=== PATIENT | female | born 1955 | race Caucasian/White ===

== ENCOUNTER → 2017-11-06 14:02 | Outpatient (CLI) | payer OTHER, SELFPAY ==
--- NOTE | 2017-11-06 14:09 | RAD_ITS ---
STUDY: X-RAY - RIGHT WRIST REASON FOR EXAM: Female, 62 years old. Wrist pain. Fall. TECHNIQUE: 4 view(s) of the wrist were obtained. COMPARISON: None. FINDINGS: Normal visualized distal radius and ulna. Normal radiocarpal articulation. Normal distal radioulnar articulation. Normal carpal bones. Normal carpal articulations. Normal carpometacarpal articulation of the thumb. Normal second through fifth carpometacarpal articulations. Normal visualized metacarpal bones. The soft tissue structures are unremarkable. There is no demonstrated acute fracture. RAD/Wrist min 3 Views IMPRESSION: Normal x-ray examination of the wrist. Electronically Signed: Amos Vega MD at 10:01 EDT , Service support ,
[2017-11-06 16:02] LABS: Color, Urine Yellow (Yellow); Glucose, Dipstick Normal (Normal); Ketone-Dipstick Negative (Negative); Leukocyte Esterase-Dipstick Negative /ul (Negative); Nitrite-Dipstick Negative (Negative); Occult Blood-Urine Negative /ul (Negative); Protein-Dipstick Negative (Negative); Urine Bilirubin Dipstick Negative (Negative); Urine Clarity Clear (Clear); Urine Urobilinogen Normal (Normal)
[2017-11-06 16:12] LABS: Albumin, Serum 3.8 g/dL (3.2-5.0); BUN 14 mg/dL (7-18); BUN/Creat Ratio 14.8 RATIO (10-20); Calcium,Total 8.5 mg/dL (8.5-10.1); Chloride 107 mmol/L (98-107); Creatinine, Serum 0.95 mg/dL (0.55-1.02); EST Glomerular Filtration Rate 64 mL/min (>60); Est Glom Filt Rate - Afr Amer 77 mL/min (>60); Glucose 96 mg/dL (74-106); Sodium Level 142 mmol/L (136-145)
== END ==
PROVIDERS: Internal Medicine Rheumatology; Family Provider Family Medicine; PCP Family Medicine; Visit Provider Family Medicine
DX: M25.531 Pain in right wrist (principal); N28.9 Disorder of kidney and ureter, unspecified
CPT/HCPCS: 36415; 73110; 80069; 81002

== ENCOUNTER → 2017-12-18 06:16 | Outpatient (CLI) | payer OTHER, SELFPAY ==
[2017-12-18 07:07] LABS: Absolute Lymphocyte Count 1.76 X10^3/ul (0.83-4.51); Absolute Neutrophil Count 4.2 X10^3/uL (2.0-7.7); Basophil# 0.03 X10^3/uL; Basophil% 0.5 % (0-1); Eosinophil# 0.19 X10^3/uL; Eosinophils% 2.9 % (0-5); Hematocrit 40.6 % (37-47); Hemoglobin 13.2 g/dl (12.0-15.0); Lymphocyte # 1.76 X10^3/ul (4.0); Mean Corp Hgb Conc 32.5 g/gl (32-36); Mean Corpuscular Hgb 30.3 pg (27.0-32.0); Mean Corpuscular Volume 93.1 fL (81-99); Mean Platelet Vol. 11.7 fl (6.2-12.0); Monocyte# 0.36 X10^3/uL; Monocyte% 5.5 % (0-10); Neutrophil # 4.16 X10^3/uL (2.7-7.7); Neutrophil % 63.9 % (47-70); Platelet Count 258 K/mm3 (150-450); RBC Distribution Width CV 13.7 % (11.6-14.6); RBC Distribution Width SD 46.7 fl (35.1-43.9); Red Blood Count 4.36 M/mm3 (4.2-5.4); White Blood Count 6.5 K/mm3 (4.4-11.0)
[2017-12-18 07:40] LABS: AST(SGOT) 25 U/L (15-37); Alanine Aminotransfer ALT/SGPT 46 U/L (13-56); Albumin, Serum 3.6 g/dL (3.2-5.0); Alkaline Phosphatase 42 U/L (45-117); Anion Gap 6 (5-15); BUN 19 mg/dL (7-18); BUN/Creat Ratio 24.8 RATIO (10-20); Calcium,Total 8.5 mg/dL (8.5-10.1); Chloride 108 mmol/L (98-107); Creatinine, Serum 0.76 mg/dL (0.55-1.02); EST Glomerular Filtration Rate 82 mL/min (>60); Est Glom Filt Rate - Afr Amer 99 mL/min (>60); Estradiol 38.3 pg/mL; Follicle Stimulating Hormone 31.2 mIU/mL; Free T3 2.3 pg/mL (2.18-3.98); Globulin 3.6 g/dL (2.2-4.2); Glucose 102 mg/dL (74-106); Protein, Total 7.2 g/dL (6.4-8.2); Sodium Level 138 mmol/L (136-145); T4 Total, Thyroxin 7.3 ug/dL (4.8-13.9)
[2017-12-18 07:58] LABS: POSITIVE COUNT NO; POSITIVE DIFFERENTIAL NO; POSITIVE MORPHOLOGY NO
== END ==
PROVIDERS: Family Provider Family Medicine; PCP Family Medicine; Visit Provider Nurse Practitioner Family
DX: E03.8 Other specified hypothyroidism (principal); E34.9 Endocrine disorder, unspecified; R53.83 Other fatigue
CPT/HCPCS: 36415; 80053; 82670; 83001; 84403; 84436; 84443; 84481; 85025

== ENCOUNTER → 2018-11-07 07:47 | Outpatient (CLI) | payer OTHER, SELFPAY ==
[2018-11-07 08:47] LABS: Absolute Lymphocyte Count 1.17 X10^3/ul (0.83-4.51); Absolute Neutrophil Count 4.6 X10^3/uL (2.0-7.7); Basophil# 0.06 X10^3/uL; Basophil% 0.8 % (0-1); Eosinophil# 0.93 X10^3/uL; Eosinophils% 11.9 % (0-5); Hemoglobin 14.1 g/dl (12.0-15.0); Lymphocyte # 1.17 X10^3/ul (4.0); Lymphocyte % 14.9 % (19-41); Mean Corp Hgb Conc 33.6 g/gl (32-36); Mean Corpuscular Hgb 31.6 pg (27.0-32.0); Mean Corpuscular Volume 94.2 fL (81-99); Mean Platelet Vol. 11.9 fl (6.2-12.0); Monocyte# 1.08 X10^3/uL; Monocyte% 13.8 % (0-10); Neutrophil # 4.57 X10^3/uL (2.7-7.7); Neutrophil % 58.3 % (47-70); Platelet Count 247 K/mm3 (150-450); RBC Distribution Width CV 13.6 % (11.6-14.6); RBC Distribution Width SD 45.1 fl (35.1-43.9); Red Blood Count 4.46 M/mm3 (4.2-5.4); White Blood Count 7.8 K/mm3 (4.4-11.0)
[2018-11-07 08:50] LABS: POSITIVE COUNT NO; POSITIVE DIFFERENTIAL NO; POSITIVE MORPHOLOGY NO
[2018-11-07 09:22] LABS: ALB/GLOB Ratio 1.1 RATIO (0.9-2.4); AST(SGOT) 16 U/L (15-37); Alanine Aminotransfer ALT/SGPT 25 U/L (13-56); Albumin, Serum 3.9 g/dL (3.2-5.0); Alkaline Phosphatase 32 U/L (45-117); Anion Gap 4 (5-15); BUN 14 mg/dL (7-18); BUN/Creat Ratio 20.4 RATIO (10-20); Calcium,Total 8.8 mg/dL (8.5-10.1); Chloride 108 mmol/L (98-107); Cholesterol 146 mg/dL (200); Creatinine, Serum 0.68 mg/dL (0.55-1.02); EST Glomerular Filtration Rate 92 mL/min (>60); Est Glom Filt Rate - Afr Amer 112 mL/min (>60); Follicle Stimulating Hormone 18.9 mIU/mL; Globulin 3.5 g/dL (2.2-4.2); Glucose 99 mg/dL (74-106); High Density Lipoprotein 61 mg/dL; Luteinizing Hormone 6.2 mIU/mL; Protein, Total 7.4 g/dL (6.4-8.2); Sodium Level 137 mmol/L (136-145); T4 Total, Thyroxin 7.4 ug/dL (4.8-13.9); Thyroid Stim Hormone (TSH) 1.84 uIU/mL (0.358-3.74); Triglycerides 70 mg/dL; Very Low Density Lipoprotein 14 mg/dL (5-40)
[2018-11-07 10:56] LABS: Progesterone Level 18.31 ng/mL (See Comment); Vitamin B12 556 pg/mL (211-911); Vitamin D,25 Hydroxy 51.2 ng/mL (29.95-100.01)
[2018-11-08 10:26] LABS: Thyroid Peroxidase AB 23 IU/mL (0-34)
== END ==
PROVIDERS: Family Provider Family Medicine; PCP Family Medicine; Referring Provider Nurse Practitioner Family; Visit Provider Nurse Practitioner Family
DX: E55.9 Vitamin D deficiency, unspecified (principal); E34.9 Endocrine disorder, unspecified; Z79.890 Hormone replacement therapy; Z13.220 Encounter for screening for lipoid disorders; R53.83 Other fatigue
CPT/HCPCS: 36415; 80053; 80061; 82306; 82607; 83001; 83002; 84144; 84436; 84443; 84481; 85025; 86376

== ENCOUNTER → 2019-08-25 | Outpatient (CLI) | payer OTHER, SELFPAY ==
[2019-08-25 07:01] LABS: Absolute Lymphocyte Count 1.59 X10^3/uL (0.83-4.51); Absolute Neutrophil Count 6.1 X10^3/uL (2.0-7.7); Basophil# 0.09 X10^3/uL; Eosinophil# 0.52 X10^3/uL; Eosinophils% 5.8 % (0-5); Hematocrit 42.5 % (37-47); Hemoglobin 14.1 g/dL (12.0-15.0); Lymphocyte # 1.59 X10^3/ul (4.0); Lymphocyte % 17.7 % (19-41); Mean Corp Hgb Conc 33.2 g/dL (32-36); Mean Corpuscular Hgb 32.3 pg (27.0-32.0); Mean Corpuscular Volume 97.5 fL (81-99); Mean Platelet Vol. 11.4 fl (6.2-12.0); Monocyte# 0.69 X10^3/uL; Monocyte% 7.7 % (0-10); NRBC Flagged by Analyzer 0 % (0-5); Neutrophil # 6.07 X10^3/uL (2.7-7.7); Neutrophil % 67.5 % (47-70); Platelet Count 272 K/mm3 (150-450); RBC Distribution Width CV 13.5 % (11.6-14.6); RBC Distribution Width SD 48.3 fl (35.1-43.9); Red Blood Count 4.36 M/mm3 (4.2-5.4)
[2019-08-25 07:27] LABS: ALB/GLOB Ratio 1.1 RATIO (0.9-2.4); AST(SGOT) 12 U/L (15-37); Alanine Aminotransfer ALT/SGPT 26 U/L (13-56); Albumin, Serum 3.7 g/dL (3.2-5.0); Alkaline Phosphatase 30 U/L (45-117); Anion Gap 7 (5-15); BUN 24 mg/dL (7-18); BUN/Creat Ratio 28.9 RATIO (10-20); Calcium,Total 8.4 mg/dL (8.5-10.1); Chloride 112 mmol/L (98-107); Cholesterol 152 mg/dL (200); Creatinine, Serum 0.83 mg/dL (0.55-1.02); EST Glomerular Filtration Rate 74 mL/min (>60); Est Glom Filt Rate - Afr Amer 89 mL/min (>60); Globulin 3.4 g/dL (2.2-4.2); Glucose 96 mg/dL (74-106); High Density Lipoprotein 64 mg/dL; Potassium 3.8 mmol/L (3.5-5.1); Protein, Total 7.1 g/dL (6.4-8.2); Sodium Level 141 mmol/L (136-145); Triglycerides 56 mg/dL; Very Low Density Lipoprotein 11 mg/dL (5-40)
== END | disposition home or self-care (01) ==
LOC: LAB.FUTURE 06:10 → LAB 12:30
PROVIDERS: PCP Family Medicine; Referring Provider Family Medicine; Visit Provider Family Medicine
DX: Z00.00 Encounter for general adult medical examination without abnormal findings (principal)
CPT/HCPCS: 36415; 80053; 80061; 85025

== ENCOUNTER → 2019-10-29 | Outpatient (CLI) | payer OTHER, SELFPAY ==
[2019-10-29 07:02] LABS: Absolute Neutrophil Count 5.1 X10^3/uL (2.0-7.7); Basophil# 0.09 X10^3/uL; Basophil% 1.1 % (0-1); Eosinophil# 0.26 X10^3/uL; Eosinophils% 3.3 % (0-5); Hematocrit 42.3 % (37-47); Hemoglobin 14.2 g/dL (12.0-15.0); Lymphocyte % 22.8 % (19-41); Mean Corp Hgb Conc 33.6 g/dL (32-36); Mean Corpuscular Hgb 32.3 pg (27.0-32.0); Mean Corpuscular Volume 96.1 fL (81-99); Mean Platelet Vol. 11.5 fl (6.2-12.0); Monocyte# 0.64 X10^3/uL; Monocyte% 8.1 % (0-10); NRBC Flagged by Analyzer 0 % (0-5); Neutrophil # 5.07 X10^3/uL (2.7-7.7); Neutrophil % 64.2 % (47-70); Platelet Count 263 K/mm3 (150-450); RBC Distribution Width CV 13.3 % (11.6-14.6); RBC Distribution Width SD 47.1 fl (35.1-43.9); White Blood Count 7.9 K/mm3 (4.4-11.0)
[2019-10-29 07:30] LABS: Hemoglobin A1c 5.5 % (4.2-6.3)
[2019-10-29 07:36] LABS: ALB/GLOB Ratio 1.1 RATIO (0.9-2.4); AST(SGOT) 9 U/L (15-37); Alanine Aminotransfer ALT/SGPT 23 U/L (13-56); Albumin, Serum 3.9 g/dL (3.2-5.0); Alkaline Phosphatase 30 U/L (45-117); Anion Gap 9 (5-15); BUN 21 mg/dL (7-18); BUN/Creat Ratio 27.8 RATIO (10-20); Calcium,Total 8.4 mg/dL (8.5-10.1); Chloride 112 mmol/L (98-107); Cholesterol 170 mg/dL (200); Creatinine, Serum 0.76 mg/dL (0.55-1.02); EST Glomerular Filtration Rate 82 mL/min (>60); Est Glom Filt Rate - Afr Amer 100 mL/min (>60); Estradiol 57.2 pg/mL; Follicle Stimulating Hormone 16.7 mIU/mL; Free T3 2.2 pg/mL (2.18-3.98); Globulin 3.5 g/dL (2.2-4.2); Glucose 108 mg/dL (74-106); High Density Lipoprotein 60 mg/dL; Luteinizing Hormone 9.5 mIU/mL; Potassium 3.9 mmol/L (3.5-5.1); Protein, Total 7.4 g/dL (6.4-8.2); Sodium Level 142 mmol/L (136-145); T4 Total, Thyroxin 6.6 ug/dL (4.8-13.9); Thyroid Stim Hormone (TSH) 2.71 uIU/mL (0.358-3.74); Triglycerides 95 mg/dL; Very Low Density Lipoprotein 19 mg/dL (5-40)
[2019-10-29 08:00] LABS: Progesterone Level 16.92 ng/mL (See Comment); Vitamin B12 491 pg/mL (211-911); Vitamin D,25 Hydroxy 79.1 ng/mL
[2019-10-30 15:47] LABS: Thyroid Peroxidase AB < 9 IU/mL (0-34)
== END | disposition home or self-care (01) ==
PROVIDERS: PCP Family Medicine
DX: L40.50 Arthropathic psoriasis, unspecified (principal); E34.9 Endocrine disorder, unspecified; E03.8 Other specified hypothyroidism; E55.9 Vitamin D deficiency, unspecified; Z13.1 Encounter for screening for diabetes mellitus; Z13.220 Encounter for screening for lipoid disorders
CPT/HCPCS: 36415; 80053; 80061; 82306; 82607; 82627; 82670; 83001; 83002; 83036; 84144; 84403; 84436; 84443; 84481; 85025; 86376; 82626

== ENCOUNTER → 2020-05-26 14:02 | Outpatient (CLI) | payer OTHER, SELFPAY ==
[2020-05-29 03:07] LABS: QNTFERON TB Mitogen Value > 10.00 IU/mL (.); QNTFERON TB Nil Value 0.05 IU/mL (.); QNTFERON TB1+ Ag Value 0.09 IU/mL (.); QNTFERON TB2+ Ag Value 0.08 IU/mL (.)
[2020-05-31 04:28] LABS: QNTIFERON TB Positive Criteria Negative (Negative)
== END ==
PROVIDERS: PCP Family Medicine
DX: L40.0 Psoriasis vulgaris (principal); Z79.899 Other long term (current) drug therapy
CPT/HCPCS: 36415; 86480

== ENCOUNTER → 2020-11-09 06:48 | Outpatient (CLI) | payer OTHER, SELFPAY ==
[2020-11-09 07:46] LABS: Absolute Lymphocyte Count 1.59 X10^3/uL (0.83-4.51); Absolute Neutrophil Count 6.3 X10^3/uL (2.0-7.7); Basophil# 0.07 X10^3/uL; Basophil% 0.8 % (0-1); Eosinophil# 0.36 X10^3/uL; Hematocrit 42.5 % (37-47); Hemoglobin 13.5 g/dL (12.0-15.0); Lymphocyte # 1.59 X10^3/ul (0.83-4.51); Lymphocyte % 17.6 % (19-41); Mean Corp Hgb Conc 31.8 g/dL (32-36); Mean Corpuscular Hgb 31.6 pg (27.0-32.0); Mean Corpuscular Volume 99.5 fL (81-99); Mean Platelet Vol. 12.3 fl (6.2-12.0); Monocyte% 7.8 % (0-10); NRBC Flagged by Analyzer 0 % (0-5); Neutrophil # 6.27 X10^3/uL (2.7-7.7); Neutrophil % 69.4 % (47-70); Platelet Count 271 K/mm3 (150-450); RBC Distribution Width SD 51.4 fl (35.1-43.9); Red Blood Count 4.27 M/mm3 (4.2-5.4)
[2020-11-09 08:16] LABS: AST(SGOT) 12 U/L (15-37); Alanine Aminotransfer ALT/SGPT 22 U/L (13-56); Albumin, Serum 3.5 g/dL (3.2-5.0); Alkaline Phosphatase 26 U/L (45-117); Anion Gap 3 (5-15); BUN 16 mg/dL (7-18); Calcium,Total 8.3 mg/dL (8.5-10.1); Chloride 113 mmol/L (98-107); Cholesterol 155 mg/dL (200); EST Glomerular Filtration Rate 90 mL/min (>60); Est Glom Filt Rate - Afr Amer 109 mL/min (>60); Globulin 3.4 g/dL (2.2-4.2); Glucose 97 mg/dL (74-106); High Density Lipoprotein 51 mg/dL; Protein, Total 6.9 g/dL (6.4-8.2); Sodium Level 140 mmol/L (136-145); T4 Free Direct 0.65 ng/dL (0.76-1.46); Thyroid Stim Hormone (TSH) 2.16 uIU/mL (0.358-3.74); Triglycerides 73 mg/dL; Very Low Density Lipoprotein 15 mg/dL (5-40)
== END ==
PROVIDERS: PCP Family Medicine; Referring Provider Family Medicine; Visit Provider Family Medicine
DX: I10 Essential (primary) hypertension (principal); K75.81 Nonalcoholic steatohepatitis (NASH); E03.9 Hypothyroidism, unspecified
CPT/HCPCS: 36415; 80053; 80061; 84439; 84443; 85025

== ENCOUNTER → 2021-03-01 12:46 | Outpatient (CLI) | payer OTHER, SELFPAY ==
[2021-03-01 13:50] LABS: Absolute Neutrophil Count 4.6 X10^3/uL (2.0-7.7); Basophil# 0.06 X10^3/uL; Basophil% 0.8 % (0-1); Eosinophil# 0.25 X10^3/uL; Eosinophils% 3.2 % (0-5); Hematocrit 44.8 % (37-47); Hemoglobin 14.5 g/dL (12.0-15.0); Lymphocyte % 28.3 % (19-41); Mean Corp Hgb Conc 32.4 g/dL (32-36); Mean Corpuscular Volume 95.7 fL (81-99); Mean Platelet Vol. 11.5 fl (6.2-12.0); Monocyte# 0.64 X10^3/uL; Monocyte% 8.2 % (0-10); NRBC Flagged by Analyzer 0 % (0-5); Neutrophil # 4.61 X10^3/uL (2.7-7.7); Neutrophil % 59.2 % (47-70); Platelet Count 270 K/mm3 (150-450); RBC Distribution Width CV 13.4 % (11.6-14.6); RBC Distribution Width SD 47.3 fl (35.1-43.9); Red Blood Count 4.68 M/mm3 (4.2-5.4); White Blood Count 7.8 K/mm3 (4.4-11.0)
== END ==
PROVIDERS: PCP Family Medicine
DX: D72.829 Elevated white blood cell count, unspecified (principal)
CPT/HCPCS: 36415; 85025

== ENCOUNTER → 2021-04-07 05:55 | Outpatient (CLI) | payer OTHER, SELFPAY ==
[2021-04-14 00:07] LABS: QNTFERON TB Mitogen Value > 10.00 IU/mL (.); QNTFERON TB Nil Value 0.05 IU/mL (.); QNTFERON TB1+ Ag Value 0.07 IU/mL (.); QNTFERON TB2+ Ag Value 0.16 IU/mL (.)
[2021-04-14 15:18] LABS: QNTIFERON TB Positive Criteria Negative (Negative)
== END ==
PROVIDERS: PCP Family Medicine
DX: L40.0 Psoriasis vulgaris (principal); Z79.899 Other long term (current) drug therapy
CPT/HCPCS: 36415; 86480

== ENCOUNTER 2021-07-20 06:02 | Outpatient (CLI) | payer OTHER, SELFPAY ==
[2021-07-20 07:39] LABS: Absolute Lymphocyte Count 2.24 X10^3/uL (0.83-4.51); Absolute Neutrophil Count 4.2 X10^3/uL (2.0-7.7); Basophil# 0.09 X10^3/uL; Basophil% 1.2 % (0-1); Eosinophil# 0.49 X10^3/uL; Eosinophils% 6.4 % (0-5); Hematocrit 45.1 % (37-47); Hemoglobin 15.2 g/dL (12.0-15.0); Lymphocyte # 2.24 X10^3/ul (0.83-4.51); Lymphocyte % 29.2 % (19-41); Mean Corp Hgb Conc 33.7 g/dL (32-36); Mean Corpuscular Hgb 31.9 pg (27.0-32.0); Mean Corpuscular Volume 94.5 fL (81-99); Mean Platelet Vol. 11.3 fl (6.2-12.0); Monocyte# 0.62 X10^3/uL; Monocyte% 8.1 % (0-10); NRBC Flagged by Analyzer 0 % (0-5); Neutrophil # 4.17 X10^3/uL (2.7-7.7); Neutrophil % 54.4 % (47-70); Platelet Count 334 K/mm3 (150-450); RBC Distribution Width CV 13.2 % (11.6-14.6); RBC Distribution Width SD 45.4 fl (35.1-43.9); Red Blood Count 4.77 M/mm3 (4.2-5.4); White Blood Count 7.7 K/mm3 (4.4-11.0)
[2021-07-20 08:30] LABS: Vitamin D,25 Hydroxy 70.2 ng/mL
[2021-07-20 10:46] LABS: ALB/GLOB Ratio 1.1 RATIO (0.9-2.4); AST(SGOT) 16 U/L (15-37); Alanine Aminotransfer ALT/SGPT 31 U/L (13-56); Alkaline Phosphatase 29 U/L (45-117); Anion Gap 7 (5-15); BUN 17 mg/dL (7-18); Calcium,Total 9.1 mg/dL (8.5-10.1); Chloride 105 mmol/L (98-107); Cholesterol 160 mg/dL (200); EST Glomerular Filtration Rate 67 mL/min (>60); Est Glom Filt Rate - Afr Amer 81 mL/min (>60); Globulin 3.7 g/dL (2.2-4.2); Glucose 115 mg/dL (74-106); High Density Lipoprotein 52 mg/dL; Potassium 4.3 mmol/L (3.5-5.1); Protein, Total 7.7 g/dL (6.4-8.2); Sodium Level 137 mmol/L (136-145); T4 Free Direct 0.84 ng/dL (0.76-1.46); Thyroid Stim Hormone (TSH) 2.84 uIU/mL (0.358-3.74); Triglycerides 90 mg/dL; Very Low Density Lipoprotein 18 mg/dL (5-40)
== END 2021-07-20 23:59 | disposition short-term general hospital (02) ==
LOC: LAB 06:06
PROVIDERS: PCP Family Medicine; Referring Provider Family Medicine; Visit Provider Family Medicine
DX: Z00.00 Encounter for general adult medical examination without abnormal findings (principal); E03.9 Hypothyroidism, unspecified; M85.80 Other specified disorders of bone density and structure, unspecified site
CPT/HCPCS: 36415; 80053; 80061; 82306; 84439; 84443; 85025

== ENCOUNTER → 2022-02-24 | Outpatient (CLI) | payer MEDICARE, OTHER, SELFPAY ==
[2022-02-24 13:50] LABS: Estradiol 27.2 pg/mL
[2022-02-26 11:40] LABS: DHEA Sulfate 86.9 ug/dL (20.4-186.6)
== END | disposition home or self-care (01) ==
LOC: LAB 12:05
PROVIDERS: PCP Family Medicine; Referring Provider Family Medicine; Visit Provider Family Medicine
DX: R79.89 Other specified abnormal findings of blood chemistry (principal); E28.39 Other primary ovarian failure
CPT/HCPCS: 36415; 82627; 82670; 84144; 84403; 82626

== ENCOUNTER → 2022-06-05 | Outpatient (CLI) | payer MEDICARE, OTHER, SELFPAY ==
--- NOTE | 2022-06-05 08:52 | BI_ITS ---
MAMMOGRAPHY - BILATERAL SCREENING REASON FOR EXAM: Female, 66 years old. Routine annual screening examination. PERTINENT HISTORY: Non-contributory. TECHNIQUE: Digital bilateral breast joelle (3D mammographic acquisition) in the CC and MLO projections. 2-D mediolateral oblique (MLO) and craniocaudad (CC) views of both breasts were obtained. CAD: Full Field Digital Mammography with Computer Added Detection was performed. COMPARISON: Comparison is made with prior EXAMINATION 05/09/2021 and 09/09/2013. FINDINGS: Breast Composition: There are scattered areas of fibroglandular density. There are no dominant masses or suspicious calcifications. Stable benign-appearing bilateral axillary lymph nodes. No other significant abnormalities are identified. There has been no significant change since the prior study. BI/SCRN MAMM (CAD)W/JOELLE BILAT IMPRESSION: Stable bilateral screening mammogram. Yearly follow-up mammogram recommended. (A) ASSESSMENT CATEGORY: BIRADS Category 2: Benign. A letter regarding these results will be sent to the patient by the facility within 30 days. Approximately 10% of breast cancers are not detected by mammography. A normal mammogram should not delay biopsy of a clinically suspicious abnormality. [id number] Electronically Signed: Uvaldo Villa MD at 10:16 EST ,
== END | disposition home or self-care (01) ==
LOC: OPBI 08:50
PROVIDERS: PCP Family Medicine; Referring Provider Family Medicine; Visit Provider Family Medicine
DX: Z12.31 Encounter for screening mammogram for malignant neoplasm of breast (principal)
CPT/HCPCS: 77063; 77067

== ENCOUNTER → 2022-06-09 | Outpatient (CLI) | payer MEDICARE, OTHER, SELFPAY ==
[2022-06-09 11:55] LABS: Progesterone Level 0.33 ng/mL (See Comment)
== END | disposition home or self-care (01) ==
LOC: LAB 09:38
PROVIDERS: PCP Family Medicine; Referring Provider Family Medicine; Visit Provider Family Medicine
DX: E34.9 Endocrine disorder, unspecified (principal)
CPT/HCPCS: 36415; 84144

== ENCOUNTER 2022-06-24 06:14 | Emergency (ER) | payer MEDICARE, OTHER, SELFPAY ==
[2022-06-24 06:18] VITALS: BP 148/101; PULSE 97; RESP 18; TEMP 36.8; O2SAT 94; BMI 29.9
--- NOTE | 2022-06-24 06:45 | EDS_ITS ---
HPI History of Present Illness Chief Complaint: Cold Sx Narrative Narrative: Patient is a 66-year-old female with past medical history of hypothyroid disease. She states she has had nasal congestion for approximately 1 month. She reports in the last 24 hours she feels like its been more persistent. She denies any fevers or chills or known sick contact. She denies any difficulty breathing or swallowing. However with the recent increase in the nasal congestion she was concerned about possible infection and therefore comes in for evaluation [facility] Medical History Arthritis Home Medications azelastine-fluticasone 137 mcg-50 mcg/spray nasal spray (Dymista) 1 spray intranasal BID #23 grams 06/24/22 [Rx Last Taken Unknown] leflunomide 20 mg tablet 20 mg PO DAILY 06/24/22 [History Last Taken Unknown] meloxicam 7.5 mg tablet 7.5 mg PO BID PRN PRN Pain 06/24/22 [History Last Taken Unknown] prednisone 20 mg tablet 40 mg PO DAILY 5 days #10 tabs 06/24/22 [Rx Last Taken Unknown] thyroid (pork) 60 mg tablet ([place] Thyroid) 60 mg PO DAILY 06/24/22 [History Last Taken Unknown] Allergy/AdvReac Type Severity Reaction Status Date / Time cefdinir Allergy Nausea Verified 06/24/22 06:15 Penicillins [PCN] Allergy Other Verified 06/24/22 06:15 Surgical History (Updated 06/24/22 @ 06:17 by Adelso Matos) H/O: hysterectomy Social History Smoking Status: Never smoker [facility] ED Constitutional Constitutional ED: Denies chills or fever(s) Eyes Eyes: Denies change in vision ENT ENT ED: Reports ear pain, rhinorrhea and sore throat Cardiovascular Cardiovascular: Denies chest pain Respiratory/Chest Respiratory/Chest: Denies cough or dyspnea Gastrointestinal Gastrointestinal: Denies abdominal pain, diarrhea, nausea or vomiting Genitourinary Genitourinary ED: Denies dysuria Musculoskeletal Musculoskeletal: Denies myalgias Integumentary Denies rash Neurologic Neurologic: Reports headache(s) Hematologic/Lymphatic Hematologic/Lymphatic: Denies easy bleeding or easy bruising EXAM Physical Exam Const Vital Signs: 06/24/22 06:18 06/24/22 06:22 Temperature 98.3 F Temperature Source Oral Pulse Rate 97 Respiratory Rate 18 Respiratory Effort Normal Respiratory Pattern Irregular Blood Pressure 148/101 H Blood Pressure Mean 116 Pulse Ox 94 Oxygen Delivery Method Room Air Positive well nourished and well developed General Appearance ED: well developed HEENT Reports moist mucous membranes HEENT Narrative: Nasal mucosa is hyperemic and boggy with enlarged inferior nasal turbinates. There is cobblestoning the posterior pharynx consistent with sinus drainage without airway edema or compromise. No trismus change in voice or difficulty with secretions. No tonsil hypertrophy or exudates noted. Bilateral TMs are retracted but show no secondary changes to suggest infection No severe pain with palpation over top the maxillary frontal or ethmoid sinuses Eyes PERRL and EOMs intact bilaterally Neck supple Neck Narrative: Positive anterior cervical lymphadenopathy noted Resp normal respiratory effort and clear to auscultation bilaterally Cardio regular rate and regular rhythm Extremity normal to inspection Neuro oriented x3 and CN's II-XII intact bilaterally Sensorium / Orientation: alert Psych mental status grossly normal Skin no rashes or lesions noted MDM MDM MDM Narrative Medical decision making narrative: Patient presented to the ER hypertensive but otherwise with stable vitals. She reported a longstanding history of nasal congestion that was worse in the last 24 hours. On exam she has an enlarged/inflamed nasal turbinates and a hyperemic mucosa consistent with her symptoms. There is no signs of infection in the posterior pharynx. We discussed possible viral swabs such as COVID and influenza but as patient is afebrile and has minimal cough she did not want these obtained. Therefore at this time she is in no respiratory distress does not have signs of posterior pharynx infection and her exam is most consistent with nasal inflammation from a viral source. Therefore she will be given symptomatic medication but is otherwise safe for discharge. She will be given ENT to follow-up with based on the persistent nature of her symptoms in order to discuss further testing. Discharge Plan Triage Chief Complaint: Cold Sx ED Provider: Bon Gaston Dx/Rx/DC Orders Clinical Impression: Hypertrophy of both inferior nasal turbinates, Chronic nasal congestion Instructions: Anatomy Nasal, ED Upper Resp Infec Abx Tx Prescriptions: New azelastine-fluticasone [Dymista] 137-50 mcg/spray spray,non-aerosol 1 spray intranasal BID Qty: 23 2RF Rx Instructions: administer into each nostril prednisone 20 mg tablet 40 mg PO DAILY 5 Days Qty: 10 0RF No Action leflunomide 20 mg tablet 20 mg PO DAILY Label Comments: TAKE 1 TABLET BY MOUTH EVERY DAY FOR 90 DAYS meloxicam 7.5 mg tablet 7.5 mg PO BID PRN PRN (Reason: Pain) thyroid (pork) [[place] Thyroid] 60 mg tablet 60 mg PO DAILY Label Comments: TAKE 1 TABLET BY MOUTH EVERY DAY ON AN EMPTY STOMACH Primary Care Provider: Hua Vieyra Referrals: Jared Larsen MD [Med Staff - Active Staff] - Hua Vieyra DO [Primary Care Provider] - Activity Restrictions/Additional Instructions: You may also use [id number] Afrin nasal spray by taking 2 sprays to each nostril once a day prior to bedtime for the next 6 nights to help with symptoms. Please follow-up with ENT to discuss further testing and treatment options because of your persistent symptoms and return to the ER should you have any further concerns Disposition Disposition: Home, Self Care
[2022-06-24] MEDS: dexAMETHasone 10 MG/ML Vial PO.IVFORM (06:56)
== END 2022-06-24 06:57 | disposition home or self-care (01) ==
LOC: ED 06:56
PROVIDERS: Emergency Provider Emergency Medicine; PCP Family Medicine; Visit Provider Emergency Medicine
DX: J34.3 Hypertrophy of nasal turbinates (principal); R09.81 Nasal congestion; E03.9 Hypothyroidism, unspecified; Z79.52 Long term (current) use of systemic steroids; Z79.899 Other long term (current) drug therapy
CPT/HCPCS: 99283

== ENCOUNTER → 2022-12-11 | Outpatient (CLI) | payer MEDICARE, OTHER, SELFPAY ==
--- NOTE | 2022-12-11 10:58 | MRI_ITS ---
EXAM: MR LEFT LOWER EXTREMITY WITHOUT INTRAVENOUS CONTRAST, KNEE CLINICAL INDICATION: INTERMITTENT LEFT MEDIAL KNEE PAIN TECHNIQUE: Multiplanar and multisequence MR images of the left knee without intravenous contrast. COMPARISON: No relevant prior studies available. FINDINGS: BONES/JOINTS: Moderate to severe osteoarthritic changes at the lateral patellofemoral articulation. No fracture. No synovial hypertrophy. No intra-articular body. No bone marrow signal alterations. EXTENSOR MECHANISM: Unremarkable. MEDIAL MENISCUS: Unremarkable. LATERAL MENISCUS: Unremarkable. MEDIAL CAPSULE/SUPPORTING STRUCTURES: Unremarkable. Intact. LATERAL CAPSULE/SUPPORTING STRUCTURES: Unremarkable. Lateral collateral ligamentous complex, inclusive of the popliteal tendon, are intact. ANTERIOR CRUCIATE LIGAMENT: Unremarkable. Intact. POSTERIOR CRUCIATE LIGAMENT: Unremarkable. Intact. MUSCLES: Unremarkable. CARTILAGE: Unremarkable. Intact. FLUID: Small popliteal cyst without evidence of leakage or rupture. No significant joint effusion. OTHER SOFT TISSUES: Prepatellar subcutaneous edema. MRI/Lower Ext Joint Only (Routine) IMPRESSION: 1. Moderate to severe osteoarthritic changes at the lateral patellofemoral articulation. 2. Small popliteal cyst with no significant joint effusion. 3. No other significant internal derangement. Electronically Signed: Bon Aguilera MD at 21:25 EDT ,
== END | disposition home or self-care (01) ==
LOC: MRI 10:52
PROVIDERS: PCP Family Medicine; Referring Provider Family Medicine; Visit Provider Family Medicine
DX: M25.562 Pain in left knee (principal)
CPT/HCPCS: 73721

== ENCOUNTER → 2022-12-12 | Outpatient (CLI) | payer MEDICARE, OTHER, SELFPAY ==
[2022-12-12 12:57] LABS: T4 Free Direct 0.88 ng/dL (0.76-1.46); Thyroid Stim Hormone (TSH) 3.32 uIU/mL (0.358-3.74)
== END | disposition home or self-care (01) ==
LOC: LAB.FUTURE 12-13 09:50
PROVIDERS: PCP Family Medicine; Referring Provider Family Medicine; Visit Provider Family Medicine
DX: E03.9 Hypothyroidism, unspecified (principal)
CPT/HCPCS: 36415; 84439; 84443

== ENCOUNTER → 2023-12-04 | Outpatient (CLI) | payer MEDICARE, OTHER, SELFPAY ==
--- NOTE | 2023-12-04 10:47 | BI_ITS ---
MAMMOGRAPHY - BILATERAL SCREENING REASON FOR EXAM: Female, 68 years old. Routine annual screening examination. PERTINENT HISTORY: Non-contributory. TECHNIQUE: Digital bilateral breast joelle (3D mammographic acquisition) in the CC and MLO projections. 2-D mediolateral oblique (MLO) and craniocaudad (CC) views of both breasts were obtained. CAD: Full Field Digital Mammography with Computer Added Detection was performed. COMPARISON: Comparison is made with prior study June 05, 2022 and September 09, 2013. FINDINGS: Breast Composition: There are scattered areas of fibroglandular density. There are no dominant masses or suspicious calcifications. Stable benign-appearing bilateral axillary lymph nodes. No other significant abnormalities are identified. There has been no significant change since the prior study. BI/SCRN MAMM (CAD)W/JOELLE BILAT IMPRESSION: Stable bilateral screening mammogram. Yearly follow-up mammogram recommended. (A) ASSESSMENT CATEGORY: BIRADS Category 3: Probably Benign - Short-Interval Follow-up Suggested. A letter regarding these results will be sent to the patient by the facility within 30 days. Approximately 10% of breast cancers are not detected by mammography. A normal mammogram should not delay biopsy of a clinically suspicious abnormality. [id number] Electronically Signed: Uvaldo Villa MD at 12:12 EDT ,
== END | disposition home or self-care (01) ==
PROVIDERS: PCP Family Medicine; Referring Provider Family Medicine; Visit Provider Family Medicine
DX: Z12.31 Encounter for screening mammogram for malignant neoplasm of breast (principal)
CPT/HCPCS: 77063; 77067

== ENCOUNTER → 2024-03-10 | Outpatient (CLI) | payer MEDICARE, OTHER, SELFPAY ==
[2024-03-10 15:29] LABS: Albumin, Serum 3.7 g/dL (3.2-5.0); BUN 23 mg/dL (7-18); BUN/Creat Ratio 21.1 RATIO (10-20); Calcium,Total 9.1 mg/dL (8.5-10.1); Chloride 104 mmol/L (98-107); Creatinine, Serum 1.09 mg/dL (0.55-1.02); EST Glomerular Filtration Rate 53 mL/min (>60); Est Glom Filt Rate - Afr Amer 64 mL/min (>60); Glucose 103 mg/dL (74-106); Phosphorus 3.2 mg/dL (2.5-4.9); Potassium 4.4 mmol/L (3.5-5.1); Sodium Level 137 mmol/L (136-145)
== END | disposition home or self-care (01) ==
LOC: MTLAB 11:37
PROVIDERS: PCP Family Medicine; Referring Provider Internal Medicine Rheumatology; Visit Provider Internal Medicine Rheumatology
DX: N28.9 Disorder of kidney and ureter, unspecified (principal)
CPT/HCPCS: 36415; 80069

== ENCOUNTER → 2024-03-29 | Outpatient (CLI) | payer MEDICARE, OTHER, SELFPAY ==
--- NOTE | 2024-03-29 06:48 | MRI_ITS ---
EXAM: MR LUMBAR SPINE WITHOUT INTRAVENOUS CONTRAST CLINICAL INDICATION: BACK PAIN INTO LEGS BILATERALLY TECHNIQUE: Multiplanar and multisequence MR images of the lumbar spine without intravenous contrast. COMPARISON: No relevant prior studies available. FINDINGS: VERTEBRAE: Localization/counting sequence demonstrates degenerative changes in the cervical and thoracic spine with at least moderate spinal canal stenosis in the lower cervical region. Vertebral body heights are preserved. Normal alignment. No spondylolisthesis. There is preservation of the normal lumbar lordosis. SPINAL CORD: No significant abnormality. Normal position and signal intensity of the conus medullaris. SOFT TISSUES: No significant abnormality. DISCS/SPINAL CANAL/NEURAL FORAMINA: L1-L2: Disc bulge and mild bilateral facet arthrosis. Mild spinal canal stenosis. No significant neural foraminal narrowing and no disc herniation. L2-L3: Central disc herniation superimposed upon a disc bulge and moderate bilateral facet arthrosis. Mild spinal canal stenosis and mild right greater than left neural foraminal narrowing. No nerve root impingement. L3-L4: Severe bilateral facet arthrosis and disc bulge with superimposed left foraminal to extraforaminal disc herniation. Moderate spinal canal stenosis and moderate bilateral neural foraminal narrowing. Impingement of the left L4 nerve root. L4-L5: Disc height loss and disc desiccation. Disc bulge with superimposed left central to subarticular disc herniation and severe bilateral facet arthrosis with ligamentum flavum thickening. On the left, there is a medial internal facet synovial cyst which contributes to the degree of severe spinal canal stenosis. There is severe left and moderate right neural foraminal narrowing. There is effacement of CSF from the thecal sac with crowding of the intrathecal nerve roots an indeterminate degree of intrathecal nerve root impingement. There is impingement of the left L4 and bilateral L5 nerve roots. L5-S1: Moderate bilateral facet arthrosis and disc bulge. Mild left and moderate right neural foraminal narrowing. Mild spinal canal stenosis. No nerve root impingement. OTHER FINDINGS: Symmetric mild arthrosis of the bilateral SI joints. MRI/Spine Lumbar (Routine) IMPRESSION: 1. Multilevel degenerative changes in the lumbar spine, worse at L4-5 resulting in severe spinal canal stenosis and severe left as well as moderate right neural foraminal narrowing. Indeterminate degree of intrathecal nerve root impingement at this level. Otherwise, at this level, there is left L4 and bilateral L5 nerve root impingement. Recommend spine surgery consultation if not already performed. 2. Localization/counting sequence demonstrates degenerative changes in the cervical and thoracic spine with at least moderate spinal canal stenosis in the lower cervical region. Consider follow-up dedicated imaging of the cervical and thoracic spine as clinically indicated. Electronically Signed: Speedy Kay DO at 23:27 EDT ,
== END | disposition home or self-care (01) ==
LOC: MRI 06:44
PROVIDERS: PCP Family Medicine; Referring Provider Family Medicine; Visit Provider Family Medicine
DX: M54.17 Radiculopathy, lumbosacral region (principal)
CPT/HCPCS: 72148

== ENCOUNTER 2024-04-02 10:00 | Outpatient (RCR) | payer MEDICARE, OTHER, SELFPAY | END 2024-04-02 19:00 | disposition home or self-care (01) | LOC: PT 10:00 | PROVIDERS: PCP Family Medicine; Referring Provider Family Medicine; Visit Provider Family Medicine | DX: M54.17 Radiculopathy, lumbosacral region (principal) | CPT/HCPCS: 97014; 97035; 97110; 97162; 97530; G0283 ==

== ENCOUNTER → 2024-04-08 | Outpatient (CLI) | payer MEDICARE, OTHER, SELFPAY ==
[2024-04-08 14:32] LABS: Albumin, Serum 4.1 g/dL (3.2-5.0); BUN 23 mg/dL (7-18); Calcium,Total 9.5 mg/dL (8.5-10.1); Chloride 104 mmol/L (98-107); Creatinine, Serum 0.96 mg/dL (0.55-1.02); EST Glomerular Filtration Rate 62 mL/min (>60); Est Glom Filt Rate - Afr Amer 75 mL/min (>60); Glucose 165 mg/dL (74-106); Potassium 4.3 mmol/L (3.5-5.1); Sodium Level 136 mmol/L (136-145)
== END | disposition home or self-care (01) ==
LOC: LAB 12:48
PROVIDERS: PCP Family Medicine; Referring Provider Internal Medicine Rheumatology; Visit Provider Internal Medicine Rheumatology
DX: N28.9 Disorder of kidney and ureter, unspecified (principal)
CPT/HCPCS: 36415; 80069

== ENCOUNTER 2024-08-20 10:59 | Inpatient (IN) | payer MEDICARE, OTHER, SELFPAY ==
--- NOTE | 2024-07-29 12:53 | EKG12_ITS ---
Test Reason : PRE OP Blood Pressure : */* mmHG Vent. Rate : 102 BPM Atrial Rate : 102 BPM P-R Int : 132 ms QRS Dur : 70 ms QT Int : 328 ms P-R-T Axes : 74 21 67 degrees QTcB Int : 427 ms Sinus tachycardia Low voltage QRS Borderline ECG Confirmed by MINERVA BELL, ULYSSES ([id number]), story editor ELMA JOHNSON ([id number]) on 07/30/2024 7:39:21 AM Referred By: ANABELLA SANCHEZ Confirmed By: ULYSSES PALMA MD
[2024-07-29 13:25] LABS: Absolute Lymphocyte Count 1.72 X10^3/uL (0.83-4.51); Absolute Neutrophil Count 4.8 X10^3/uL (2.0-7.7); Basophil# 0.08 X10^3/uL; Basophil% 1.1 % (0-1); Eosinophil# 0.23 X10^3/uL; Eosinophils% 3.1 % (0-5); Hematocrit 40.4 % (37-47); Hemoglobin 13.6 g/dL (12.0-15.0); Lymphocyte # 1.72 X10^3/ul (0.83-4.51); Lymphocyte % 23.4 % (19-41); Mean Corp Hgb Conc 33.7 g/dL (32-36); Mean Corpuscular Hgb 31.9 pg (27.0-32.0); Mean Corpuscular Volume 94.8 fL (81-99); Mean Platelet Vol. 10.3 fl (6.2-12.0); Monocyte# 0.48 X10^3/uL; Monocyte% 6.5 % (0-10); NRBC Flagged by Analyzer 0 % (0-5); Neutrophil # 4.79 X10^3/uL (2.7-7.7); Neutrophil % 65.4 % (47-70); Platelet Count 423 K/mm3 (150-450); RBC Distribution Width CV 13.9 % (11.6-14.6); RBC Distribution Width SD 48.2 fl (35.1-43.9); Red Blood Count 4.26 M/mm3 (4.2-5.4); White Blood Count 7.3 K/mm3 (4.4-11.0)
[2024-07-29 13:42] LABS: Magnesium 2.2 mg/dL (1.6-2.6)
[2024-07-29 13:45] LABS: Anion Gap 7 (5-15); BUN 12 mg/dL (7-18); BUN/Creat Ratio 13.7 RATIO (10-20); Calcium,Total 9.5 mg/dL (8.5-10.1); Chloride 104 mmol/L (98-107); Creatinine, Serum 0.88 mg/dL (0.55-1.02); EST Glomerular Filtration Rate 68 mL/min (>60); Est Glom Filt Rate - Afr Amer 82 mL/min (>60); Glucose 139 mg/dL (74-106); Potassium 3.9 mmol/L (3.5-5.1); Sodium Level 136 mmol/L (136-145)
[2024-07-29 14:38] LABS: HIV - WCH Non-Reactive (Nonreactive); Hepatitis B Surface Antibody Reactive; Hepatitis C Antibody Non-Reactive (Nonreactive)
--- NOTE | 2024-07-30 09:03 | PAT.ANE_ITS ---
Pre-Assessment Diagnosis/Proposed Procedure Planned Operative Procedure(s): 360 Lumbar Fusion L4-5 Anesthesia History Anesthesia History - inside sales account manager: Anesthesia History - inside sales account manager Hx Hospitalization No 07/28/24 14:33 Any Problems With Anesthesia No 07/28/24 14:33 Cholinesterase deficiency No 07/28/24 14:33 You/Your Family Experience No 07/28/24 14:33 fever (hyperthermia) with Relationship Recent Exposure to Contagious Disease Does patient have nerve No 07/28/24 14:33 stimulator Patient instructed to have device shut off --Does patient have Pacemaker or ICD? When Was Last Pacemaker Check QUESTION #4 FULL TEXT: You/Your Family Experience fever (hyperthermia) with Anesthesia Last Oral Intake Last Oral intake: Last Oral Intake NPO since Meds taken in AM with sips of water? Meds patient instructed to take am of surgery PONV PONV - inside sales account manager: PONV - inside sales account manager Female Yes 07/28/24 14:33 HX of Motion Sickness No 07/28/24 14:33 HX of N/V After Surgery No 07/28/24 14:33 Non-Smoker Yes 07/28/24 14:33 Duration of Surgery greater Yes 07/28/24 14:33 than 60 minutes Number of Risk Factors 3 07/28/24 14:33 PONV Score Moderate Risk 07/28/24 14:33 Height & Weight Height & Weight: Anesthesia: Height & Weight Height 5 ft 5 in 04/03/24 08:31 Respiratory Assessment Respiratory Assessment - inside sales account manager: Respiratory Tract Infection Hx - inside sales account manager Hx Respiratory Tract Infection Yes: SAW PCP 07/28/24 07/28/24 14:33 STOP Sleep Apnea STOP Sleep Apnea - inside sales account manager: STOP Sleep Apnea - inside sales account manager Hx Hypertension No 07/28/24 14:33 Hx Sleep Apnea No 07/28/24 14:33 CPAP BIPAP Do you snore loudly (louder No 07/28/24 14:33 than talking or can be heard Do you often feel tired/ No 07/28/24 14:33 fatigued/ sleepy during daytime? Has anyone observed you stop No 07/28/24 14:33 breathing during sleep? STOP Results Negative 07/28/24 14:33 QUESTION #5 FULL TEXT : Do you snore loudly (louder than talking or can be heard through closed doors)? Tobacco Use History Tobacco Use History - inside sales account manager: Tobacco Use History - inside sales account manager Tobacco Use Smoking Status Former smoker 07/28/24 14:33 Hx Tobacco Use No 07/28/24 14:33 Years Smoking Packs Smoked per Day Smoking Cessation Date was No - quit smoking greater 07/28/24 14:33 within the last 15 years than 15 years ago Hx Smoking Cessation Date Hx Smoking Cessation Counseling Hematologic Medial History Hematologic Hx - inside sales account manager: Hematologic Medical Hx - digital program manager Hx of Blood Transfusion No 07/28/24 14:33 Hx of Transfusion in last 3 No 07/28/24 14:33 Months Date of Last Transfusion (if within last 3 months) Ever experience any problems No 07/28/24 14:33 with transfusion(s)? Specify any problems Hx of Preganancy in last 3 No 07/28/24 14:33 Months Nurse Filling Out Transfusion MGRIFFITH 07/28/24 14:33 & Questions: Date: 07/28/24 07/28/24 14:33 Time: 14:36 07/28/24 14:33 Patient unable to answer at this time (ie. confused, unrespo /Reproduction History /Reproductive History - inside sales account manager: /Reproductive Hx- inside sales account manager Hx Now Gestational Age (in weeks): EDC: Hx Hx Para Hx Section SAB PFSH Medical History (Updated 07/28/24 @ 14:44 by Amirah Wells) Wears glasses Alcohol use Psoriatic arthritis Gastric reflux Former smoker Arthritis Home Medications ?Medication ?Instructions ?Recorded ?Last Taken ?Type leflunomide 20 mg tablet 20 mg PO DAILY PSORIATIC ART HRITIS 06/24/22 Unknown History guselkumab 100 mg/mL subcutaneous 100 mg subcut Q8W PS ORIATIC 12/27/22 Unknown History syringe (Tremfya) ARTHRITIS phentermine 37.5 mg tablet 37.5 mg PO QAM WEIGHT LOSS 04/03/24 Unknown History spironolactone 50 mg tablet 50 mg PO QDAY WATER RETENT ION 04/03/24 Unknown History duloxetine 30 mg capsule,delayed 30 mg PO DAILY USES F OR BACK 07/08/24 Unknown History release calcium carbonate (Tums) 300 mg PO TID PRN dyspepsia 07/28/24 Unknown History Allergy/AdvReac Type Severity Reaction Status Date / Time cefdinir Allergy Nausea Verified 07/28/24 10:54 Penicillins (PCN) Allergy Other Verified 07/28/24 10:54 Surgical History (Updated 07/28/24 @ 14:33 by Amirah Wells) History of colonoscopy H/O: hysterectomy Social History Smoking Status: Former smoker alcohol intake: current what type of physical activity do you participate in: other details: golf Audit: Pertinent Findings Pertinent Findings EKG Perinent findings: 07/29/2024 sinus tachycardia 102 bpm otherwise normal EKG except for low voltage QRS Recommendation Anesthesia Recommendation Anesthesia recommendation: OPTIMIZED for anesthesia
[2024-07-31 05:06] LABS: Hepatitis A AB, Total Negative (Negative)
[2024-08-20] VITALS (19 sets, daily range): BP systolic 117–144; BP diastolic 62–94; PULSE 75–93; RESP 16–18; TEMP 36–36.6; O2SAT 92–100; BMI 26.3
[2024-08-20] MEDS: Acetaminophen 500 MG Tablet 1000 MG PO ×3 (06:27→19:58)
[2024-08-20] MEDS: Magnesium 1 GM over 15 mins IV (06:28)
[2024-08-20] MEDS: 0.9% Normal Saline (1000mL) 1,000 ML 15 ML IV ×2 (06:28→15:55)
[2024-08-20 06:43] LABS: Bedside Glucose 105 mg/dL (74-106)
--- NOTE | 2024-08-20 07:07 | PRE.ANES_ITS ---
ASA Classification* ASA Classification ASA Classification: 3 Assessment & Plan Anesthesia* Anesthesia Assessment Anesthesia Assessment: Discussed sedation and/or anesthesia options, risks, benefits, and alternatives with patient/parents/legal guardian/POA. Questions invited. The patient/parents/legal guardian/POA seems to understand and agrees to proceed with anesthesia plan. Reviewed the physical assessment, medical history, allergy history and patient home medications list prior to surgery/procedure/anesthetic and documented any changes. Performed airway and anesthesia risk assessments. Procedural Plan Add'l anesthesia plan details: patient took pehntermine on sunday night, discussed her higher risk of PR/stroke/hypotension during surgery. discussed GA with ETT. Anesthesia Type Anesthesia Type: General History Source History Obtained from:: Patient Anesthesia Focused Assessment* Temperature: 97.6 F Pulse Rate: 85 Blood Pressure: 144/93 Respiratory Rate: 16 Pulse Ox: 99 Oxygen Delivery Method: Room Air Airway Assessment Mouth opens: 2 cm Mallampati Score: II Teeth Condition: Intact Neck Range of motion (ROM): Full ROM Focused Labs Anesthesia Preop lab: CBC WBC 7.3 K/mm3 (4.4-11.0) 07/29/24 13:08 07/29/24 RBC 4.26 M/mm3 (4.2-5.4) 07/29/24 13:07/29/24 Hgb 13.6 g/dL (12.0-15.0) 07/29/24 13:07/29/24 Hct 40.4 % (37-47) 07/29/24 13:07/29/24 Plt Count 423 K/mm3 (150-450) 07/29/24 13:07/29/24 CHEMISTRY Potassium 3.9 mmol/L (3.5-5.1) 07/29/24 13:07/29/24 Sodium 136 mmol/L (136-145) 07/29/24 13:07/29/24 Magnesium 2.2 mg/dL (1.6-2.6) 07/29/24 13:08 07/29/24 Phosphorus 3.0 mg/dL (2.5-4.9) 04/08/24 12:50 04/08/24 BUN 12 mg/dL (7-18) 07/29/24 13:08 07/29/24 Creatinine 0.88 mg/dL (0.55-1.02) 07/29/24 13:08 07/29/24 Glucose 139 mg/dL (74-106) H 07/29/24 13:08 07/29/24 POC Glucose 105 mg/dL (74-106) 08/20/24 06:25 08/20/24 TSH 3.32 uIU/mL (0.358-3.74) 12/12/22 09:23 COAG Pre-Assessment Diagnosis/Proposed Procedure Planned Operative Procedure(s): 360 Lumbar Fusion L4-5 Anesthesia History Anesthesia History - tin can feeder: Anesthesia History - tin can feeder Hx Hospitalization No 07/28/24 14:33 Any Problems With Anesthesia No 07/28/24 14:33 Cholinesterase deficiency No 07/28/24 14:33 You/Your Family Experience No 07/28/24 14:33 fever (hyperthermia) with Relationship Recent Exposure to Contagious No 08/20/24 06:30 Disease Does patient have nerve No 07/28/24 14:33 stimulator Patient instructed to have device shut off --Does patient have Pacemaker No 08/20/24 06:30 or ICD? When Was Last Pacemaker Check QUESTION #4 FULL TEXT: You/Your Family Experience fever (hyperthermia) with Anesthesia Last Oral Intake Last Oral intake: Last Oral Intake NPO since 04:30 08/20/24 06:30 Meds taken in AM with sips of water? Meds patient instructed to ensure 08/20/24 06:30 take am of surgery PONV PONV - tin can feeder: PONV - tin can feeder Female Yes 07/28/24 14:33 HX of Motion Sickness No 07/28/24 14:33 HX of N/V After Surgery No 07/28/24 14:33 Non-Smoker Yes 07/28/24 14:33 Duration of Surgery greater Yes 07/28/24 14:33 than 60 minutes Number of Risk Factors 3 07/28/24 14:33 PONV Score Moderate Risk 07/28/24 14:33 Height & Weight Height & Weight: Anesthesia: Height & Weight Height 5 ft 6 in 08/20/24 06:30 Weight: 74 kg 08/20/24 06:30 Body Mass Index (BMI) 26.3 08/20/24 06:30 Respiratory Assessment Respiratory Assessment - tin can feeder: Respiratory Tract Infection Hx - tin can feeder Hx Respiratory Tract Infection Yes: SAW PCP 07/28/24 07/28/24 14:33 STOP Sleep Apnea STOP Sleep Apnea - tin can feeder: STOP Sleep Apnea - tin can feeder Hx Hypertension No 07/28/24 14:33 Hx Sleep Apnea No 07/28/24 14:33 CPAP BIPAP Do you snore loudly (louder No 07/28/24 14:33 than talking or can be heard Do you often feel tired/ No 07/28/24 14:33 fatigued/ sleepy during daytime? Has anyone observed you stop No 07/28/24 14:33 breathing during sleep? STOP Results Negative 07/28/24 14:33 QUESTION #5 FULL TEXT : Do you snore loudly (louder than talking or can be heard through closed doors)? Tobacco Use History Tobacco Use History - tin can feeder: Tobacco Use History - tin can feeder Tobacco Use Smoking Status Former smoker 07/28/24 14:33 Hx Tobacco Use No 07/28/24 14:33 Years Smoking Packs Smoked per Day Smoking Cessation Date was No - quit smoking greater 07/28/24 14:33 within the last 15 years than 15 years ago Hx Smoking Cessation Date Hx Smoking Cessation Counseling Hematologic Medial History Hematologic Hx - tin can feeder: Hematologic Medical Hx - orthopedic nurse practitioner Hx of Blood Transfusion No 07/28/24 14:33 Hx of Transfusion in last 3 No 07/28/24 14:33 Months Date of Last Transfusion (if within last 3 months) Ever experience any problems No 07/28/24 14:33 with transfusion(s)? Specify any problems Hx of Preganancy in last 3 No 07/28/24 14:33 Months Nurse Filling Out Transfusion MGRIFFITH 07/28/24 14:33 & Questions: Date: 07/28/24 07/28/24 14:33 Time: 14:36 07/28/24 14:33 Patient unable to answer at this time (ie. confused, unrespo /Reproduction History /Reproductive History - tin can feeder: /Reproductive Hx- tin can feeder Hx Now Gestational Age (in weeks): EDC: Hx Hx Para Hx Section SAB Active Medications Active Medications: Current Medications Generic Name Dose Route Start Last Admin Trade Name Freq PRN Reason Stop Dose Admin Acetaminophen 1,000 mg 08/20/24 07:30 08/20/24 06:27 Acetaminophen 500 Mg Tablet PO 08/20/24 07:31 1,000 mg X1 ONE Administration Clindamycin Phosphate 900 mg in 50 mls @ 75 mls/hr 08/20/24 07:30 Cleocin IV 08/20/24 08:09 PREOP ONE Tranexamic Acid 1,000 mg/ 110 mls @ 440 mls/hr 08/20/24 07:30 Sodium Chloride IV 08/20/24 07:44 X1 ONE Tranexamic Acid 1,000 mg/ 110 mls @ 440 mls/hr 08/20/24 07:30 Sodium Chloride IV 08/20/24 07:44 X1 ONE Magnesium Sulfate 1 gm/ 102 mls @ 408 mls/hr 08/20/24 07:30 08/20/24 06:28 Dextrose IV 08/20/24 07:44 408 mls/hr X1 ONE Administration Sodium Chloride 1,000 mls @ 15 mls/hr 08/20/24 05:45 08/20/24 06:28 IV 08/25/24 19:04 15 mls/hr .Q48H JESS Administration Protocol Insulin Human Lispro 1 - 6 unit 08/20/24 07:30 Insulin Lispro 100 Unit/Ml Insuln.Pen SC Q4H PRN PRN BG>/= 180, SEE PROTOCOL Protocol PFSH Medical History Wears glasses Alcohol use Psoriatic arthritis Gastric reflux Former smoker Arthritis Home Medications ?Medication ?Instructions ?Recorded ?Last Taken ?Type leflunomide 20 mg tablet 20 mg PO DAILY PSORIATIC ART HRITIS 06/24/22 08/19/24 History guselkumab 100 mg/mL subcutaneous 100 mg subcut Q8W PS ORIATIC 12/27/22 07/09/24 History syringe (Tremfya) ARTHRITIS phentermine 37.5 mg tablet 37.5 mg PO QAM WEIGHT LOSS 04/03/24 08/18/24 History spironolactone 50 mg tablet 50 mg PO QDAY WATER RETENT ION 04/03/24 08/19/24 History duloxetine 30 mg capsule,delayed 30 mg PO DAILY USES F OR BACK 07/08/24 08/19/24 History release cholecalciferol (vitamin D3) 25 25 mcg PO QDAY supplem ent 08/15/24 08/19/24 History mcg (1,000 unit) capsule Allergy/AdvReac Type Severity Reaction Status Date / Time cefdinir Allergy Nausea Verified 08/20/24 06:03 Penicillins (PCN) Allergy Other Verified 08/20/24 06:03 Surgical History History of colonoscopy H/O: hysterectomy Social History Smoking Status: Never smoker alcohol intake: current what type of physical activity do you participate in: other details: golf Review of Systems (Anesthesia) ROS Narrative System reviewed and no additional complaints, except as documented. Physical Exam Const alert and oriented x3 HEENT dentition normal Resp normal respiratory effort Cardio Cardio Narrative: slightly tachycardic, anxious Neuro oriented x3 and moves all extremities
--- NOTE | 2024-08-20 07:14 | PCM.HP.BLA ---
History and Physical Date of Admission: 08/20/24 MR#: [id number] Acct: [id number] Name: CHANG KIDD Rep #: [id number] : 1955 Provider: Dr. Juan David Styles MD Age/Sex: 68/F Location: [facility] [email or web address] Status: Signed Intake Vital Signs 04/03/2408:31 Height 5 ft 5 in Intake Visit Reasons: LUMBAR SPINE Chief Complaint: Pre op Allergies cefdinir Allergy (Verified 08/15/24 13:49) NauseaPenicillins (PCN) Allergy (Verified 08/15/24 13:49) Other Medications ?Medication ?Instructions ?Recorded ?Confirmed ?Type leflunomide 20 mg tablet 20 mg PO DAILY PSORIATIC ARTHRITIS 06/24/22 08/15/24 History guselkumab 100 mg/mL subcutaneous 100 mg subcut Q8W PSORIATIC 12/27/22 08/15/24 History syringe (Tremfya) ARTHRITIS phentermine 37.5 mg tablet 37.5 mg PO QAM WEIGHT LOSS 04/03/24 08/15/24 History spironolactone 50 mg tablet 50 mg PO QDAY WATER RETENTION 04/03/24 08/15/24 History duloxetine 30 mg capsule,delayed 30 mg PO DAILY USES FOR BACK 07/08/24 08/15/24 History release cholecalciferol (vitamin D3) 25 25 mcg PO QDAY 08/15/24 08/15/24 History mcg (1,000 unit) capsule Have you fallen in the past year?: No PFSH Medical History Wears glasses Alcohol use Psoriatic arthritis Gastric reflux Former smoker Arthritis Surgical History History of colonoscopy H/O: hysterectomy Social History Smoking Status: Former smoker alcohol intake: current what type of physical activity do you participate in: other details: golf HPI LUMBAR SPINE Details: This documentation accurately reflects the service provided and the decisions made by me, Dr. Juan David Styles MD 08/15/24 1773. Part of today?s visit was documented by Izabela Johnson RN, acting as scribe. CHANG KIDD is a 68 year old F here today for preop appointment for scheduled 360 lumbar fusion L4-L5 on 08-20-2024. She states for the past 3-4 days her pain has gotten worse. She does have increased tightness in her legs as well. Her pain does seem to get better throughout the day. She does take Tylenol for the pain as well. 07/08/24: CHANG KIDD is a 68 year old F here today for continued low back pain. She had seen Et[facility] and was seeing pain management for injections but states that the injections are no longer helping. She states that her first injection helped her for 2 weeks then after that none of the injections helped after that. She has had a total of [address] Barksdale but he did put her on Cymbalta that she started on 07/03/24 for the pain which sometimes helps. Her last injection with Dr. Barksdale was on 06/04/24 and she had a Caudal MARCUS but this didn't help her. She would like to discuss surgery today and see id that is an option for her. 04/03/24: CHANG KIDD is a 68 year old F here today for Lumbar pain. Patient states her back has bothered her for about 6-8 months but worse with in the last couple months. Patient denies any injury to her back. Patient pain in center of the lower back. Patient has pain that does go down her legs but mostly the left leg. This pain is located over her left anterior tibialis and at times to her calf. He has not had to use an ambulatory devices after the fall. Patient does have numbness and tingling that goes down her legs and mostly left. Patient just is currently doing PT tomorrow is her last session. Patient has never had injections in her back. Patient is taking Prednisone pain and Advil and Mobic. She has been taking 50mg prednisone cut into fourths so approximately 12.5mg, prescribed to her for the last 2 months. Says that she relies on this prednisone to help her pain to make it bearable for the day. Patient states ice and heat does help the back. Patient thinks heat works better. Ortho Exam General General: Yes no acute distress Neurologic: Yes alert and Yes oriented x3 Spine SPINE TESTING CERVICAL THORACIC LUMBAR Musculoskeletal Strength 0=absent - 5=normal Details: Neurological exam of the lower extremities shows 4 power with plantar flexion of the left foot and 5 power in all other muscles. Normal sensations across all dermatomes. No hyperreflexia. No midline or paraspinal tenderness. Romberg's negative. Passive straight leg raise negative. Coding Level of Care Code Off vis,est,level 4 Diagnoses Spinal stenosis of lumbar region with neurogenic claudication M48.062 Spondylolisthesis, lumbar region M43.16 Other secondary scoliosis, lumbar region M41.56 Scoliosis type: other secondary scoliosis Time Spent (min) 35 Assessment and Plan Assessment and Plan (1) Spinal stenosis of lumbar region with neurogenic claudication: Status: Acute (2) Spondylolisthesis, lumbar region: Status: Acute (3) Lumbar scoliosis: Status: Acute Qualifiers: Scoliosis type: other secondary scoliosis Qualified Code(s): M41.56 - Other secondary scoliosis, lumbar region Plan Again reviewed x-rays and MRI of the lumbar spine again today with the patient. These show L4-5 grade 1 spondylolisthesis along with lateral listhesis and degenerative lumbar scoliosis with concavity to the left. L4-5 shows severe central, bilateral lateral recess and left foraminal stenosis. L5-S1 shows right mild foraminal stenosis. L4-5 shows large left facet synovial cyst. Explained to her imaging findings in detail. Patient has developed severe neurogenic claudication as well as pain which radiates down to left worse than right lower extremities. Explained to her treatment options which include continued nonoperative treat measures versus surgery. She has undergone 2 epidural injections which did not seem to help. Her function seems to continue to decline with time. She wishes to proceed with surgical intervention. L4-5 anterior posterior fusion with indirect decompression was discussed in detail. Risk benefits and alternatives were discussed. The risks include but are not limited to infection, bleeding, injury to nerves and vessels, need for further surgery, visceral injury, vascular injury, ileus, pseudoarthrosis, hardware failure, persistent pain, persistent weakness and numbness, nerve root injury, foot drop, DVT, pulmonary embolism, pneumonia, atelectasis, cardiopulmonary event. Patient understands and agrees to proceed with surgery. Consent was signed.
[2024-08-20] MEDS: Clindamycin 900 MG/50 ML BAG 75 MG IV ×3 (07:36→23:16)
--- NOTE | 2024-08-20 07:46 | RAD_ITS ---
PROCEDURE: SPINE 1 VIEW ANY LEVEL REASON FOR EXAM: Fusion at L4-L5. TECHNIQUE: Intraoperative views of the lumbar spine were obtained. COMPARISON: None. FINDINGS: A total of 8 images were recorded. Total fluoroscopy time is 77 0.8 seconds. Dose is 34.96 mGy. The imaged show intraoperative localization. On the 1st image, the forceps point to the L4-L5 disc space. The final images show transpedicular screws at L4 and L5 with vertical interlocking rods, a additional screw in the lower aspect of the L4 region, and interbody graft at L4-L5. RAD/Spine 1 View Any Level IMPRESSION: INTRAOPERATIVE FILMS FOR LOCALIZATION. Reading Location: [facility]
[2024-08-20] MEDS: TRANEXAMIC ACID 1,000 MG in 0.9% Normal Saline (100mL Bag) 100 ML 440 MG IV ×2 (07:48→10:21)
[2024-08-20] MEDS: Ropivacaine 0.5% 30 ML Vial (10:42)
--- NOTE | 2024-08-20 10:46 | PCM.OPRPT ---
Procedures Musculoskeletal [id number]: Other Procedure See Report Operative Report (Standard) Operative Information Date of Procedure: 08/20/24 Pre-Operative Diagnosis: L4-5 spondylolisthesis, stenosis with neurogenic claudication Post-Operative Diagnosis: Same Surgery/Procedure Performed: L4-5 oblique lumbar interbody fusion hosiery looper: Yes Saw Filer: jorge a Tasks completed by airline pilot/first officer: Closing, Hemostasis: Electrocautery and Retracting Type of Anesthesia: General RN Documented Start/Stop Times: Operation Date: 08/20/24 07:30 Case Time Into Pre-Op 08/20/24 05:36 Out of Pre-Op 08/20/24 07:32 Anesthesia Start 08/20/24 07:35 Into Room 08/20/24 07:35 Procedure Start 08/20/24 08:11 Procedure End 08/20/24 10:43 Procedure Start Time: 08:11 Procedure Stop Time: 10:43 Select all DRAINS/GRAFTS/IMPLANTS that apply: Graft Graft details: Allograft cancellous bone chips, autologous bone marrow aspirate and Implanted device Implanted device details: DePuy cougar lateral lumbar interbody cage?peek Estimated Blood Loss: 100 cc Specimen collected: No Description of surgery: Preoperative diagnosis: L4-5 spondylolisthesis, stenosis with neurogenic claudication, facet synovial cyst Postoperative diagnosis: Same Name of procedures L4-5 oblique lumbar interbody fusion (OLIF), minimally invasive left sided approach, lateral decubitus: ? L4-5 anterolateral spinal fusion 21803 ? L4-5 insertion of cage [id number] ? Bone graft aspirate left iliac crest separate incision ? Allograft cancellous chips Attending Surgeon: Dr. Juan David Styles Estimated blood loss: 100 mL Anesthesia: General Complications: None Indications: Patient is a 68-year-old pleasant lady who has had a long history of low back pain and left worse than right lower extremity radiation, difficulty walking distances. Xrays & MRI revealed L4-5 spondylolisthesis with stenosis with facet synovial cyst. All surgical options were discussed with the patient including anterior and posterior approaches. All risks and benefits associated with the procedure were explained to the patient. The risks include but are not limited to infection, bleeding, injury to nerves and vessels including major vessels like IVC and aorta, persistent paresthesia, persistent pain, dural tear, need for further procedures, adjacent segment degeneration, pseudoarthrosis, hardware failure, retrograde ejaculation, paralytic ileus, etc. Procedure: The patient was identified in the preoperative holding suite using Unique patient identifiers. Skin was marked, consent was reviewed, and all questions were answered. The patient was then brought back to the operative room. A surgical timeout was performed to make sure correct procedure was being done on the correct patient and all operative room staff were on the same page. General endotracheal anesthesia was then given to the patient. Diaz catheter was inserted. The patient was then carefully positioned in right lateral decubitus position with the left side up on a regular OR table. Axillary roll was placed and all bony prominences were well- padded. Hip positioners were placed in the posterior buttocks and anterior sternal area. The surgical area was prepped and draped in usual fashion. Preoperative antibiotic was injected IV as preoperative antibiotic. A final timeout was then again done just before starting the procedure. A 2 inch incision oblique was taken in the left lower quadrant of the abdomen 2 fingerbreadths away from the iliac crest and the lower ribs. Sharp dissection with Bovie was carried out up to the fascia covering the external oblique. The external oblique, internal oblique and transversus abdominis muscles were split along the muscle fibers and retroperitoneal space was entered. Sponge sticks were utilized to move the bowel and peritoneum [id number] and psoas muscle was exposed staying within the retroperitoneal plane. [employer] Systems[employer] retractor system was positioned and the retractor blade was applied onto the psoas. The interval between psoas and midline structures was developed and appropriate retractors were placed. Once adequate interval was cleared, a disc space was identified and a marker x-ray was taken. This identified the L4-5 disc level. Annulotomy was done with a long handled knife. Pituitary was used to remove disc material. Curettes were used to prepare the endplates. Disc space spreaders were utilized to distract and increase the disc height. Near complete discectomy was performed. Smaller disc distractors were also used to bluntly perform a contralateral annulotomy. Trials of serially increasing sizes were used. A Jamshidi needle was used to aspirate bone marrow from the left anterior iliac crest through a separate incision and this aspirate was mixed with the allograft bone chips. A Depuy [place] cage of size of the 18 x 50 x 12 mm with 15 degrees lordosis was packed with corticocancellous allograft bone chips mixed with bone marrow aspirate. This was inserted into the L4-5 disc space. Some bone chips were also packed around the cages. Screw with washer was placed into the lower L4 body with a washer partially covering the cage at L4-5. Hemostasis was confirmed. The retractor blades were removed. Closure was done in layers with a continuous strand of # 1 Vicryl in all muscle layers. 2-0 Vicryl was used for subcutaneous tissue and 4-0 for Monocryl for the skin. Steri-Strips were applied and 4 x 4 gauze and Tegaderm were applied. Surgical Findings: See operative note Complications Complications: No
--- NOTE | 2024-08-20 10:52 | PCM.OPRPT ---
Procedures Musculoskeletal 20xxx-29xxx: Other Procedure See Report Operative Report (Standard) Operative Information Date of Procedure: 08/20/24 Pre-Operative Diagnosis: L4-5 spondylolisthesis, stenosis with neurogenic claudication Post-Operative Diagnosis: Same Surgery/Procedure Performed: L4-5 posterior spinal instrumented fusion foot gatherer: Yes Transportation Maintenance Worker: jorge a Tasks completed by first grade teacher: Closing, Hemostasis: Electrocautery and Retracting Type of Anesthesia: General RN Documented Start/Stop Times: Operation Date: 08/20/24 07:30 Case Time Into Pre-Op 08/20/24 05:36 Out of Pre-Op 08/20/24 07:32 Anesthesia Start 08/20/24 07:35 Into Room 08/20/24 07:35 Procedure Start 08/20/24 08:11 Procedure End 08/20/24 10:43 Procedure Start Time: 08:11 Procedure Stop Time: 10:43 Select all DRAINS/GRAFTS/IMPLANTS that apply: Graft Graft details: Allograft cancellous bone chips and Implanted device Implanted device details: DePuy Viper prime pedicle screw instrumentation Estimated Blood Loss: 100 cc Specimen collected: No Description of surgery: Preoperative diagnosis: L4-5 spondylolisthesis, stenosis with neurogenic claudication Postoperative diagnosis: Same Name of procedures: L4-5 posterior percutaneous pedicle screw instrumented fusion, prone: ? L4-5 posterior spinal fusion 27975 ? L4-5 posterior pedicle screw instrumentation 41793 ? Allograft cancellous chips [id number] Attending Surgeon: Dr. Juan David Styles Estimated blood loss: 100 mL (total for entire case) Anesthesia: General Complications: None Description of procedure: After the anterior procedure was complete, the patient was then turned supine. The patient was then transferred to [place] table in prone position. Back was prepped and draped in usual fashion. C-arm AP view was then taken. C-arm was positioned in a way that L4 was centralized and superior endplate of was parallel to the beam. Spinous process was centered between the pedicles. Midline was marked with skin marker and lateral borders of the pedicles were also marked. Skin marker was also utilized to torey transversely across the middle of the pedicles at L4. 2 longitudinal paramedian incisions of 1 inch were placed. The fascia was incised vertically. Finger dissection was utilized to palpate the transverse process and facet joint. Viper Prime screws with towers were inserted and docked onto the transverse processes. This was then slowly moved medially to reach the superior articular process of L4. This was then confirmed on C-arm and then a mallet was utilized to drive the trocar into the pedicle going up to the medial wall of the pedicle on AP view. This was performed both sides. C-arm lateral view confirmed that the tip of the trocar was in the vertebral body, and the screw was advanced into the pedicle and vertebral body. This was repeated similarly at L5 bilaterally. Screw sizes were 7 x 50 mm at L4 and L5 on both sides. 45 mm precontoured titanium 5.5 mm lordotic kelsy on the right and 50 mm on the left were then passed through the screw extensions and reduced down to the screws with the help of mangofizz jobser instrumentation system on both sides. AP and lateral view of the C-arm showed good positioning of the screws and cages. Final tightening with the torque screwdriver was then completed. Vanessa was utilized to roughen the facet joint at L4-5 on the right side. Cancellous allograft bone chips mixed with bone marrow aspirate were then placed over this decorticated area. Hemostasis was achieved. Closure was done in layers with 0 Vicryls for the fascia, 2-0 Vicryls for the subcutaneous tissue, and Monocryl for the skin. Dermabond was applied. Dressings were applied covered with Tegaderm. The patient was then turned supine onto a hospital bed. The patient was extubated and taken to PACU in stable condition. The patient tolerated the procedure well and no complications occurred. Depuy Wilsons cage & Viper Prime minimally invasive pedicle screw instrumentation system was utilized in this case. No dural tear was identified intraoperatively. I was present for the entirety of the case and performed the surgery. Surgical Findings: See operative note Complications Complications: No
--- NOTE | 2024-08-20 11:00 | PCM.POST.ANE ---
Anesthesia: Postop Eval I Current Vital Signs Temperature: 97.1 F Pulse Rate: 84 Blood Pressure: 128/87 Respiratory Rate: 16 Pulse Ox: 100 Oxygen Delivery Method: Simple Mask Oxygen Flow Rate (L/min): 6 Assessment Airway patent: Yes Spontaneous unlabored respirations: Yes Mental status: Awake and Calm nausea: No Vomiting: No Anesthesia Complication: No Fluid Hydration Crystalloid volume administer (ml): 1,600 Total IV fluid infused: 1,600 Progress Note Anesthesia document: Postop Eval 1 completed: Yes
--- NOTE | 2024-08-20 13:09 | PCM.PN.HOSP ---
Reason for Visit Reason for Visit: Diagnoses Encounter for other preprocedural examination (08/20/24) Subjective Subjective Consult requested by Dr. Styles for post-operative medical mgmt. Pt groggy post op. Objective Data Objective Data Vital Signs: Vital Signs Temp Pulse Resp BP Pulse Ox O2 Del Method O2 Flow Rate 36.1 C L 89 16 119/77 98 Nasal Cannula 4 08/20/24 12:30 08/20/24 12:30 08/20/24 12:30 08/20/24 12:30 08/20/24 12:30 08/20/24 12:30 08/20/24 12:30 FiO2 4 08/20/24 11:30 Oxygen Flow Rate (L/min) 4 Oxygen Delivery Method Nasal Cannula Weight: 74 kg Body Mass Index (BMI) 26.3 Intake & Output: Intake and Output for Last 24 Hours 08/18/24 08/19/24 08/20/24 23:59 23:59 23:59 Intake Total 1372 / 1372 Output Total 300 / 300 Balance 1072 / 1072 Lab / Micro Data 07/29/24 13:08 07/29/24 13:08 Labs: Laboratory Results - last 24 hr 08/20/24 06:21: Blood Type B POSITIVE, Antibody Screen NEGATIVE 08/20/24 06:25: POC Glucose 105 Micro: Microbiology 07/29/24 13:08 Swab (Method) Nasal Screen MRSA/MSSA - Final Physical Exam Const Constitutional Narrative: groggy. follows commands. HEENT head/scalp atraumatic and moist oral mucous membranes Resp normal respiratory effort, no retractions, no use of accessory muscles and clear to auscultation bilaterally Cardio regular rate, regular rhythm, S1 normal heart sound and S2 normal heart sound GI normal to inspection, nondistended, normoactive bowel sounds, soft to palpation, non-tender and non-distended Extremity normal to inspection Neuro Sensorium / Orientation: awake and alert Assessment & Plan Assessment/Plan (1) Spinal stenosis of lumbar region with neurogenic claudication: PLAN: Plan Psoriatic arthritis: resume leflunomide and guselkumab when ok with primary service S/p L4-5 posterior spinal instrumented fusion. mgmt per primary service VTE prophylaxis: per primary service The hospitalist service will be available for any acute medical issues that may arise. Charges/Coding Visit Charges Inpatient E&M: 13180 Subs Hosp L2
[2024-08-20] MEDS: Methocarbamol 500 MG Tablet 1000 MG PO ×3 (14:33→19:57)
--- NOTE | 2024-08-20 15:26 | POSTOPAN2_ITS ---
Anesthesia Postop Eval I Sum Postop Eval Completion status Anesthesia document: Postop Eval 1 completed: Yes Anesthesia Postop Eval I Summary Anesthesia Postop Eval I Summary: Anesthesia Postop Eval I: Assessment Summary Airway patent Yes 08/20/24 11:01 TIMBER [email or web address].[email or web address] Spontaneous unlabored Yes 08/20/24 11:01 TIMBER INSPECTOR.ISIAH respirations Mental status Awake,Calm 08/20/24 11:01 TIMBER INSPECTOR.ISIAH nausea No 08/20/24 11:01 TIMBER INSPECTOR.ISIAH Vomiting No 08/20/24 11:01 TIMBER INSPECTOR.ISIAH Anesthesia Postop Eval I: Fluid Summary Crystalloid volume administer 1,600 08/20/24 11:01 TIMBER INSPECTOR.[email or web address] (ml) Colloids volume administered ( ml) Blood Product volume administered (ml) Total IV fluid infused 1,600 08/20/24 11:01 TIMBER INSPECTOR.ISIAH Anesthesia Postop Eval I: Summary Notes Anesthesia Complication No 08/20/24 11:01 TIMBER INSPECTOR.ISIAH Anesthesia Complication Comment: Post-operative progress note Anesthesia: Postop Eval II Evaluation Mental status: Awake and Calm Pain Level: 5 nausea: No Vomiting: No Complications Anesthesia Complication: No
--- NOTE | 2024-08-20 15:26 | PCM.POSTANE2 ---
Anesthesia Postop Eval I Sum Postop Eval Completion status Anesthesia document: Postop Eval 1 completed: Yes Anesthesia Postop Eval I Summary Anesthesia Postop Eval I Summary: Anesthesia Postop Eval I: Assessment Summary Airway patent Yes 08/20/24 11:01 FORKLIFT TRUCK OPERATOR.[email or web address] Spontaneous unlabored Yes 08/20/24 11:01 FORKLIFT TRUCK OPERATOR.ISIAH respirations Mental status Awake,Calm 08/20/24 11:01 FORKLIFT TRUCK OPERATOR.ISIAH nausea No 08/20/24 11:01 FORKLIFT TRUCK OPERATOR.ISIAH Vomiting No 08/20/24 11:01 FORKLIFT TRUCK OPERATOR.ISIAH Anesthesia Postop Eval I: Fluid Summary Crystalloid volume administer 1,600 08/20/24 11:01 FORKLIFT TRUCK OPERATOR.KENNETHOBY (ml) Colloids volume administered ( ml) Blood Product volume administered (ml) Total IV fluid infused 1,600 08/20/24 11:01 FORKLIFT TRUCK OPERATOR.ISIAH Anesthesia Postop Eval I: Summary Notes Anesthesia Complication No 08/20/24 11:01 FORKLIFT TRUCK OPERATOR.ISIAH Anesthesia Complication Comment: Post-operative progress note Anesthesia: Postop Eval II Evaluation Mental status: Awake and Calm Pain Level: 5 nausea: No Vomiting: No Complications Anesthesia Complication: No
[2024-08-20] MEDS: Ketorolac 15 MG/ML Vial IV (16:22)
[2024-08-20] MEDS: Senna/Docusate Sodium 1 Tablet 2 TABLET PO (19:57)
[2024-08-21] MEDS: Ketorolac 15 MG/ML Vial IV (00:53)
[2024-08-21] MEDS: 0.9% Saline Lock 10 ML Syringe IV (00:54)
[2024-08-21 02:35] VITALS: BP 115/70; PULSE 81; RESP 16; TEMP 36.6; O2SAT 98
[2024-08-21] MEDS: Acetaminophen 500 MG Tablet 1000 MG PO ×2 (05:55→13:33)
--- NOTE | 2024-08-21 05:55 | RAD_ITS ---
PROCEDURE: LUMBAR SPINE 2 OR 3 VIEWS REASON FOR EXAM: Status post lumbar fusion. TECHNIQUE: 2 view(s) of the lumbar spine COMPARISON: Imaging from the OR dated 08/20/2024 at 10:22 a.m. FINDINGS: Status post L4-L5 posterior lumbar fusion with intervertebral body spacer at L4-5. There is normal lumbar lordosis. Vertebral heights are otherwise well- maintained. No definite acute fracture or dislocation is present. Bowel gas pattern is unremarkable. RAD/Lumbar Spine 2 or 3 Views IMPRESSION: Postsurgical changes as described above. Reading Location: [id number]
[2024-08-21] MEDS: Ondansetron 4 MG/2 ML Vial IV (05:56)
[2024-08-21] MEDS: Spironolactone 50 MG Tablet PO (06:01)
[2024-08-21] MEDS: Cholecalciferol (VIT D3) 25 MCG TABLET (1,000 UNITS) PO (06:02)
[2024-08-21] MEDS: DULoxetine Hcl 30 MG Capsule PO (06:02)
[2024-08-21 06:08] VITALS: BP 110/68; PULSE 78; RESP 16; TEMP 36.6; O2SAT 98
[2024-08-21 07:04] LABS: Hematocrit 34.9 % (37-47); Hemoglobin 11.3 g/dL (12.0-15.0); Mean Corp Hgb Conc 32.4 g/dL (32-36); Mean Corpuscular Hgb 31.9 pg (27.0-32.0); Mean Corpuscular Volume 98.6 fL (81-99); Mean Platelet Vol. 11.1 fl (6.2-12.0); Platelet Count 274 K/mm3 (150-450); RBC Distribution Width CV 13.2 % (11.6-14.6); RBC Distribution Width SD 48.3 fl (35.1-43.9); Red Blood Count 3.54 M/mm3 (4.2-5.4); White Blood Count 12.9 K/mm3 (4.4-11.0)
[2024-08-21 07:36] LABS: Anion Gap 11 (5-15); BUN 15 mg/dL (4-19); BUN/Creat Ratio 25.4 RATIO (10-20); Calcium 8.9 mg/dL (7.6-11.0); Carbon Dioxide 22.6 mmol/L (22.0-29.0); Chloride 101 mmol/L (96-108); Creatinine, Serum 0.6 mg/dL (0.6-1.0); EST Glomerular Filtration Rate 99 (>60); Estimated Creatinine Clearance 70.22 ml/min; Glucose 148 mg/dL (70-99); Potassium 3.9 mmol/L (3.3-5.1); Sodium Level 135 mmol/L (133-145)
[2024-08-21] MEDS: Senna/Docusate Sodium 1 Tablet 2 TABLET PO (09:31)
[2024-08-21] MEDS: Methocarbamol 500 MG Tablet 1000 MG PO ×2 (09:31→13:34)
[2024-08-21 10:02] VITALS: O2SAT 96
[2024-08-21 10:05] VITALS: BP 150/85; PULSE 84; RESP 16; TEMP 36.6; O2SAT 100
[2024-08-21] MEDS: Ensure Surgery 237 ML LIQUID PO ×2 (10:16→11:49)
--- NOTE | 2024-08-21 10:20 | CASEMGMT ---
KARY HARRINGTON Assessment: Face to Face with pt for initial transition planning/care coordination assessment. KARY HARRINGTON introduced self and role at [facility], pt voices understanding and consents to assessment. Pt is A&O x4 and answers all questions appropriately at this time. Pt sitting up in chair in no distress. Care providers, pharmacy, and demographics verified/updated. Admitting Dx: lumbar fusion Strata Score: 1 PCP:[facility] Specialists:logan Styles; rheum- [facility]- pt could not recall name Preferred [facility]acy: [facility] Supp Prescription Benefit: yes LNOK: Toyin Salazar dtr Living Arrangements: Pt lives alone in a single story home with 3 steps to enter with a rail. Pt reports prior to surgery pt was I in ADLs/IADLs. Pt reports family and friends are available to stay and help her as needed. Pt denies concerns at home. Transportation: Pt drives self and denies concerns with transportation. Family and friends will transport pt until she can drive again. DME:WW, cane, shower chair, toilet handles HHC/SNF: Denies hx of Pt states no concerns with going home at time of dc. Pt states therapy went well and she feels comfortable with her help at home. Pt states no further concerns/needs. CM to follow. Advised pt to ask CM if any further questions/concerns/needs arise, voices understanding. Pt Goal: Home Plan: Home Hal PRESTON CM
[2024-08-21] MEDS: Meloxicam 15 MG Tablet PO (11:49)
--- NOTE | 2024-08-21 11:50 | PN.HOSP_ITS ---
Subjective Subjective Doing well, no issues overnight. Pain is controlled Objective Data Objective Data Vital Signs: Vital Signs Temp Pulse Resp BP Pulse Ox O2 Del Method O2 Flow Rate 98 F 84 16 150/85 H 100 Room Air 4 08/21/24 10:05 08/21/24 10:05 08/21/24 10:05 08/21/24 10:05 08/21/24 10:05 08/21/24 10:06 08/20/24 12:30 FiO2 4 08/20/24 11:30 Oxygen Flow Rate (L/min) 4 Oxygen Delivery Method Room Air Weight: 163 lb 2.273 oz Body Mass Index (BMI) 26.3 Intake & Output: Intake and Output for Last 24 Hours 08/20/24 08/21/24 08/22/24 03:59 03:59 03:59 Intake Total 2213.75 / 2213.75 426 / 426 Output Total 300 / 300 Balance 1913.75 / 1913.75 426 / 426 Lab / Micro Data 08/21/24 06:38 08/21/24 06:38 Labs: Laboratory Results - last 24 hr 08/21/24 06:38: WBC 12.9 H, RBC 3.54 L, Hgb 11.3 L, Hct 34.9 L, MCV 98.6, MCH 31.9, MCHC 32.4, RDW Std Deviation 48.3 H, RDW Coeff of Yady 13.2, Plt Count 274, MPV 11.1, Sodium 135, Potassium 3.9, Chloride Direct 101, Carbon Dioxide 22.6, Anion Gap 11, BUN 15, Creatinine 0.6, Estim Creat Clear Calc 70.22, Est GFR (MDRD) Non-Af 99, BUN/Creatinine Ratio 25.4 H, Glucose 148 H, Calcium 8.9 Micro: Microbiology 07/29/24 13:08 Swab (Method) Nasal Screen MRSA/MSSA - Final Radiography Diagnostic Testing: Radiology Impression Spine X-Ray 08/20/24 07:46 IMPRESSION: INTRAOPERATIVE FILMS FOR LOCALIZATION. Reading Location: [facility] Lumbar Spine X-Ray 08/21/24 05:55 IMPRESSION: Postsurgical changes as described above. Reading Location: [facility] Physical Exam Narrative General: Alert, Oriented x3, Cooperative, No apparent distress HEENT: Atraumatic, PERRLA, EOMI, Normocephalic Oral: Moist Mucosa Neck: Supple, No JVD Lungs: Clear to auscultation, Normal air movement, No rhonchi, No wheeze, No rales Cardiovascular: Regular rate, Regular Rhythm, Normal S1, Normal S2, No murmurs Abdomen: Soft, Non Tender, Non-Distended, No Hepato-splenomegaly Extremities: No edema, Capillary Refill Less than 3 Seconds Skin: Dressing CDI Musculoskeletal: No Tenderness to Palpation of Joints or Extremities Neurological: No focal neurological deficits, Motor Exam 5/5 strength throughout, Sensory exam intact to light touch and pain Psych/Mental Status: Normal Affect, Appropriate Assessment & Plan Assessment/Plan (1) Spinal stenosis of lumbar region with neurogenic claudication: PLAN: Plan 1. Status post L4-5 posterior fusion on 225 ? Pain management per primary ? PT/OT ? Appears stable for discharge ? Appears that she uses Cymbalta for chronic back pain, can continue 2. Psoriatic arthritis ? Okay to resume home medications on discharge if okay with primary service DVT: Per primary Will sign off, call with questions Charges/Coding Visit Charges Inpatient E&M: 11530 Subs Hosp L2
--- NOTE | 2024-08-21 12:50 | PCM.PN.ORT ---
Subjective Subjective Postop day 1 status post L4-5 fusion. Patient's pain is well-controlled. Passed flatus, tolerated solid diet. Worked with PT and ambulated. Objective Data Objective Data Vital Signs: Vital Signs Temp Pulse Resp BP Pulse Ox O2 Del Method O2 Flow Rate 98 F 84 16 150/85 H 100 Room Air 4 08/21/24 10:05 08/21/24 10:05 08/21/24 10:05 08/21/24 10:05 08/21/24 10:05 08/21/24 10:06 08/20/24 12:30 FiO2 4 08/20/24 11:30 Oxygen Flow Rate (L/min) 4 Oxygen Delivery Method Room Air Weight: 163 lb 2.273 oz Body Mass Index (BMI) 26.3 Intake & Output: Intake and Output for Last 24 Hours 08/19/24 08/20/24 08/21/24 23:59 23:59 23:59 Intake Total 1913.75 / 2163.75 726 / 726 Output Total 300 / 300 Balance 1613.75 / 1863.75 726 / 726 Lab / Micro Data 08/21/24 06:38 08/21/24 06:38 Labs: Laboratory Results - last 24 hr 08/21/24 06:38: WBC 12.9 H, RBC 3.54 L, Hgb 11.3 L, Hct 34.9 L, MCV 98.6, MCH 31.9, MCHC 32.4, RDW Std Deviation 48.3 H, RDW Coeff of Yady 13.2, Plt Count 274, MPV 11.1, Sodium 135, Potassium 3.9, Chloride Direct 101, Carbon Dioxide 22.6, Anion Gap 11, BUN 15, Creatinine 0.6, Estim Creat Clear Calc 70.22, Est GFR (MDRD) Non-Af 99, BUN/Creatinine Ratio 25.4 H, Glucose 148 H, Calcium 8.9 Micro: Microbiology 07/29/24 13:08 Swab (Method) Nasal Screen MRSA/MSSA - Final Radiography Diagnostic Testing: Radiology Impression Spine X-Ray 08/20/24 07:46 IMPRESSION: INTRAOPERATIVE FILMS FOR LOCALIZATION. Reading Location: [id number] Lumbar Spine X-Ray 08/21/24 05:55 IMPRESSION: Postsurgical changes as described above. Reading Location: [id number] Physical Exam Narrative Dressing?CDI. Neurologic evaluation of lower extremity shows 5 x 5 power in all muscles Assessment & Plan Assessment/Plan (1) S/P lumbar fusion: PLAN: Plan Postop day 1 status post L4-5 fusion. Passed flatus, tolerated solid diet. Cleared by PT OT. X-rays reviewed. Follow-up in clinic in 2 weeks. Okay to be discharged.
[2024-08-21 13:45] VITALS: BP 141/90; PULSE 88; RESP 16; TEMP 36.6; O2SAT 100
== END 2024-08-21 14:03 | disposition home or self-care (01) | DRG 458 ==
PROVIDERS: Anesthesiology; Admitting Provider Orthopaedic Surgery Orthopaedic Surgery of the Spine; PCP Family Medicine; Referring Provider Orthopaedic Surgery Orthopaedic Surgery of the Spine; Visit Provider Orthopaedic Surgery Orthopaedic Surgery of the Spine
PROC: 0SG03AJ Fusion of Lumbar Vertebral Joint with Interbody Fusion Device, Posterior Approach, Anterior Column, Percutaneous Approach (ICD-10-PCS; principal; 2024-08-20 07:00)
DX: M48.062 Spinal stenosis, lumbar region with neurogenic claudication (principal); M41.56 Other secondary scoliosis, lumbar region; K21.9 Gastro-esophageal reflux disease without esophagitis; M43.16 Spondylolisthesis, lumbar region; M48.07 Spinal stenosis, lumbosacral region; M13.89 Other specified arthritis, multiple sites; Z90.710 Acquired absence of both cervix and uterus; Z79.52 Long term (current) use of systemic steroids; Z87.891 Personal history of nicotine dependence; Z79.899 Other long term (current) drug therapy
CPT/HCPCS: 36415; 72020; 72100; 76000; 80048; 82962; 83735; 85025; 85027; 86703; 86706; 86708; 86803; 86850; 86900; 86901; 87081; 93005; 94668; 97162; 97530; C1713; A4216; J2405; J3475

== ENCOUNTER 2024-09-29 10:30 | Outpatient (RCR) | payer MEDICARE, OTHER, SELFPAY ==
--- NOTE | 2024-09-03 16:32 | HP.PTEVAL ---
Patient's Visit Information Visit Information Visit Information: CHANG KIDD is a 69 year old F referred to Physical Therapy by SABINO Sin with a diagnosis of S/P ARTHRODESIS. Date of Evaluation: 09/03/24 Physical Therapist: Micha Solomon, PT, Cert MDT, OCS Visit Plan Frequency: 2x /Week Duration: 4 Weeks Plan: S/P LUMBAR FUSION L4-5 oblique lumbar interbody fusion on 08/20/24 NO BLT ,AND LIFTING RESTRICTION UP TO 10 # NEXT 2 WEEKS PT INTERVENTIONS DLS ,POSTURAL EX'S ,LE STRENGTHENING ,ACTIVITY MODIFICATION AND POSTURE/BODY MECHANICS TRAINING Subjective Subjective: This 69 y/o male presents to physical therapy with s/p lumbar fusion L4-5 oblique lumbar interbody fusion on 08/20/24 at [facility] by DR Styles. Patient d/c next day . No bending/lifting /twisting. Patient was d/c with bone stimulator 2 hours /day .Patient seen PA yesterday x-rays looked good. MRI showed Multilevel degenerative changes in the lumbar spine, worse at L4-5 resulting in severe spinal canal stenosis and severe left as well as moderate right neural foraminal narrowing. Indeterminate degree of intrathecal nerve root impingement at this level. Otherwise, at this level, there is left L4 and bilateral L5 nerve root impingement. Pain medication percocet and muscle relaxer as needed. Patient had prior PT prior to surgery. Patient has no pain. Denies paresthesia/tingling-. Bowel/bladder -. Patient pain not affects sleeping . Coughing/sneezing-. Bowel /bladder-. Patient affects QOL and function. Patient goals to return to normal. RTD in 1 month SOCIAL: VOCATION: retired Objective Objective: POSTURE:WFL GAIT: reciprocal pattern SKIN: incision well approximate NEURO: denies paresthesia/tingling ,reflexes intact reflexes L3-4,L4-5,L5-S1 2/3 FLEXABILITY: hamstrings WFL MMT: quads/hams/hip 4/5 ,ankle 5/5 LUMBAR ROM: flexion mod loss ,extension mod loss ,side glides mod loss Special Tests L/S Slump test left side: Negative L/S Slump test right side: Negative L/S Left Straight Leg Raise: Negative L/S Right Straight Leg Raise: Negative Balance/Special Test Scores Oswestry Low Back Score: 9 Goals Goal 1:: Patient to be I with HEP for back Goal Time Frame: 4-6 Weeks Goal 2:: Patient to improve lumbar ROM for function of recovery to put on shoes Goal Time Frame: 4-6 Weeks Goal 3:: Patient to improve back oswestry score by 5 points to improve QOL and function Goal Time Frame: 4-6 Weeks Goal 4:: Patient to demonstrate 80% improvement with improve function and return to all functional tasks. Goal Time Frame: 4-6 Weeks Rehabilitation Potential Physical Therapy Diagnosis: Patient lumbar s/p lumbar fusion L4-5 oblique lumbar interbody fusion on 08/20/24. Patient doing well . Patient has limitations with decrease lumbar ROM ,weakness impairs gait and function thus benefit from skilled PT Rehabilitation Potential: Good Anticipated Interventions Patient/Client Instruction: Educate patient on: Condition and Plan of Care For the Purpose of:: To decrease pain, To increase ROM, To improve muscle performance and motor function, To improve ability to perform ADL's, To increase tolerance to activity/condition/position, To improve ability of physical actions for home/community/work/leisure, To improve health of tissue, To decrease soft tissue restriction, To increase flexibility/ROM and To improve tolerance to ADL's Therapeutic Exercise to Include: Strength training, Body mechanics, Postural training and Dynamic Lumbar Stabilization For the Purpose of:: To decrease pain, To improve muscle performance and motor function, To improve ability to perform ADL's, To increase tolerance to activity/condition/position, To improve ability of physical actions for home/community/work/leisure, To improve gait and locomotor functions, To increase flexibility/ROM, To reduce risk of recurrence and To improve tolerance to ADL's Text: Thank you for the opportunity to evaluate your patient. For Medicare and Medicare HMO plans, please review the plan of care and approve it. It will need to be FAXED BACK to us at [phone] for Medicare purposes. For Medicare only, by signing this I certify the plan of care. Please let me know if there are questions or concerns regarding this plan of care. Physician Signature: Date:
--- NOTE | 2024-09-29 10:56 | HP.PTDCSUM ---
Discharge Summary D/C summary: It has been my pleasure to treat CHANG KIDD referred by SABINO Sin, with the diagnosis of S/P ARTHRODESIS for a total of 9 visit(s). Discharge Date: 09/29/24 Please see the following information for a summary of their discharge status. Subjective Subjective: Doing well RTD 09/30/24 Pain low back: Pain Intensity (Out of 10): 0 Overall Improvement % Improvement: 100 Objective Objective/Function: POSTURE:WFL GAIT: reciprocal pattern SKIN: well approximate NEURO: denies paresthesia/tingling ,reflexes intact reflexes L3-4,L4-5,L5-S1 2/3 FLEXABILITY: hamstrings WFL MMT: quads/hams/hip 4/5 ,ankle 5/5 LUMBAR ROM: flexionWFL ,extension mod loss ,side glidesMIN loss Goals Goal 1:: Patient to be I with HEP for back Goal Progress: Goal Met Goal 2:: Patient to improve lumbar ROM for function of recovery to put on shoes Goal Progress: Goal Met Goal 3:: Patient to improve back oswestry score by 5 points to improve QOL and function Goal Progress: Goal Met Goal 4:: Patient to demonstrate 80% improvement with improve function and return to all functional tasks. Goal Progress: Goal Met Plan Plan: D/C TO HEP D/C Information d/c sentence: If there are questions or concerns regarding this patient's physical therapy, please feel free to call me at [phone]. Thank you for the referral of this patient. Sincerely, Micha Solomon, PT, Cert MDT, OCS Balance/Gait/Functional tests Balance/Special Test Scores Oswestry Low Back Score: 1 Improvement % Improvement: 100
== END 2024-09-29 12:16 | disposition home or self-care (01) ==
LOC: PT 10:30
PROVIDERS: PCP Family Medicine; Referring Provider Student in an Organized Health Care Education/Training Program; Visit Provider Student in an Organized Health Care Education/Training Program
DX: Z98.1 Arthrodesis status (principal)
CPT/HCPCS: 97110; 97162

== ENCOUNTER → 2025-02-27 | Outpatient (CLI) | payer MEDICARE, OTHER, SELFPAY | END | disposition home or self-care (01) | LOC: LAB 10:02 | PROVIDERS: PCP Family Medicine; Referring Provider Family Medicine; Visit Provider Family Medicine | DX: E03.9 Hypothyroidism, unspecified (principal) | CPT/HCPCS: 36415; 84439; 84443 ==

== ENCOUNTER → 2025-03-13 | Outpatient (CLI) | payer MEDICARE, OTHER, SELFPAY ==
--- NOTE | 2025-03-13 07:22 | BI_ITS ---
EXAM: SCRN MAMM (CAD)W/JOELLE BILAT DATE: 03/13/2025 CLINICAL HISTORY: F, Age 69 y/o , SCREENING TECHNIQUE: Procedure Code: [id number] Modality: MG Procedure: SCRN MAMM (CAD)W/JOELLE BILAT COMPARISON: Prior exam(s) dated 12/04/2023, 06/05/2022. FINDINGS: TISSUE DENSITY: There are scattered areas of fibroglandular density. Bilateral Breast Mammographic Findings: No significant masses, calcifications or other abnormalities are identified. BI/SCRN MAMM (CAD)W/JOELLE BILAT IMPRESSION: There is no mammographic evidence of malignancy. OVERALL FINAL ASSESSMENT BI-RADS 1: NEGATIVE. RECOMMENDATION: Routine annual follow-up in 1 Year A letter with findings and recommendations will be mailed to the patient. Reading Location: [id number]
--- OUTSIDE RECORDS SUMMARY | 2025-03-13 07:27 | XMS RPT_ITS | CCD ---
Author Organization [facility] Care Team Providers Care Social Services Counselor Name Role Phone AlexValerie robinse Unavailable Unavailable April Schmitt Unavailable Unavailable Emely Pena Unavailable Unavailable Dr. Álvaro Jackson Primary Care Unavaila Sana Hall Referring Unavailable Sana SCHMITT Attending Unavailable Sana SCHMITT Attending Unavailable Self, Referral Referring Unavailable Dr. Álvaro Jackson Primary Care Unavaila Álvaro Kang DO Primary Care Provider Unavailable Primary Care Provider UnavailLA Braun Attending Unavailable SHARMILA FONSECA Attending Unavailable SELF Referring Unavailable Dr. Álvaro Jackson DO Primary Care Provider Dr. Álvaro Jackson DO Referring Provider Dr. Anabella Styles MD Attending Provider Dr. Jone Abarca MD Attending Provider Dr. Anabella Styles MD Referring Provider Dr. Anabella Styles MD Admit Provider Dr. Anabella Styles MD Other Provider Dr. Joby Tierney DO Other Provider Dr. Avelina Oviedo MD Other Provider Unavailab Dr. Sandra Delarosa MD Other Provider Dr. Terrell Carcamo DO Other Provider Unavail able Dr. Terrell Tinsley MD Other Provider Unavailable Dr. Jem Wong MD Other Provider Dr. Moe Cook MD Other Provider Gordo TRIMBLE, Dr. Donald Other Provider Ashley TRIMBLE, Dr. Sequeira Other Provider Aylin BELL, Dr. Trena Heath Other Provider Deni BELL, Dr. Garett Saldaña Other Provider Jonnathan BELL, Dr. Vigil Other Provider Han BELL, Dr. Mcduffie Other Provider Cayden BELL, Dr. Novak Other Provider Claudia BELL, Dr. Darden Other Provider Kristyn TRIMBLE, Dr. Moran Attending Provider Kristyn TRIMBLE, Dr. Moran Other Provider Deni BELL, Dr. Garett Saldaña Attending Provider Etelvina Betancourt Attending Provider Etelvina Betancourt Referring Provider Dr. Álvaro Jackson DO Primary Care Provider Dr. Álvaro Jackson DO Referring Provider Dr. Anabella Styles MD Attending Provider Álvaro Jackson DO Primary Care Provider APRIL SCHMITT Attending Unavailable APRIL SCHMITT Referring Unavailable ÁLVARO JACKSON Primary Care Unavailable Dr. Álvaro Jackson DO Primary Care Provider Dr. Álvaro Jackson DO Referring Provider Dr. Anabella Styles MD Attending Provider Dr. Jone Abarca MD Attending Provider Dr. Álvaro Jackson DO Attending Provider Álvaro Jackson Primary Care Unavailable Anabella Styles Referring Unavailable Jone Abarca Attending Unavailable Garett Cheema Attending Unavailable Álvaro Jackson Primary Care Unavailable Anabella Styles Admitting Unavailable Styles, Anabella Referring Unavailable Mosteller, Joby Consulting Unavailable Oviedo, Achintya Consulting Unavailable Sandra Rousseau L Consulting Unavailable Carcamo, Terrell Consulting Unavailable Jacintae, Terrell Consulting Unavailable Oleleonele, Ifijen Consulting Unavailable Agyepong, Moe Consulting Unavailable Gordo, Shabana Consulting Unavailable Tereletsky, Álvaro Consulting Unavailable Koram, Trena Ivana Consulting Unavailable Kotsonis, Garett F Consulting Unavailable Jonnathan, Musa Consulting Unavailable Short, Froy Consulting Unavailable Rodarte, Scarlet Consulting Unavailable Claudia, Adelso Consulting Unavailable Styles, Anabella Consulting Unavailable Dean Simons Attending Unavailable Azalia, Álvaro Primary Care Unavailable Styles, Anabella Admitting Unavailable Styles, Anabella Referring Unavailable Mosteller, Joby Consulting Unavailable Oviedo, Achintya Consulting Unavailable White, Sandra L Consulting Unavailable ranjeet Dontae, Terrell Consulting Unavailable Kittoe, Terrell Consulting Unavailable JoppDean jonas Consulting Unavailable Oleghe, Ifijen Consulting Unavailable Agyepong, Moe Consulting Unavailable Gordo, Shabana Consulting Unavailable Tereletsky, Álvaro Consulting Unavailable Koram, Trena Ivana Consulting Unavailable Kotsonialdair, Garett F Consulting Unavailable Jonnathan, Musa Consulting Unavailable Short, Froy Consulting Unavailable Rodarte, Scarlet Consulting Unavailable Claudia, Adelso Consulting Unavailable Styles, Anabella Consulting Unavailable Azalia, Álvaro Primary Care Unavailable Azalia, Álvaro Referring Unavailable Styles, Anabella Attending Unavailable Azalia, Álvaro Attending Unavailable Azalia, Álvaro Primary Care Unavailable Azalia, Álvaro Attending Unavailable Azalia, Álvaro Primary Care Unavailable Azalia, Álvaro Referring Unavailable Azalia, Álvaro Attending Unavailable Styles, Anabella Consulting Unavailable Azalia, Álvaro Referring Unavailable Azalia, Álvaro Primary Care Unavailable Styles, Anabella Attending Unavailable Styles, Anabella Attending Unavailable Azalia, Álvaro Primary Care Unavailable Rima, Heath Attending Unavailable Azalia, Álvaro Primary Care Unavailable Azalia, Álvaro Referring Unavailable JaradAshleyyn Attending Unavailable Azalia, Álvaro Primary Care Unavailable Rima, Jone Attending Unavailable Azalia, Álvaro Referring Unavailable Jarad, Etelvina Attending Unavailable Azalia, Álvaro Primary Care Unavailable Azalia, Álvaro Primary Care Unavailable Azalia, Álvaro Referring Unavailable Styles, Anabella Attending Unavailable Azalia, Álvaro Primary Care Unavailable Azalia, Álvaro Referring Unavailable Styles, Anabella Attending Unavailable Azalia, Álvaro Attending Unavailable Azalia, Álvaro Primary Care Unavailable Azalia, Álvaro Referring Unavailable BIELAWSKI, MAYCO Referring Unavailable Azalia, Álvaro Primary Care Unavailable BIELAWSKI, MAYCO Attending Unavailable Azalia, Álvaro Primary Care Unavailable Jarad, Etelvina Referring Unavailable Jarad, Etelvina Attending Unavailable Zaalia, Álvaro Attending Unavailable Azalia, Álvaro Referring Unavailable Azalia, Álvaro Primary Care Unavailable Azalia, Álvaro Primary Care Unavailable Rima, Heath Attending Unavailable BIELAWSKI, MAYCO Referring Unavailable BIELAWSKI, MAYCO Attending Unavailable Azalia, Álvaro Primary Care Unavailable Azalia, Álvaro Primary Care Unavailable Styles, Anabella Admitting Unavailable Styles, Anabella Referring Unavailable Styles, Anabella Attending Unavailable Joby Tierney Consulting Unavailable Avelina Oviedo Consulting Unavailable Sandra Rousseau Consulting Unavailable Terrell Carcamo Consulting Unavailable Terrell Tinsley Consulting Unavailable Jem Wong Consulting Unavailable Moe Cook Consulting Unavailable Shabana Caro Consulting Unavailable Álvaro Ramirez Consulting Unavailable Trena Viera Consulting Unavailable Garett Cheema Consulting Unavailable Musa De Santiago Consulting Unavailable Froy Short Consulting Unavailable Scarlet Rodarte Consulting Unavailable Adelso Taylor Consulting Unavailable Azalia, Álvaro Primary Care Unavailable Styles, Anabella Attending Unavailable Azalia, Álvaro Referring Unavailable Azalia, Álvaro Primary Care Unavailable Rima, Heath Attending Unavailable Azalia, Álvaro Primary Care Unavailable Rima, Jone Attending Unavailable Azalia, Álvaro Primary Care Unavailable Azalia, Álvaro Referring Unavailable Styles, Anabella Attending Unavailable Allergies Allergy Classification Reported Allergen(s) Allergy Type Date of Onset Reaction(s) Facility (1 source) Propensity to adverse reactions to drug 7 [facility] (1 source) Propensity to adverse reactions to drug 4 [facility] (1 source) Propensity to adverse reactions to drug 7 [facility] (1 source) Propensity to adverse reactions to drug 4 [facility] (1 source) Propensity to adverse reactions to drug 7 [facility] (1 source) Propensity to adverse reactions to drug 4 [facility] (1 source) Propensity to adverse reactions to drug 7 [facility] (1 source) Propensity to adverse reactions to drug 4 [facility] (1 source) Propensity to adverse reactions to drug 7 [facility] (1 source) Propensity to adverse reactions to drug 4 [facility] (1 source) Propensity to adverse reactions to drug 7 [facility] (1 source) Propensity to adverse reactions to drug 4 [facility] (9 sources) cefdinir Drug Allergy 2 Nausea [facility] (11 sources) Penicillins; Translations: [PENICILLINS] Allergy to substance 6 Other [facility] Comment on above: many years ago unsur e (4 sources) Penicillins Propensity to adverse reactions 6 Unknown, [facility] Work Phone: (5 sources) Diclofenac; Translations: [DICLOFENAC SODIUM] Drug Allergy 7 Unknown [facility] Work Phone: (5 sources) Etanercept; Translations: [ETANERCEPT] Drug Allergy 1 Other: See Comments [facility] Work Phone: (5 sources) nabumetone; Translations: [NABUMETONE] Drug Allergy 6 [facility] (5 sources) Naproxen; Translations: [NAPROXEN SODIUM] Drug Allergy 6 [facility] Work Phone: (5 sources) Sulfonamides (Antibiotic); Translations: [SULFA (SULFONAMIDE ANTIBIOTICS)] Drug Allergy 6 GI Upset [facility] (4 sources) [place] [Other] Propensity to adverse reactions 6 [facility] (1 source) OTHER; Translations: [OTHER] Propensity to adverse reactions (disorder) 6 [facility] (2 sources) Penicillins Propensity to adverse reactions 6 GI Upset, Unknown [facility] (1 source) cefdinir Drug Allergy 5 [facility] (1 source) Penicillins Drug allergy (disorder) 5 [facility] Repository Medications Current Medications Medication Drug Class(es) Dates Sig (Normalized) Sig (Original) biotin 10 mg oral tablet (9 sources) Start: 12-05-2017 [id number] Medication biotin biotin 10 mg 12/05/2017 Active (Outside) End: 08-15-2024 biotin 5,000 mcg ODT Take by mouth. 08/15/2024 Discontinued (Course of therapy completed) cholecalciferol 0.025 mg oral capsule (10 sources) Vitamin D Start: 08-15-2024 take 1 capsule by mouth once daily Cholecalciferol (Vitamin D3) 25 mcg (1,000 unit) capsule Active 25 ug PO daily August 15, 2024 1:00am supplement Start: 08-16-2016 take 1 capsule by [facility] once daily Cholecalciferol, Vitamin D3, 5,000 unit cap Take 1 capsule by mouth once daily. 0 08/16/2016 Active DULoxetine 30 mg delayed release oral capsule (8 sources) Serotonin and Norepinephrine Reuptake Inhibitor Start: 07-08-2024 take 1 capsule by mouth once daily Duloxetine 30 mg capsule,delayed release(DR/EC) Active 30 mg PO DAILY July 08, 2024 1:00am USES FOR BACK Start: 07-03-2024 take 1 capsule by [facility] twice daily DULoxetine (CYMBALTA) 30 mg capsule Take 30 mg by mouth two times a day. 07/03/2024 Active ergocalciferol 1.25 mg oral tablet (7 sources) Provitamin D2 Compound Start: 12-05-2017 [id number] Medication ergocalciferol (vitamin D2) 1,250 mcg (50,000 unit) capsule Vitamin D2 1,250 mcg (50,000 unit) 12/05/2017 Active (Outside) End: 12-04-2023 ergocalciferol 50,000 unit c apsule (VITAMIN D2, DRISDOL) Vitamin D2 50,000 unit capsule 0 12/04/2023 Discontinued 1 ml guselkumab 100 mg/ml auto-injector (20 sources) Interleukin-23 Antagonist Start: 12-04-2024 End: 12-10-2024 guselkumab (Tremfya) 100 mg/mL injection Indications: moderate to severe plaque psoriasis Inject 1 mL (100 mg) under the skin every 8 (eight) weeks. 1 mL 5 12/10/2024 12/10/2024 Discontinued (Reorder) Start: 04-16-2023 guselkumab (Tr emfya) 100 mg/mL injection Indications: moderate to severe plaque psoriasis Inject 1 mL (100 mg) under the skin every 8 (eight) weeks. 1 mL 3 04/16/2023 Active Start: 03-10-2022 [id number] Medica tion guselkumab 100 mg/mL subcutaneous auto-injector Tremfya 100 mg/mL subcutaneous auto-injector 100 mg/mL 1 Pen Needle subcutaneously as directed 03/10/2022 Active (Current) Start: 10-25-2018 inject 100 mg by sub cutaneous injection once daily [id number] Medication guselkumab 100 mg/mL subcutaneous syringe Tremfya 100 mg/mL subcutaneous syringe 100 mg/mL 0 other daily 04/08/2019 Discontinued Start: 04-16-2017 Guselkumab (Tr emfya) 100 mg/mL syringe Active 100 mg SC every 8 weeks December 27, 2022 12:00am PSORIATIC ARTHRITIS leflunomide 20 mg oral tablet (20 sources) Antirheumatic Agent Start: 06-24-2022 take 1 tablet by mouth once daily Leflunomide 20 mg tablet Active 20 mg PO DAILY June 24, 2022 1:00am PSORIATIC ARTHRITIS Start: 03-16-2014 [id number] Medicat ion leflunomide leflunomide 10 mg 03/16/2014 Active (Outside) naproxen sodium 220 mg oral tablet (3 sources) Nonsteroidal Anti-inflammatory Drug End: 08-15-2024 take 2 tablets by mouth twice daily at mealtime naproxen sodium (ALEVE) 220 mg tablet Take 440 mg by mouth twice daily with meals. 08/15/2024 Discontinued (Course of therapy completed) phentermine hydrochloride 37.5 mg oral tablet (6 sources) Sympathomimetic Amine Anorectic Start: 04-03-2024 take 1 tablet by mouth once daily in the morning Phentermine 37.5 mg tablet Active 37.5 mg PO EVERY MORNING April 03, 2024 12:00am WEIGHT LOSS spironolactone 50 mg oral tablet (8 sources) Aldosterone Antagonist Start: 10-15-2023 take 1 tablet by mouth once daily Spironolactone 50 mg tablet Active 50 mg PO daily April 03, 2024 12:00am WATER RETENTION vitamin b12 2.5 mg sublingual tablet (3 sources) Vitamin B12 End: 08-15-2024 Cyanocobalamin (VITAMIN B-12) 2,500 mcg subl Dissolve under the tongue. 08/15/2024 Discontinued (Course of therapy completed) Completed/Discontinued Medications Medication Drug Class(es) Dates Sig (Normalized) Sig (Original) acetaminophen 325 mg / HYDROcodone bitartrate 5 mg oral tablet (12 sources) Opioid Agonist Start: 08-21-2024 End: 09-30-2024 Hydrocodone-Aceta minophen 5-325 mg tablet Discontinued 1 {tbl} PO EVERY 6 HOURS as needed for pain 28 7 0 2024 September 30, 2024 9:55am Status post lumbar spinal fusion Arthrodesis status amLODIPine 2.5 mg oral tablet (6 sources) Dihydropyridine Calcium Channel Geraldine Start: 03-16-2014 [id number] Medication amlodipine amlodipine 2.5 mg 03/16/2014 Discontinued azelastine hydrochloride 0.137 mg/actuat / fluticasone propionate 0.05 mg/actuat metered dose nasal spray (9 sources) Corticosteroid, Histamine-1 Receptor Antagonist Start: 06-24-2022 End: 12-27-2022 Azelastine-Flutic asone (Dymista) 137-50 mcg/spray spray,non-aerosol Discontinued 1 NMA INTRANASAL TWICE A DAY 17 08June 24, 2022 1:00am December 27, 2022 1:05pm administer into each nostril Start: 06-24-2022 take 1 spray(s) nasa l route twice daily Azelastine-Fluticasone (Dymista) 137-50 mcg/spray spray,non-aerosol Active 1 SPRAY INTRANASAL TWICE A DAY June 24, 2022 1:00am administer into each nostril calcium carbonate 750 mg chewable tablet (6 sources) Start: 07-28-2024 End: 08-15-2024 take 1 tablet by mouth three times daily as needed Calcium Carbonate (Tums) 300 mg (750 mg) tablet,chewable Discontinued 300 mg PO THREE TIMES A DAY as needed for dyspepsia July 28, 2024 1:00am August 15, 2024 2:50pm 1 ml certolizumab pegol 200 mg/ml prefilled syringe (6 sources) Start: 03-16-2014 [id number] Medication certolizumab pegol 400 mg/2 mL (200 mg/mL x2) subcutaneous syringe kit Cimzia 400 mg/2 mL (200 mg/mL x 2) 03/16/2014 Discontinued cycloSPORINE 100 mg oral capsule (20 sources) Calcineurin Inhibitor Immunosuppressant Start: 09-29-2015 take 1 capsule by mouth once daily [id number] Medication cyclosporine 100 mg capsule cyclosporine 100 mg capsule 100 mg 1 Capsule by mouth daily 09/29/2015 Prior History No Longer Active Start: 08-24-2015 take 1 capsule by [facility] in the morning [id number] Medication cyclosporine modified 25 mg capsule cyclosporine modified 25 mg capsule 25 mg 3 Capsule by mouth in the morning 09/20/2015 Prior History No Longer Active Start: 09-21-2014 take 1 capsule by [facility] once daily [id number] Medication cyclosporine 25 mg capsule cyclosporine 25 mg capsule 25 mg 2 Capsule by mouth daily 03/04/2015 Prior History No Longer Active docusate sodium 50 mg / sennosides, assisted 8.6 mg oral tablet (6 sources) Start: 08-21-2024 End: 09-30-2024 Sennosides-Docusate Sodium (Stimulant Laxative Plus) 8.6-50 mg Tablet Discontinued 2 {tbl} PO TWICE A DAY as needed for constipation August 21, 2024 1:56pm September 30, 2024 9:55am fluocinonide 0.5 mg/ml topical cream (12 sources) Corticosteroid Start: 01-31-2016 [id number] Medicat ion fluocinonide 0.05 % topical solution fluocinonide 0.05 % topical solution 0.05 % 1 Application topically daily 01/31/2016 Prior History No Longer Active Start: 05-05-2015 [id number] Medicat ion fluocinonide 0.05 % topical ointment fluocinonide 0.05 % topical ointment 0.05 % 1 Application topically twice a day 05/05/2015 Prior History No Longer Active folic acid 1 mg oral tablet (12 sources) Start: 09-14-2016 take 1 tablet by mouth once daily [id number] Medication folic acid 1 mg tablet folic acid 1 mg tablet 1 mg 1 Tablet by mouth daily 09/14/2016 Prior History No Longer Active Start: 08-30-2016 [id number] Medicat ion folic acid folic acid 20 mg 08/30/2016 Discontinued hydrOXYzine hydrochloride 25 mg oral tablet (12 sources) Antihistamine Start: 05-05-2015 take 1 tablet by mouth at bedtime [id number] Medication hydroxyzine HCl 25 mg tablet hydroxyzine HCl 25 mg tablet 25 mg 1 Tablet by mouth at bedtime 09/29/2015 Prior History No Longer Active 1 ml ixekizumab 80 mg/ml auto-injector (18 sources) Interleukin-17A Antagonist Start: 03-15-2016 [id number] Medication ixekizumab 80 mg/mL subcutaneous auto-injector Taltz Autoinjector (2 Pack) 80 mg/mL subcutaneous 80 mg/mL 1 Pen Needle subcutaneously as directed 03/15/2016 Discontinued Lactobacillus acidophilus (1 source) End: 12-04-2023 LACTOBACILLUS ACIDOPHILUS (PROBIOTIC ORAL) Take by mouth. 0 12/04/2023 Discontinued meloxicam 15 mg oral tablet (20 sources) Nonsteroidal Anti-inflammatory Drug Start: 08-21-2024 End: 09-30-2024 take 1 tablet by mouth once daily Meloxicam 15 mg Tablet Discontinued 15 mg PO DAILY 30 30 0 August 21, 2024 1:00am September 30, 2024 9:55am Start: 06-24-2022 End: 07-08-2024 take 1 tablet by mouth twice daily as needed for pain Meloxicam 7.5 mg tablet Discontinued 7.5 mg PO TWICE DAILY NEEDED as needed for Pain June 24, 2022 1:00am July 08, 2024 9:03am End: 08-15-2024 take 1 tablet by mouth once daily meloxicam (MOBIC) 7.5 mg tablet Take 1 tablet by mouth once daily. 08/15/2024 Discontinued (Course of therapy completed) methocarbamol 500 mg oral tablet (12 sources) Muscle Relaxant Start: 08-21-2024 End: 09-30-2024 Methocarbamol 500 mg tablet Discontinued 750 mg PO THREE TIMES A DAY as needed for Pain/spasms 30 7 0 2024 10:24am September 30, 2024 9:55am methotrexate 2.5 mg oral tablet (12 sources) Folate Analog Metabolic Inhibitor Start: 09-14-2016 [id number] Medication methotrexate sodium 2.5 mg tablet methotrexate sodium 2.5 mg tablet 2.5 mg 4 Tablet by mouth as directed 09/14/2016 Discontinued Start: 08-30-2016 [id number] Medicat ion methotrexate (bulk) methotrexate (bulk) 100 % 08/30/2016 Discontinued omeprazole 40 mg delayed release oral capsule (6 sources) Proton Pump Inhibitor Start: 03-16-2014 [id number] Medication omeprazole 40 mg capsule,delayed release Prilosec 40 mg 03/16/2014 Discontinued predniSONE 20 mg oral tablet (20 sources) Start: 04-03-2024 End: 07-08-2024 take 1 tablet by mouth once daily Prednisone 10 mg tablet Discontinued 10 mg PO daily April 03, 2024 12:00am July 08, 2024 9:03am 12mg Start: 04-03-2024 End: 04-03-2024 Prednisone 20 mg tablet Disc ontinued mg PO April 03, 2024 12:00am April 03, 2024 8:35am Start: 06-24-2022 End: 12-27-2022 take 2 tablets by mouth once daily Prednisone 20 mg tablet Discontinued 40 mg PO DAILY 10 June 24, 2022 1:00am December 27, 2022 1:05pm Start: 06-24-2022 take 40 mg by mouth once daily Prednisone Active 40 MG PO DAILY 03 29June 24, 2022 1:00am progesterone 200 mg oral capsule (1 source) Progesterone End: 12-04-2023 take 1 capsule by mouth once daily progesterone micronized (PROMETRIUM) 200 mg capsule Take 1 capsule by mouth once daily. 0 12/04/2023 Discontinued 1 ml secukinumab 150 mg/ml auto-injector (12 sources) Interleukin-17A Antagonist Start: 11-24-2014 [id number] Medication secukinumab 150 mg/mL subcutaneous pen injector Cosentyx Pen (2 Pens) 300 mg (150 mg/mL) subcutaneous 150 mg/mL 2 units subcutaneously as directed 11/24/2014 Discontinued thyroid (assisted) 60 mg oral tablet (11 sources) Start: 11-04-2018 End: 12-04-2023 take 1 tablet by mouth once daily Thyroid (Pork) ([place] Thyroid) 60 mg tablet Discontinued 60 mg PO DAILY June 24, 2022 1:00am December 27, 2022 1:05pm End: 12-04-2023 take 1 tablet by mouth once daily Thyroid, Pork, (NATURE-THROID) 65 mg tab Take 1 tablet by mouth once daily. 0 12/04/2023 Discontinued Problems Active Problems Problem Classification Problem Date Documented Date Episodic/Chronic Menopausal disorders (4 sources) Menopausal syndrome; Translations: [Menopausal and female climacteric states] Onset: 02-16-2020 04-15-2020 Chronic Other acquired deformities (12 sources) Scoliosis of lumbar spine; Translations: [Scoliosis, unspecified] 07-08-2024 Chronic Other acquired deformities (10 sources) Lumbar spondylolisthesis; Translations: [Spondylolisthesis, lumbar region] 07-08-2024 Episodic Other aftercare (12 sources) Other senior living (current) drug therapy Onset: 08-08-2021 Episodic Other aftercare (1 source) Long-term current use of drug therapy; Translations: [Long-term current use of immunomodulator] 11-28-2023 Episodic Other connective tissue disease (19 sources) History of lumbar fusion; Translations: [Arthrodesis status] 08-21-2024 Episodic Other inflammatory condition of skin (13 sources) Psoriasis; Translations: [Psoriasis, unspecified] Onset: 08-08-2021 11-28-2023 Chronic Other inflammatory condition of skin (20 sources) Psoriasis vulgaris Onset: 08-29-2016 Chronic Other inflammatory condition of skin (6 sources) Generalized pustular psoriasis Onset: 08-08-2021 Chronic Other inflammatory condition of skin (20 sources) Pustulosis palmaris et plantaris Onset: 05-04-2015 Chronic Other inflammatory condition of skin (4 sources) Psoriatic arthritis; Translations: [Arthropathic psoriasis, unspecified] 04-16-2017 Chronic Other inflammatory condition of skin (6 sources) Arthropathic psoriasis, unspecified; 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] 12-27-2022 Chronic Other inflammatory condition of skin (2 sources) Psoriasis, unspecified; Translations: [Psoriasis, unspecified] Onset: 12-09-2024 Chronic Other screening for suspected conditions (not mental disorders or infectious disease) (2 sources) Encounter for screening mammogram for malignant neoplasm of breast; Translations: [Encounter for screening for cardiovascular disorders] Onset: 03-02-2025 Episodic Other upper respiratory disease (9 sources) Hypertrophy of nasal turbinates; Translations: [Hypertrophy of nasal turbinates] 07-02-2022 Episodic Other upper respiratory disease (9 sources) Nasal congestion; Translations: [Nasal congestion] 07-02-2022 Episodic Residual codes; unclassified (6 sources) Personal history of immunosupression therapy Onset: 08-08-2021 Episodic Spondylosis; intervertebral disc disorders; other back problems (10 sources) Lumbar spondylosis; Translations: [Spondylosis without myelopathy or radiculopathy, lumbar region] 04-03-2024 Chronic Spondylosis; intervertebral disc disorders; other back problems (20 sources) Cervical radiculopathy; Translations: [Radiculopathy, cervical region] Onset: 11-27-2016 11-27-2016 Episodic Thyroid disorders (1 source) Hypothyroidism, unspecified; Translations: [Hypothyroidism, unspecified] Onset: 03-04-2025 Chronic Unclassified (6 sources) Status post lumbar spinal fusion; Translations: [Z98.1 - Arthrodesis status] Unclassified (1 source) Low back pain, unspecified; Translations: [Low back pain, unspecified] Onset: 04-03-2024 Past or Other Problems Problem Classification Problem Date Documented Da te Episodic/Chronic Administrative/social admission (5 sources) Patient encounter status; Translations: [Other specified counseling] Onset: 11-05-2018 04-15-2020 Episodic Allergic reactions (12 sources) Contact dermatitis; Translations: [Unspecified contact dermatitis, unspecified cause] Onset: 07-02-2008 Resolved: 10-29-2015 07-16-2015 Episodic Essential hypertension (4 sources) Benign essential hypertension; Translations: [Essential (primary) hypertension] Onset: 01-27-2015 Resolved: 04-16-2017 06-20-2021 Chronic Genitourinary symptoms and ill-defined conditions (4 sources) Nocturia; Translations: [Nocturia] Onset: 11-09-2008 Resolved: 07-16-2015 07-16-2015 Episodic Mood disorders (4 sources) Depressive disorder; Translations: [Depression] Onset: 08-04-2009 Resolved: 08-16-2016 08-16-2016 Chronic Other and unspecified benign neoplasm (4 sources) Melanocytic nevus of trunk; Translations: [Melanocytic nevi of trunk] Onset: 02-11-2010 Resolved: 10-29-2015 10-29-2015 Episodic Other bone disease and musculoskeletal deformities (4 sources) Osteopenia; Translations: [Other specified disorders of bone density and structure, unspecified site] Onset: 05-16-2011 05-16-2011 Episodic Other connective tissue disease (4 sources) Peripheral enthesopathy; Translations: [Peripheral enthesopathies and allied syndromes] Onset: 02-27-2007 04-15-2010 Episodic Other connective tissue disease (2 sources) Arthrodesis status; Translations: [Arthrodesis status] Onset: 08-24-2024 Episodic Other diseases of kidney and ureters (1 source) Disorder of kidney and ureter, unspecified; Translations: [Disorder of kidney and ureter, unspecified] Onset: 05-02-2024 Episodic Other inflammatory condition of skin (4 sources) Pruritus of skin; Translations: [Pruritus, unspecified] Onset: 07-02-2008 Resolved: 07-16-2015 07-16-2015 Episodic Other lower respiratory disease (4 sources) Dyspnea; Translations: [Shortness of breath] Onset: 12-14-2008 Resolved: 07-16-2015 07-16-2015 Episodic Other nutritional; endocrine; and metabolic disorders (4 sources) Obesity; Translations: [Obesity, unspecified] Onset: 12-14-2008 Resolved: 04-16-2017 04-16-2017 Chronic Other skin disorders (4 sources) Disorder of sebaceous gland; Translations: [Other specified follicular disorders] Onset: 06-29-2008 Resolved: 07-16-2015 07-16-2015 Episodic Other skin disorders (4 sources) Generalized hyperhidrosis; Translations: [Generalized hyperhidrosis] Onset: 11-09-2008 Resolved: 07-16-2015 07-16-2015 Episodic Other skin disorders (4 sources) Skin tag; Translations: [Unspecified hypertrophic and atrophic conditions of skin] Onset: 02-11-2010 Resolved: 05-11-2010 05-11-2010 Episodic Other skin disorders (4 sources) Solar lentigo; Translations: [Other melanin hyperpigmentation] Onset: 02-11-2010 Resolved: 05-11-2010 05-11-2010 Episodic Other upper respiratory disease (4 sources) Laryngeal spasm; Translations: [Laryngeal spasm] Onset: 11-09-2008 04-15-2010 Episodic Residual codes; unclassified (4 sources) Insomnia; Translations: [Insomnia, unspecified] Onset: 11-09-2008 Resolved: 07-16-2015 07-16-2015 Episodic Rheumatoid arthritis and related disease (4 sources) Inflammatory polyarthropathy; Translations: [Inflammatory polyarthropathy] Onset: 05-11-2010 Resolved: 07-16-2015 07-16-2015 Chronic Screening and history of mental health and substance abuse codes (4 sources) Ex-smoker; Translations: [Personal history of nicotine dependence] Onset: 08-04-2009 Resolved: 10-29-2015 10-29-2015 Episodic Skin and subcutaneous tissue infections (4 sources) Pyoderma; Translations: [Pyoderma] Onset: 06-29-2008 Resolved: 07-16-2015 07-16-2015 Episodic Substance-related disorders (4 sources) Tobacco user; Translations: [Nicotine dependence, unspecified, uncomplicated] Onset: 06-19-2007 Resolved: 08-04-2009 08-04-2009 Chronic Unclassified (18 sources) Onset: 03-16-2014 Viral infection (4 sources) Verruca vulgaris; Translations: [Viral wart, unspecified] Onset: 08-21-2008 Resolved: 07-16-2015 07-16-2015 Episodic Results Test Name Value Interpretation Reference Range Facility T4 Free Directon 02-27-2025 T4 FREE DIRECT 0.80 ng/dL Normal 0.76-1.46 [facility] Comment on above: Performed By: #### L [id number], [id number] #### [facility] Laboratory [address] [place], [place], [id number] T4 freeOrdered By: Álvaro vega on 02-27-2025 Free T4 [Mass/Vol] 0.80 ng/dL 0.76-1.46 [facility] TSH DL <= 0.005 mIU/L QnOrde red By: Álvaro Jackson on 02-27-2025 TSH Qn 2.950 uIU/mL 0.300-4.200 [facility] Thyroid Stim Hormone (TSH)on 02-27-2025 TSH 2.950 uIU/mL Normal 0.300-4.200 [facility] Comment on above: Performed By: #### L [id number], [id number] #### [facility] [address] [place], [address] L/S Spine Min 4 Viewson 01-24 L/S Spine Min 4 Views [facility] Imaging Services [address] [place] [address] L/S Spine Min 4 Views MR#: [id number] Acct: [id number] Name: MADISYN BARKER Rep #: [id number] : 1955 F 69 From: Jocelyn Snider PCP: Dr. Álvaro Jackson, DO Status: DEP AMB Study: L/S Spine Min 4 Views Date of Exam: 02/13/25 Exam# [id number] Ordering Dr: Anabella Styles MD PROCEDURE: L/S SPINE MIN 4 VIEWS 02/13/2025 REASON FOR EXAM: INTERMITTENT LEFT BUTTOCKS PAIN, GETTING MORE FREQUENT RECENTLY TECHNIQUE: L/S SPINE MIN 4 VIEWS COMPARISON: Lumbosacral spine study dated 11/12/2024 FINDINGS: Four views of the lumbosacral spine were obtained. There are no fractures or dislocations of the sacrum. There are 5 lumbar-type vertebral bodies below the last set of paired ribs. There is a dextroscoliosis of the lumbar spine. Radiopaque hardware is projected over the posterior aspect of the L4 and L5 level. There is no fracture or loosening of the radiopaque hardware. There is a left lateral anchor screw in similar position when compared to the prior study. There is no spondylolisthesis or spondylolysis. Mild spondylosis is noted. There is a radiopaque disc spacer at the L4-L5 level. Degenerative disc disease is seen involving the L3-L4 disc space. The remaining disc spaces appear unremarkable. Arteriosclerotic vascular disease of the aorta is noted. Moderate amount of stool and gas is present throughout the colon. RAD/L/S Spine Min 4 Views IMPRESSION: The overall findings are similar when compared to the prior exam. Reading Location: [id number] CC: Dr. Anabella Styles MD; Dr. Álvaro Jackson DO Alteration Inspector: Signed Normal [facility] Orthopedic Visit Reporton Orthopedic Visit Report [facility] [address] [place] [address] [address] [place] [address] OFFICE VISIT Date of Service: 02/13/25 MR#: [id number] Acct: [id number] Name: MADISYN BARKER Rep #: [id number] : 1955 Provider: Dr. Anabella Styles MD Age/Sex: 69/F Location: [facility] [place] Status: Signed Intake Vital Signs 09/02/24 10:01 02/13/25 09:20 Height 5 ft 6 in 5 ft 6 in Weight: 156 lb BMI 25.2 Intake Visit Reasons: LUMBAR SPINE Chief Complaint: Lumbar spine pain Accompanied by: Self Is patient in pain?: Yes Pain scale (1-10): 1 Allergies cefdinir Allergy (Verified 02/13/25 09:22) Nausea Penicillins (PCN) Allergy (Verified 02/13/25 09:22) Other Medications ???Medication ???Instructions ???Recorded ???Confirmed ???Type leflunomide 20 mg tablet 20 mg PO DAILY PSORIATIC ARTHRITIS 06/24/22 02/13/25 History guselkumab 100 mg/mL subcutaneous 100 mg subcut Q8W PSORIATIC 12/2702/13/25 History syringe (Tremfya) ARTHRITIS phentermine 37.5 mg tablet 37.5 mg PO QAM WEIGHT LOSS 4 02/13/25 History spironolactone 50 mg tablet 50 mg PO QDAY WATER RETENTION 03/2502/13/25 History duloxetine 30 mg capsule,delayed 30 mg PO DAILY USES FOR BACK 07/0802/13/25 History release cholecalciferol (vitamin D3) 25 25 mcg PO QDAY supplement 08/15/24 02/13/25 History mcg (1,000 unit) capsule Have you fallen in the past year?: No PFSH Medical History Wears glasses Alcohol use Psoriatic arthritis Gastric reflux Former smoker Arthritis Surgical History History of colonoscopy H/O: hysterectomy Social History Smoking Status: Former smoker alcohol intake: current what type of physical activity do you participate in: other details: golf HPI LUMBAR SPINE Details: This documentation accurately reflects the service provided and the decisions made by me, Dr. Anabella Styles MD 02/13/25 09. Part of today???s visit was documented by Prieto Pak MA and Izabela Johnson RN, acting as scribe. MADISYN BARKER is a 69 year old F here today for lumbar spine. Patient states that her pain is a 1 today. She is having pain in the lower back on the left side. Patient states that the pain is not constant. The pain comes and goes. She states that she had surgery in her lower back. S/p L4-5 posterior spinal instrumented fusion 08-20-24. Patient states that the lower back pain started a month ago after she went golfing. She reports sharp zingers in her left low back that are intermittent and last a few minutes.This typically happens when she is sitting. The pain does not radiate into her leg. She is apprehensive to do any activities now due to this pain. She hasn't been to the gym in two months. Patient states that she hasn't had any recent injections in the lower back. She hasn't done PT since her surgery. The patient is a 69-year-old female presenting with back pain and concerns about lumbar disc degeneration. The patient reports that her back pain began after a golfing session following a two-month hiatus from gym activities, including water aerobics and chair yoga. She describes the pain as intermittent and localized to the left side, exacerbated by sitting and not alleviated by standing or walking. The pain is described as a sharp, poking sensation lasting a few minutes, occurring primarily while sitting. The patient has a history of L4-5 spinal fusion surgery, and current x-rays show no changes in alignment since the procedure. The x-rays reveal scoliosis with a concavity towards the right, causing stretch pain on the left side. The patient denies any pain radiating towards the neck and reports numbness in the lumbar region upon palpation. The patient expresses apprehension about engaging in activities that might exacerbate her condition, such as using stairs, due to sacroiliac joint dysfunction. She has been advised to avoid heavy lifting and to gradually resume physical activities. - Musculoskeletal: Reports intermittent sharp back pain on the left side, exacerbated by sitting, denies pain radiating towards the neck. - Neurological: Reports numbness in the lumbar region upon palpation. Attestation: Documentation on this patient encounter was supported using ambient scribe technology/ voice AI technology. The patient consented to recording for the purpose of documenting the encounter. Provider reviewed content of the generated note prior to signature. Ortho Exam General General: Yes no acute distress Neurologic: Yes alert and Yes oriented x3 Psychologic: Yes reasonable and appropriate Spine SPINE TESTING (more content not included)... Normal [facility] T-SPOT(R).TBon 12-13-2024 NEGATIVE CONTROL Passed Normal [facility] Comment on above: Order Comment: FASTI NG:NO FASTING: NO Performed By: #### 3 [id number] #### [facility]/[place] [id number] [place] Nursing Educator: Kam Arita M.D.,PhD PANEL A SPOT COUNT CORRECTED FOR NEG CONTROL 0 Normal [facility] Comment on above: Order Comment: FASTI NG:NO FASTING: NO Performed By: #### 3 [id number] #### [facility] [address] [place] Nursing Educator: Kam Arita M.D.,PhD PANEL B SPOT COUNT CORRECTED FOR NEG CONTROL 1 Normal [facility] Comment on above: Order Comment: FASTI NG:NO FASTING: NO Performed By: #### 3 1078 #### [facility]/[place] [facility] [address] [place] Nursing Educator: Kam Arita M.D.,PhD POSITIVE CONTROL Passed Normal [facility] Comment on above: Order Comment: FASTI NG:NO FASTING: NO Result Comment: For additional information, please refer to http://education.Starteed/faq/BWW168 (This link is being provided for informational/ educational purposes only.) Performed By: #### 3 [id number] #### [facility] [address] [place] Nursing Educator: Kam Arita M.D.,PhD T-SPOT.TB Negative Normal Negative [facility] Comment on above: Order Comment: FASTI NG:NO FASTING: NO Result Comment: A negative test result does not exclude the possibility of exposure to or infection with Mycobacterium tuberculosis (M. tuberculosis). Patients with recent exposure to TB infected individuals exhibiting a negative T-SPOT.TB result should be considered for retesting within 6 weeks or if other relevant clinical symptoms indicate. Results from T-SPOT.TB testing must be used in conjunction with each individual's epidemiological history, current medical status, and results of other diagnostic evaluations. The T-SPOT.TB test is qualitative and results are reported as positive, borderline, or negative, given that the test controls perform as expected. In line with the Centers for Disease Control and Prevention's 2010 recommendation to report quantitative measurements alongside the qualitative result, the laboratory provides spot counts for informational purposes only. The T-SPOT.TB test should not be interpreted as a quantitative test. Performed By: #### 3 [id number] #### [facility] [address] [place], [place] Nursing Educator: Kam Arita M.D.,PhD Lumbar Spine 2 or 3 Viewson 11-11-2024 Lumbar Spine [address] [facility] Imaging Services [address] [place] [id number] Lumbar Spine 2 or 3 Views MR#: [id number] Acct: [id number] Name: MADISYN BARKER Rep #: [id number] : 1955 F 69 From: Preet Mack MD PCP: Dr. Álvaro Jackson, DO Status: DEP AMB Study: Lumbar Spine 2 or 3 Views Date of Exam: Exam# [id number] Ordering Dr: Anabella Styles MD PROCEDURE: LUMBAR SPINE 2 OR 3 VIEWS 11/11/2024 REASON FOR EXAM: S/P LUMBAR FUSION TECHNIQUE: 2 view(s) of the lumbar spine COMPARISON: 09/30/2024 FINDINGS: Status post intervertebral disc spacer, left lateral anchor screw and bilateral posterior fusion L4- 5 again noted appears intact and anatomic. No fracture or malalignment. Persistent rightward curvature lumbar spine. Similar appearance of spondylosis/discoge sussy change L3-4. RAD/Lumbar Spine 2 or 3 Views IMPRESSION: No significant interval change as above. Reading Location: [id number] CC: Dr. Anabella Styles MD; Dr. Álvaro Jackson DO Alteration Inspector: Signed Normal [facility] Orthopedic Visit Reporton Orthopedic Visit Report [facility] [address] [place] [address] OFFICE VISIT Date of Service: 11/11/24 MR#: [id number] Acct: [id number] Name: MADISYN BARKER Rep #: [id number] : 1955 Provider: Dr. Anabella Styles MD Age/Sex: 69/F Location: [facility] [place] Status: Signed Intake Vital Signs 09/02/24 10:01 Height 5 ft 6 in Intake Visit Reasons: LUMBAR SPINE Chief Complaint: 12 week post op Allergies cefdinir Allergy (Verified 11/11/24 10:05) Nausea Penicillins (PCN) Allergy (Verified 11/11/24 10:05) Other Have you fallen in the past year?: No PFSH Medical History Wears glasses Alcohol use Psoriatic arthritis Gastric reflux Former smoker Arthritis Surgical History History of colonoscopy H/O: hysterectomy Social History Smoking Status: Former smoker alcohol intake: current what type of physical activity do you participate in: other details: golf HPI LUMBAR SPINE Details: This documentation accurately reflects the service provided and the decisions made by me, Dr. Anabella Styles MD 11/11/24 1001. Part of today???s visit was documented by Suly NUÑEZ, acting as scribe. MADISYN BARKER is a 69 year old F here today for 12 week post-op, dos: 08/20/24. She states that she is doing well but does have some soreness. She does still have some numbness in her left leg in the calf and in her groin. Ortho Exam General General: Yes no acute distress and Yes well groomed Neurologic: Yes alert and Yes oriented x3 Spine SPINE TESTING CERVICAL THORACIC LUMBAR Musculoskeletal Strength 0=absent - 5=normal Details: Neurological exam of the lower extremities shows 5x5 power. Normal sensations across all dermatomes. Physical examination of the back and belly shows well-healed and dry to surgical incisions. Coding Level of Care Code Global Post Op Diagnoses S/P lumbar fusion Z98.1 Assessment and Plan Assessment and Plan (1) S/P lumbar fusion: Status: Acute Orders: Orders Lumbar Spine 2 or 3 Views Today Z98.1 - Arthrodesis status Plan Patient is here today for 3 month post-op s/p lumbar fusion dos: 08/20/24. I spoke with patient that at this point I will lift all restrictions and may return to what she was doing before surgery. I obtained and reviewed xrays taken today in detail which does show good healing and great placement of the hardware. I do not need to see her at 6 month post-op but I would like to see her at 1 year post-op unless she has an issues before then. I would like her to continue to wear her bone stimulator for another 3 months for 6 months total. Follow up at 1 year post-op or sooner if pain, swelling, numbness or associated symptoms, or concerns develop. All questions answered. Patient in agreement of plan. Clinical Quality Measures Falls Risk Screening/Assistive Devices Have you fallen in the past year?: No 11/11/24 1132 Date Anabella Styles MD Cosigner Signature: Date (if applicable) CC: Dr. Álvaro Jackson DO Normal [facility] Lumbar Spine 2 or 3 Viewson 09-30-2024 Lumbar Spine [address] [facility] Imaging Services [address] [place] [address] Lumbar Spine 2 or 3 Views MR#: [id number] Acct: [id number] Name: MADISYN BARKER Rep #: [id number] : 1955 F 69 From: Cal Magana i, DO PCP: Dr. Álvaro Jackson DO Status: DEP AMB Study: Lumbar Spine 2 or 3 Views Date of Exam: Exam# [id number] Ordering Dr: Etelvina Abraham PROCEDURE: Lumbar spine radiographs, two views 09/30/2024 REASON FOR EXAM: 6 weeks status post lumbar spine fusion TECHNIQUE: AP and lateral views of the lumbar spine were obtained. COMPARISON: 2024 FINDINGS: AP and lateral views of the lumbar spine were obtained. Mild osteopenia. Grade 1 anterolisthesis of L3 relative to L2 and L5 is similar. No acute lumbar vertebral body fracture. Grossly intact bilateral intrapedicular screws and posterior fusion rods at L4 and L5, as well as an L4-5 interbody spacer device are intact. Multilevel degenerative disc and facet disease in the lumbar spine is similar. Similar mild rightward convex curvature mid lumbar spine on the AP view. RAD/Lumbar Spine 2 or 3 Views IMPRESSION: Osteopenia. No acute bony abnormality of the lumbar spine. Similar postoperative appearance at the L4-5 level. Reading Location: [facility] CC: SABINO Sin; Dr. Álvaro Jackson DO Alteration Inspector: Signed Normal [facility] Orthopedic Visit Reporton Orthopedic Visit Report [facility] [address] [place] [address] OFFICE VISIT Date of Service: 09/30/24 MR#: [id number] Acct: [id number] Name: MADISYN ABRKER Rep #: [id number] : 1955 Provider: Dr. Anabella Styles MD Age/Sex: 69/F Location: [facility] [place] Status: Signed Intake Vital Signs 04/03/24 08:31 09/02/24 10:01 Height 5 ft 5 in 5 ft 6 in Intake Visit Reasons: lumbar spine Chief Complaint: 6 week post op Allergies cefdinir Allergy (Verified 09/02/24 09:56) Nausea Penicillins (PCN) Allergy (Verified 09/02/24 09:56) Other Medications ???Medication ???Instructions ???Recorded ???Confirmed ???Type leflunomide 20 mg tablet 20 mg PO DAILY PSORIATIC ARTHRITIS 06/24/22 09/30/24 History guselkumab 100 mg/mL subcutaneous 100 mg subcut Q8W PSORIATIC 12/2709/30/24 History syringe (Tremfya) ARTHRITIS phentermine 37.5 mg tablet 37.5 mg PO QAM WEIGHT LOSS 4 09/30/24 History spironolactone 50 mg tablet 50 mg PO QDAY WATER RETENTION 03/2509/30/24 History duloxetine 30 mg capsule,delayed 30 mg PO DAILY USES FOR BACK 07/0809/30/24 History release cholecalciferol (vitamin D3) 25 25 mcg PO QDAY supplement 08/15/24 09/30/24 History mcg (1,000 unit) capsule Have you fallen in the past year?: No PFSH Medical History Wears glasses Alcohol use Psoriatic arthritis Gastric reflux Former smoker Arthritis Surgical History History of colonoscopy H/O: hysterectomy Social History Smoking Status: Former smoker alcohol intake: current what type of physical activity do you participate in: other details: golf HPI lumbar spine Details: This documentation accurately reflects the service provided and the decisions made by me, Dr. Anabella Styles MD 09/30/24 0951. Part of today???s visit was documented by Suly NUÑEZ, acting as scribe. MADISYN BARKER is a 69 year old F here today for 6 week post op, lumbar spine, dos 08/20/24. Patient states that she is doing very well and denies having any pain. She just finishes up physical therapy yesterday. Patient would like to know if her bone stimulator is helping her and how long she needs to continue to wear it. She currently wears it 2 hours a day everyday. She also would like to know if she needs an antibiotic in the future for dental appointments. Ortho Exam General General: Yes no acute distress Neurologic: Yes alert and Yes oriented x3 Spine SPINE TESTING CERVICAL THORACIC LUMBAR Musculoskeletal Strength 0=absent - 5=normal Details: Neurological exam of the lower extremities shows 5x5 power. Normal sensations across all dermatomes. Physical examination of the back and belly shows well-healed and dry to surgical incisions. Coding Level of Care Code Global Post Op Diagnoses S/P lumbar fusion Z98.1 Assessment and Plan Assessment and Plan (1) S/P lumbar fusion: Status: Acute Orders: Orders Lumbar Spine 2 or 3 Views Today Z98.1 - Arthrodesis status Plan Patient is here today for 6 week post op, lumbar spine, dos 08/20/24. X-rays done during clinic show hardware and bone graft in good position. Patient is doing very well and she has healed very well. I explained today that she can bend,lift and twist but should try to avoid it as much as possible. If she does any minimal bending,lifting, or twisting it can cause some muscle spasms. I do recommend she continue to use the bone stimulator for 6-9 months for at least 2 hours a day. I did obtain and review xrays taken today in detail. I advised her that she doesn't need an antibiotic for dental procedure. I advised patient that when she goes to the gym to work on her exercises she should keep the resistance low less than 15 pounds, until she is 3 months from surgery then from their she can build it up as tolerated. She can ride her bike but I advised her with the handle bars being lower it may cause her ab muscles and back muscles to work harder and create some soreness. She should follow up in another 6 weeks for 3 months post-op Follow up in 6 weeks for 3 months post-op or sooner if pain, swelling, numbness or associated symptoms, or concerns develop. All questions answered. Patient in agreement of plan. Clinical Quality Measures Falls Risk Screening/Assistive Devices Have you fallen in the past year?: No 09/30/24 1023 Date Anabella Polker Signature: Date (if applicable) CC: Dr. Álvaro Jackson, DO Normal [facility] PT D/C Summary (1)on 025 PT D/C Summary (1) [facility] Physical Therapy Health[address] [place] [address] / REHABILITATION SERVICES DISCHARGE SUMMARY MR#: [id number] Acct: [id number] Name: MADISYN BARKER Rep #: [id number] : 1955 69 From: Micha Solomon PT, Cert. T, OCS Referring Dr.: SABINO Sin Status: REG RCR Insurance: MEDICARE PART A B MEDICARE SUPPLEMENT PLAN Discharge Summary D/C summary: It has been my pleasure to treat MADISYN BARKER referred by SABINO Sin, with the diagnosis of S/P ARTHRODESIS for a total of 9 visit(s). Discharge Date: 09/29/24 Please see the following information for a summary of their discharge status. Subjective Subjective: Doing well RTD 09/30/24 Pain low back: Pain Intensity (Out of 10): 0 Overall Improvement % Improvement: 100 Objective Objective/Function: POSTURE:WFL GAIT: reciprocal pattern SKIN: well approximate NEURO: denies paresthesia/tinglin g ,reflexes intact reflexes L3-4,L4-5,L5-S1 2/3 FLEXABILITY: hamstrings WFL MMT: quads/hams/hip 4/5 ,ankle 5/5 LUMBAR ROM: flexionWFL ,extension mod loss ,side glidesMIN loss Goals Goal 1:: Patient to be I with HEP for back Goal Progress: Goal Met Goal 2:: Patient to improve lumbar ROM for function of recovery to put on shoes Goal Progress: Goal Met Goal 3:: Patient to improve back oswestry score by 5 points to improve QOL and function Goal Progress: Goal Met Goal 4:: Patient to demonstrate 80% improvement with improve function and return to all functional tasks. Goal Progress: Goal Met Plan Plan: D/C TO HEP D/C Information d/c sentence: If there are questions or concerns regarding this patient's physical therapy, please feel free to call me at [phone]. Thank you for the referral of this patient. Sincerely, Micha Solomon PT, Cert T, OCS Balance/Gait/Functi onal tests Balance/Special Test Scores Oswestry Low Back Score: 1 Improvement % Improvement: 100 09/29/24 1056 CC: SABINO Sin; Dr. Álvaro Jackson, JLA Signed Normal [facility] Inital Evaluation (1) - PTon 09-03-2024 Inital Evaluation (1) - PT [facility] Physical Therapy [facility] [address] [place] [address] [address] [place] [address] / REHABILITATION SERVICES INITIAL EVALUATION MR#: [id number] Acct: [id number] Name: MADISYN BARKER Rep #: [id number] : 1955 69 From: Micha Solomon PT Cert. MD Andujar, OCS Referring Dr.: SABINO Sin Status: REG RCR Insurance: MEDICARE PART A B MEDICARE SUPPLEMENT PLAN Patient's Visit Information Visit Information Visit Information: MADISYN BARKER is a 69 year old F referred to Physical Therapy by SABINO Sin with a diagnosis of S/P ARTHRODESIS. Date of Evaluation: 09/03/24 Physical Therapist: Micha Solomon PT, Cert MDT, OCS Visit Plan Frequency: 2x /Week Duration: 4 Weeks Plan: S/P LUMBAR FUSION L4-5 oblique lumbar interbody fusion on 08/20/24 NO BLT ,AND LIFTING RESTRICTION UP TO 10 # NEXT 2 WEEKS PT INTERVENTIONS DLS ,POSTURAL EX'S ,LE STRENGTHENING ,ACTIVITY MODIFICATION AND POSTURE/BODY MECHANICS TRAINING Subjective Subjective: This 69 y/o male presents to physical therapy with s/p lumbar fusion L4-5 oblique lumbar interbody fusion on 08/20/24 [facility] by DR Styles. Patient d/c next day . No bending/lifting /twisting. Patient was d/c with bone stimulator 2 hours /day .Patient seen PA yesterday x-rays looked good. MRI showed Multilevel degenerative changes in the lumbar spine, worse at L4-5 resulting in severe spinal canal stenosis and severe left as well as moderate right neural foraminal narrowing. Indeterminate degree of intrathecal nerve root impingement at this level. Otherwise, at this level, there is left L4 and bilateral L5 nerve root impingement. Pain medication percocet and muscle relaxer as needed. Patient had prior PT prior to surgery. Patient has no pain. Denies paresthesia/tinglin g-. Bowel/bladder -. Patient pain not affects sleeping . Coughing/sneezing-. Bowel /bladder-. Patient affects QOL and function. Patient goals to return to normal. RTD in 1 month SOCIAL: VOCATION: retired Objective Objective: POSTURE:WFL GAIT: reciprocal pattern SKIN: incision well approximate NEURO: denies paresthesia/tinglin g ,reflexes intact reflexes L3-4,L4-5,L5-S1 2/3 FLEXABILITY: hamstrings WFL MMT: quads/hams/hip 4/5 ,ankle 5/5 LUMBAR ROM: flexion mod loss ,extension mod loss ,side glides mod loss Special Tests L/S Slump test left side: Negative L/S Slump test right side: Negative L/S Left Straight Leg Raise: Negative L/S Right Straight Leg Raise: Negative Balance/Special Test Scores Oswestry Low Back Score: 9 Goals Goal 1:: Patient to be I with HEP for back Goal Time Frame: 4-6 Weeks Goal 2:: Patient to improve lumbar ROM for function of recovery to put on shoes Goal Time Frame: 4-6 Weeks Goal 3:: Patient to improve back oswestry score by 5 points to improve QOL and function Goal Time Frame: 4-6 Weeks Goal 4:: Patient to demonstrate 80% improvement with improve function and return to all functional tasks. Goal Time Frame: 4-6 Weeks Rehabilitation Potential Physical Therapy Diagnosis: Patient lumbar s/p lumbar fusion L4-5 oblique lumbar interbody fusion on 08/20/24. Patient doing well . Patient has limitations with decrease lumbar ROM ,weakness impairs gait and function thus benefit from skilled PT Rehabilitation Potential: Good Anticipated Interventions Patient/Client Instruction: Educate patient on: Condition and Plan of Care For the Purpose of:: To decrease pain, To increase ROM, To improve muscle performance and motor function, To improve ability to perform ADL's, To increase tolerance to activity/condition/ position, To improve ability of physical actions for home/community/work /leisure, To improve health of tissue, To decrease soft tissue restriction, To increase flexibility/ROM and To improve tolerance to ADL's Therapeutic Exercise to Include: Strength training, Body mechanics, Postural training and Dynamic Lumbar Stabilization For the Purpose of:: To decrease pain, To improve muscle performance and motor function, To improve ability to perform ADL's, To increase tolerance to activity/condition/ position, To improve ability of physical actions for home/community/work /leisure, To improve gait and locomotor functions, To increase flexibility/ROM, To reduce risk of recurrence and To improve tolerance to ADL's Text: Thank you for the opportunity to evaluate your patient. For Medicare and Medicare HMO plans, please review the plan of care and approve it. It will need to be FAXED BACK to us at [phone] for Medicare purposes. For Medicare only, by signing this I certify the plan of care. Please let me know if there are questions or concerns regarding this plan of care. Physician Signature: __Date: 09/03/24 0188 CC: SABINO Sin; Dr. Álvaro East (more content not included)... Normal [facility] Lumbar Spine 2 or 3 Viewson 2024 Lumbar Spine [address] [facility] Services [address] [place] [address] Lumbar Spine 2 or 3 Views MR#: [id number] Acct: [id number] Name: MADISYN BARKER Rep #: [id number] : 1955 F 69 From: Álvaro Albarado MD PCP: Dr. Álvaro Jackson DO Status: DEP AMB Study: Lumbar Spine 2 or 3 Views Date of Exam: Exam# [id number] Ordering Dr: Etelvina Abraham EXAM: XR Lumbosacral Spine, 2 or 3 Views CLINICAL INDICATION: S/P FUSION TECHNIQUE: Frontal and lateral views of the lumbar spine and sacrum. COMPARISON: No relevant prior studies available. FINDINGS: VERTEBRAE: Degenerative facet arthropathy throughout the lumbar spine, most prominent in the lower lumbar spine. No acute fracture. Normal alignment. SACRUM/COCCYX: Unremarkable as visualized. No acute fracture. DISC SPACES: Posterior fusion of L4-5 with disc spacers. Intact hardware. Anatomic position. Degenerative disc disease throughout the lumbar spine. SOFT TISSUES: Unremarkable. RAD/Lumbar Spine 2 or 3 Views IMPRESSION: 1. Postoperative changes as above. 2. Degenerative changes lumbar spine as described. [facility] CC: SABINO Sin; Dr. Álvaro Jackson DO Alteration Inspector: Signed Normal [facility] Orthopedic Visit Reporton Orthopedic Visit Report [facility] [address] [place] [id number] OFFICE VISIT Date of Service: 09/02/24 MR#: [id number] Acct: [id number] Name: MADISYN BARKER Rep #: [id number] : 1955 Provider: SABINO Sin Age/Sex: 69/F Location: [facility] [place] Status: Signed Intake Vital Signs 04/03/24 08:31 08/20/24 15:46 09/02/24 09:55 Height 5 ft 5 in 5 ft 6 in 5 ft 6 in Weight: 171 lb BMI 27.6 Intake Visit Reasons: lumbar spine Chief Complaint: 2 week post op Accompanied by: Sister Is patient in pain?: No Allergies cefdinir Allergy (Verified 09/02/24 09:56) Nausea Penicillins (PCN) Allergy (Verified 09/02/24 09:56) Other Medications ???Medication ???Instructions ???Recorded ???Confirmed ???Type leflunomide 20 mg tablet 20 mg PO DAILY PSORIATIC ARTHRITIS 06/24/22 09/02/24 History guselkumab 100 mg/mL subcutaneous 100 mg subcut Q8W PSORIATIC 12/2709/02/24 History syringe (Tremfya) ARTHRITIS phentermine 37.5 mg tablet 37.5 mg PO QAM WEIGHT LOSS 4 09/02/24 History spironolactone 50 mg tablet 50 mg PO QDAY WATER RETENTION 03/2509/02/24 History duloxetine 30 mg capsule,delayed 30 mg PO DAILY USES FOR BACK 07/0809/02/24 History release cholecalciferol (vitamin D3) 25 25 mcg PO QDAY supplement 08/15/24 09/02/24 History mcg (1,000 unit) capsule meloxicam 15 mg tablet 15 mg PO DAILY 30 days #30 tabs 09/02/24 Rx sennosides 8.6 mg-docusate sodium 2 tab PO BID PRN constipation #30 08/21/24 09/02/24 Rx 50 mg tablet (Stimulant Laxative tabs Plus) hydrocodone-acetami nophen 5-325mg 1 tab PO Q6H PRN pain 7 days #28 09/02/24 09/02/24 Rx 5mg-325mg tabs methocarbamol 500 mg tablet 750 mg (1.5 x 500 mg) PO TID PRN 0 09/02/24 09/02/24 Rx Pain/spasms 7 days #30 tabs Have you fallen in the past year?: No PFSH Medical History Wears glasses Alcohol use Psoriatic arthritis Gastric reflux Former smoker Arthritis Surgical History History of colonoscopy H/O: hysterectomy Social History (Reviewed 09/02/24 @ 09:57 by [place] Smoking Status: Former smoker alcohol intake: current what type of physical activity do you participate in: other details: golf HPI lumbar spine Details: This documentation accurately reflects the service provided and the decisions made by me, SABINO Sin 09/02/24 0955. Part of today???s visit was documented by Prieto Foreman MA, acting as scribe. MADISYN BARKER is a 69 year old F here today for 2 week post op L4-5 posterior spinal fusion. Patient is a little bit sore, she can tell that she has incisions. She stated that she doesn't need to go to physical therapy per doctor. She has been putting ice on her back, but quit doing that about a week ago. Says that before the surgery she had a lot of pain going down her legs especially when walking. Currently she says that this pain has not resolved. Yesterday she did note that she had a left sided groin and leg pain which prompted her to take a hydrocodone which then resolved the pain. She denies any other issues. She wishes for refill of the methocarbamol and hydrocodone acetaminophen. Ortho Exam General General: Yes no acute distress Neurologic: Yes alert and Yes oriented x3 Spine SPINE TESTING CERVICAL THORACIC LUMBAR Musculoskeletal Strength 0=absent - 5=normal Details: Neurological exam of the lower extremities shows 5x5 power. Normal sensations across all dermatomes. Physical examination of the back and belly shows well-healed and dry to surgical incisions. Coding Level of Care Code Global Post Op Diagnoses S/P lumbar fusion Z98.1 Assessment and Plan Assessment and Plan (1) S/P lumbar fusion: Status: Acute Orders: Orders Lumbar Spine 2 or 3 Views Today Z98.1 - Arthrodesis status Referrals Physical Therapy Referral Z98.1 - Arthrodesis status Medications: Refilled methocarbamol 750 mg (1.5 x 500 mg) PO TID 7 days PRN 30 tabs 0RF Pain/spasms hydrocodone-acetami nophen 5-325 mg 1 TAB PO Q6H 7 days PRN 28 tabs 0RF pain Z98.1 - Arthrodesis status Plan Obtained and reviewed x-rays today in the clinic. Independent interpretation of the x-rays was performed. X-rays show hardware and bone graft in good position. Patient is now 2 weeks postop L4-5 lumbar fusion. The patient is doing extremely well postsurgically with her pain well-managed and with a improvement of her presurgical pain. She is ready to start outpatient physical therapy at [facility]. Discussed restrictions such as no bending, lifting, twisting until 3 months postop. Patient says she (more content not included)... Normal [facility] BUN/creatinine ratioOrdered By: Anabellamari Styles on 08-21-2024 Urea nitrogen/Creatinine [Mass ratio] 25.4 mg/mg High 10-20 [facility] Basic Metabolic Profile (BMP )on 08-21-2024 Anion gap [Moles/Vol] 11 mmol/L Normal 5-15 [facility] Comment on above: Performed By: #### L 500.2500 #### [facility] Laboratory [address] [place], [address] BUN/CRE 25.4 RATIO High - [facility] Comment on above: Performed By: #### L 500.2500 #### [facility] [address] [place], [address] Calcium [Mass/Vol] 8.9 mg/dL Normal 7.6-11.0 [facility] Comment on above: Performed By: #### L 500.2500 #### [facility] [address] [place], [address] Chloride [Moles/Vol] 101 mmol/L Normal 96-108 [facility] Comment on above: Performed By: #### L 500.2500 #### [facility] [address] [place], [address] CO2 [Moles/Vol] 22.6 mmol/L Normal 22.0-29.0 [facility] Comment on above: Performed By: #### L 500.2500 #### [facility] [address] [place], [address] Creatinine [Mass/Vol] 0.6 mg/dL Normal 0.6-1.0 [facility] Comment on above: Performed By: #### L 500.2500 #### [facility] [address] [place], [address] ECRCL 70.22 ml/min Normal [facility] Comment on above: Performed By: #### L 500.2500 #### [facility] [address] [place], [address] GFR/1.73 sq M.predicted among non-blacks MDRD (S/P/Bld) [Vol rate/Area] 99 mL/min/{1.73_m2} Normal >60 [facility] Comment on above: Result Comment: mL/m in/1.73m2 CKD-EPI Creatinine Equation (2020) Performed By: #### L 500.2500 #### [facility] [address] [place], [address] Glucose [Mass/Vol] 148 mg/dL High 70-99 [facility] Comment on above: Performed By: #### L 500.2500 #### [facility] [address] [place], [address] Potassium [Moles/Vol] 3.9 mmol/L Normal 3.3-5.1 [facility] Comment on above: Performed By: #### L 500.2500 #### [facility] [address] [place], [address] Sodium [Moles/Vol] 135 mmol/L Normal 133-145 [facility] Comment on above: Performed By: #### L 500.2500 #### [facility] [address] [place], [address] Urea nitrogen [Mass/Vol] 15 mg/dL Normal 4-19 [facility] Comment on above: Performed By: #### L 500.2500 #### [facility] [address] [place], [address] CBC-Complete Blood Cnt No Di ffon 08-21-2024 Erythrocyte distribution width (RBC) [Ratio] 13.2 % Normal 11.6-14.6 [facility] Comment on above: Performed By: #### L 100.0500 #### [facility] [address] [place], [address] Hematocrit (Bld) [Volume fraction] 34.9 % Low 37-47 [facility] Comment on above: Performed By: #### L 100.0500 #### [facility] [address] [place], [address] Hemoglobin (Bld) [Mass/Vol] 11.3 g/dL Low 12.0-15.0 [facility] Comment on above: Performed By: #### L 100.0500 #### [facility] [address] [place], [address] MCH (RBC) [Entitic mass] 31.9 pg Normal 27.0-32.0 [facility] Comment on above: Performed By: #### L 100.0500 #### [facility] [address] [place], [address] MCHC (RBC) [Mass/Vol] 32.4 g/dL Normal 32-36 [facility] Comment on above: Performed By: #### L 100.0500 #### [facility] [address] [place], [address] MCV (RBC) [Entitic vol] 98.6 fL Normal 81-99 [facility] Comment on above: Performed By: #### L 100.0500 #### [facility] [address] [place], [address] Platelet mean volume (Bld) [Entitic vol] 11.1 fL Normal 6.2-12.0 [facility] Comment on above: Performed By: #### L 100.0500 #### [facility] [address] [place], [address] Platelets (Bld) [#/Vol] 274 10*3/uL Normal 150-450 [facility] Comment on above: Performed By: #### L 100.0500 #### [facility] [address] [place], [address] RBC (Bld) [#/Vol] 3.54 10*6/uL Low 4.2-5.4 [facility] Comment on above: Performed By: #### L 100.0500 #### [facility] [address] [place], [address] RDW SD 48.3 fl High 35.1-43.9 [facility] Comment on above: Performed By: #### L 100.0500 #### [facility] [address] [place], [address] WBC (Bld) [#/Vol] 12.9 10*3/uL High 4.4-11.0 [facility] Comment on above: Performed By: #### L 100.0500 #### [facility] [address] [place], [address] Carbon dioxide measurementOr dered By: Anabella Styles on 08-21-2024 CO2 [Moles/Vol] 22.6 mmol/L 22.0-29.0 [facility] Chloride measurementOrdered By: Anabella Styles on 08-21-2024 Chloride [Moles/Vol] 101 mmol/L 96-108 [facility] Creatinine [Moles/Vol]Ordere d By: Anabella Styles on 08-21-2024 Creatinine [Mass/Vol] 0.6 mg/dL 0.6-1.0 [facility] Erythrocyte distribution wid th (RBC) [Ratio]Ordered By: Anabella Styles on 08-21-2024 Erythrocyte distribution width (RBC) [Entitic vol] 48.3 fL High 35.1-43.9 [facility] Erythrocyte distribution wid th ratioOrdered By: Anabella Styles on 08-21-2024 Erythrocyte distribution width (RBC) [Ratio] 13.2 % 11.6-14.6 [facility] Erythrocyte distribution wid th standard deviationOrdered By: Anabella Styles on 08-21-2024 Erythrocyte distribution width (RBC) [Ratio] 48.3 fl High 35.1-43.9 [facility] Estimation of creatinine marek aranceOrdered By: Anabella Styles on 08-21-2024 Estimated Creatinine Clearance Calc 70.22 ml/min [facility] GFR/1.73 sq M.predicted cuba g non-blacks MDRD (S/P/Bld) [Vol rate/Area]Ordered By: Anabella Styles on 08-21-2024 Estimated GFR (MDRD) Non-Af Amer 99 >60 [facility] Comment on above: mL/min/1.73m2 CKD-EP I Creatinine Equation (2020) Glomerular filtration rate ( GFR) estimation/1.73 sq m using serum, plasma, or whole bOrdered By: Anabella Styles on 08-21-2024 GFR/1.73 sq M.predicted among non-blacks MDRD (S/P/Bld) [Vol rate/Area] 99 mL/min/{1.73_m2} >60 [facility] Comment on above: mL/min/1.73m2 CKD-EP I Creatinine Equation (2020) Hematocrit Auto (Bld) [Volum e fraction]Ordered By: Anabella Styles on 08-21-2024 Hematocrit (Bld) [Volume fraction] 34.9 % Low 37-47 [facility] Hemoglobin measurementOrdere d By: Anabella Styles on 08-21-2024 Hemoglobin (Bld) [Mass/Vol] 11.3 g/dL Low 12.0-15.0 [facility] Lumbar Spine 2 or 3 Viewson 08-21-2024 Lumbar Spine 2 [address] [facility] Imaging Services [address] [place] [address] Lumbar Spine 2 or 3 Views MR#: [id number] Acct: [id number] Name: MADISYN BARKER Rep #: [id number] : 1955 F 68 From: Rey Llanos i, MD PCP: Dr. Álvaro Jackson, DO Status: ADM IN Study: Lumbar Spine 2 or 3 Views Date of Exam: Exam# [id number] Ordering Dr: Anabella Styles MD PROCEDURE: LUMBAR SPINE 2 OR 3 VIEWS REASON FOR EXAM: Status post lumbar fusion. TECHNIQUE: 2 view(s) of the lumbar spine COMPARISON: Imaging from the OR dated 08/20/2024 at 10:22 a.m. FINDINGS: Status post L4-L5 posterior lumbar fusion with intervertebral body spacer at L4-5. There is normal lumbar lordosis. Vertebral heights are otherwise well-maintained. No definite acute fracture or dislocation is present. Bowel gas pattern is unremarkable. RAD/Lumbar Spine 2 or 3 Views IMPRESSION: Postsurgical changes as described above. Reading Location: [id number] CC: Dr. Anabella Styles MD; Dr. Álvaro Jackson DO Alteration Inspector: Signed Normal [facility] MCV (mean corpuscular volume ) determinationOrdered By: Anabella Styles on 08-21-2024 MCV (RBC) [Entitic vol] 98.6 fL 81-99 [facility] Mean corpuscular hemoglobin (MCH) determinationOrdered By: Anabella Styles on 08-21-2024 MCH (RBC) [Entitic mass] 31.9 pg 27.0-32.0 [facility] Mean corpuscular hemoglobin concentration (MCHC) determinationOrdered By: Anabella Styles on 08-21-2024 MCHC (RBC) [Mass/Vol] 32.4 g/dL 32-36 [facility] Mean platelet volume determi nationOrdered By: Anabella Styles on 08-21-2024 Platelet mean volume (Bld) [Entitic vol] 11.1 fL 6.2-12.0 [facility] Platelet countOrdered By: Samreen Styles on 08-21-2024 Platelets (Bld) [#/Vol] 274 10*3/uL 150-450 [facility] RBC Auto (Bld) [#/Vol]Ordere d By: Anabella Styles on 08-21-2024 RBC (Bld) [#/Vol] 3.54 10*6/uL Low 4.2-5.4 [facility] Serum glucose measurement (m ass/volume)Ordered By: Anabella Styles on 08-21-2024 Glucose [Mass/Vol] 148 mg/dL High 70-99 [facility] Serum or plasma anion gap de termination (moles/volume)Ordered By: Anabella Styles on 08-21-2024 Anion gap [Moles/Vol] 11 mmol/L 5-15 [facility] Serum or plasma calcium martin urement (mass/volume)Ordered By: Anabella Styles on 08-21-2024 Calcium [Mass/Vol] 8.9 mg/dL 7.6-11.0 [facility] Serum or plasma creatinine m easurement (moles/volume)Ordered By: Anabella Styles on 08-21-2024 Creatinine [Moles/Vol] 0.6 mg/dL 0.6-1.0 [facility] Serum or plasma potassium me asurementOrdered By: Anabella Styles on 08-21-2024 Potassium [Moles/Vol] 3.9 mmol/L 3.3-5.1 [facility] Serum or plasma sodium measu rement (moles/volume)Ordered By: Anabelal Styles on 08-21-2024 Sodium [Moles/Vol] 135 mmol/L 133-145 [facility] Serum or plasma urea nitroge n measurement (mass/volume)Ordered By: Anabella Styles on 08-21-2024 Urea nitrogen [Mass/Vol] 15 mg/dL 4-19 [facility] White blood cell (WBC) count Ordered By: Anabella Styles on 08-21-2024 WBC (Bld) [#/Vol] 12.9 10*3/uL High 4.4-11.0 [facility] Bedside Glucoseon 08-20-2024 FINGERSTICK GLU 105 mg/dL Normal 74-106 [facility] Comment on above: Result Comment: REYNA GEMENT OF PATIENT CARE PER NURSING PROTOCOL Performed By: #### L 501.080 ####[facility] [address] [place], [place], [id number] Glucose measurement at [facility] deOrdered By: Anabella Styles on 08-20-2024 Bedside Glucose (Misc Panel) 105 mg/dL 74-106 [facility] Comment on above: MANAGEMENT OF PATIEN T CARE PER NURSING PROTOCOL Glucose [Mass/Vol] 105 mg/dL 74-106 [facility] Comment on above: MANAGEMENT OF PATIEN T CARE PER NURSING PROTOCOL MR/POSTOP.ANEon 08-20-2024 MR/POSTOP.[facility] Medical Records Department [address] [place] [address] Anesthesia Postop Eval I 08/20/24 1100 MR#: [id number] Acct: [id number] Name: MADISYN BARKER Rep #: [id number] : 1955 68 From: Jemima Pope CRNA PCP: Dr. Álvaro Jackson, DO Status:ADM IN Y Race: C Location: [place] [address] Anesthesia: Postop Eval I Current Vital Signs Temperature: 97.1 F Pulse Rate: 84 Blood Pressure: 128/87 Respiratory Rate: 16 Pulse Ox: 100 Oxygen Delivery Method: Simple Mask Oxygen Flow Rate (L/min): 6 Assessment Airway patent: Yes Spontaneous unlabored respirations: Yes Mental status: Awake and Calm nausea: No Vomiting: No Anesthesia Complication: No Fluid Hydration Crystalloid volume administer (ml): 1,600 Total IV fluid infused: 1,600 Progress Note Anesthesia document: Postop Eval 1 completed: Yes 08/20/24 1101 Date Jemima Pope QUALITY CONTROL PROJECTIONIST Cosigner Signature: Date CC: Signed Normal [facility] MR/RFMDTEHM3pt 08-20-2024 [facility] Medical Records Department [address] [address] Anesthesia Postop Eval II 08/20/24 1526 MR#: [id number] Acct: [id number] Name: MADISYN BARKER Rep #: [id number] : 1955 68 From: Asher Reyes MD PCP: Dr. Álvaro Jackson, DO Status:ADM IN Y Race: C Location: MS3 CK343-1 Anesthesia Postop Eval I Sum Postop Eval Completion status Anesthesia document: Postop Eval 1 completed: Yes Anesthesia Postop Eval I Summary Anesthesia Postop Eval I Summary: Anesthesia Postop Eval I: Assessment Summary Airway patent Yes 08/20/24 11:01 QUALITY CONTROL PROJECTIONIST.SKOBY Spontaneous unlabored Yes 08/20/24 11:01 QUALITY CONTROL PROJECTIONIST.SKOBY respirations Mental status Awake,Calm 08/20/24 11:01 QUALITY CONTROL PROJECTIONIST.SKOBY nausea No 08/20/24 11:01 QUALITY CONTROL PROJECTIONIST.SKOBY Vomiting No 08/20/24 11:01 QUALITY CONTROL PROJECTIONIST.SKOBY Anesthesia Postop Eval I: Fluid Summary Crystalloid volume administer 1,600 08/20/24 11:01 QUALITY CONTROL PROJECTIONIST.SKOBY (ml) Colloids volume administered ( ml) Blood Product volume administered (ml) Total IV fluid infused 1,600 08/20/24 11:01 QUALITY CONTROL PROJECTIONIST.SKOBNikky Anesthesia Postop Eval I: Summary Notes Anesthesia Complication No 08/20/24 11:01 QUALITY CONTROL PROJECTIONIST.SKOBY Anesthesia Complication Comment: Post-operative progress note Anesthesia: Postop Eval II Evaluation Mental status: Awake and Calm Pain Level: 5 nausea: No Vomiting: No Complications Anesthesia Complication: No 08/20/24 1526 Date Asher Reyes MD Cosigner Signature: Date CC: Signed Normal [facility] Operative Reporton 5 Operative Report [facility] Medical Records Department [address] [place] [address] Operative Report 08/20/24 1052 MR#: [id number] Acct: [id number] Name: MADISNY BARKER Rep #: [id number] : 1955 68 From: Anabella Styles MD PCP: Dr. Álvaro Jackson, DO Status:ADM IN Location: [facility] AC-TBA-1 Procedures Musculoskeletal 20xxx-29xxx: Other Procedure See Report Operative Report (Standard) Operative Information Date of Procedure: 08/20/24 Pre-Operative Diagnosis: L4-5 spondylolisthesis, stenosis with neurogenic claudication Post-Operative Diagnosis: Same Surgery/Procedure Performed: L4-5 posterior spinal instrumented fusion heel seat sander: Yes Corporate Coordinator: jorge a Tasks completed by material assistant: Closing, Hemostasis: Electrocautery and Retracting Type of Anesthesia: General RN Documented Start/Stop Times: Operation Date: 08/20/24 07:30 Case Time Into Pre-Op 08/20/24 05:36 Out of Pre-Op 08/20/24 07:32 Anesthesia Start 08/20/24 07:35 Into Room 08/20/24 07:35 Procedure Start 08/20/24 08:11 Procedure End 08/20/24 10:43 Procedure Start Time: 08:11 Procedure Stop Time: 10:43 Select all DRAINS/GRAFTS/IMPLA NTS that apply: Graft Graft details: Allograft cancellous bone chips and Implanted device Implanted device details: DePuy Viper prime pedicle screw instrumentation Estimated Blood Loss: 100 cc Specimen collected: No Description of surgery: Preoperative diagnosis: L4-5 spondylolisthesis, stenosis with neurogenic claudication Postoperative diagnosis: Same Name of procedures: L4-5 posterior percutaneous pedicle screw instrumented fusion, prone: ??? L4-5 posterior spinal fusion 79906 ??? L4-5 posterior pedicle screw instrumentation 70900 ??? Allograft cancellous chips 70363 Attending Surgeon: Dr. Anabella Styles Estimated blood loss: 100 mL (total for entire case) Anesthesia: General Complications: None Description of procedure: After the anterior procedure was complete, the patient was then turned supine. The patient was then transferred to Dakota table in prone position. Back was prepped and draped in usual fashion. C-arm AP view was then taken. C-arm was positioned in a way that L4 was centralized and superior endplate of was parallel to the beam. Spinous process was centered between the pedicles. Midline was marked with skin marker and lateral borders of the pedicles were also marked. Skin marker was also utilized to álvaro transversely across the middle of the pedicles at L4. 2 longitudinal paramedian incisions of 1 inch were placed. The fascia was incised vertically. Finger dissection was utilized to palpate the transverse process and facet joint. Viper Prime screws with towers were inserted and docked onto the transverse processes. This was then slowly moved medially to reach the superior articular process of L4. This was then confirmed on C-arm and then a mallet was utilized to drive the trocar into the pedicle going up to the medial wall of the pedicle on AP view. This was performed both sides. C-arm lateral view confirmed that the tip of the trocar was in the vertebral body, and the screw was advanced into the pedicle and vertebral body. This was repeated similarly at L5 bilaterally. Screw sizes were 7 x 50 mm at L4 and L5 on both sides. 45 mm precontoured titanium 5.5 mm lordotic franci on the right and 50 mm on the left were then passed through the screw extensions and reduced down to the screws with the help of [employer]ix[employer] instrumentation system on both sides. AP and lateral view of the C-arm showed good positioning of the screws and cages. Final tightening with the torque screwdriver was then completed. Vanessa was utilized to roughen the facet joint at L4-5 on the right side. Cancellous allograft bone chips mixed with bone marrow aspirate were then placed over this decorticated area. Hemostasis was achieved. Closure was done in layers with 0 Vicryls for the fascia, 2-0 Vicryls for the subcutaneous tissue, and Monocryl for the skin. Dermabond was applied. Dressings were applied covered with Tegaderm. The patient was then turned supine onto a hospital bed. The patient was extubated and taken to PACU in stable condition. The patient tolerated the procedure well and no complications occurred. Depuy Friendship cage Viper Prime minimally invasive pedicle screw instrumentation system was utilized in this case. No dural tear was identified intraoperatively. I was present for the entirety of the case and performed the surgery. Surgical Findings: See operative note Complications Complications: No 08/20/24 1055 Cosigner Signature (if applicable): CC: Dr. Anabella Styles MD; Dr. Álvaro Jackson DO Signed Normal [facility] Operative Report [facility] Medical Records Department [address] [place] [address] Operative Report 08/20/24 1046 MR#: [id number] Acct: [id number] Name: MADISYN BARKER Rep #: [id number] : 1955 68 From: Anabella Styles MD PCP: Dr. Álvaro Jackson, DO Status:ADM IN Location: [facility] AC-TBA-1 Procedures Musculoskeletal 20xxx-29xxx: Other Procedure See Report Operative Report (Standard) Operative Information Date of Procedure: 08/20/24 Pre-Operative Diagnosis: L4-5 spondylolisthesis, stenosis with neurogenic claudication Post-Operative Diagnosis: Same Surgery/Procedure Performed: L4-5 oblique lumbar interbody fusion heel seat sander: Yes Corporate Coordinator: jorge a Tasks completed by material assistant: Closing, Hemostasis: Electrocautery and Retracting Type of Anesthesia: General RN Documented Start/Stop Times: Operation Date: 08/20/24 07:30 Case Time Into Pre-Op 08/20/24 05:36 Out of Pre-Op 08/20/24 07:32 Anesthesia Start 08/20/24 07:35 Into Room 08/20/24 07:35 Procedure Start 08/20/24 08:11 Procedure End 08/20/24 10:43 Procedure Start Time: 08:11 Procedure Stop Time: 10:43 Select all DRAINS/GRAFTS/IMPLA NTS that apply: Graft Graft details: Allograft cancellous bone chips, autologous bone marrow aspirate and Implanted device Implanted device details: DePuy cougar lateral lumbar interbody cage???peek Estimated Blood Loss: 100 cc Specimen collected: No Description of surgery: Preoperative diagnosis: L4-5 spondylolisthesis, stenosis with neurogenic claudication, facet synovial cyst Postoperative diagnosis: Same Name of procedures L4-5 oblique lumbar interbody fusion (OLIF), minimally invasive left sided approach, lateral decubitus: ??? L4-5 anterolateral spinal fusion 53330 ??? L4-5 insertion of cage 31609 ??? Bone graft aspirate left iliac crest separate incision ??? Allograft cancellous chips Attending Surgeon: Dr. Anabella Styles Estimated blood loss: 100 mL Anesthesia: General Complications: None Indications: Patient is a 68-year-old pleasant lady who has had a long history of low back pain and left worse than right lower extremity radiation, difficulty walking distances. Xrays MRI revealed L4-5 spondylolisthesis with stenosis with facet synovial cyst. All surgical options were discussed with the patient including anterior and posterior approaches. All risks and benefits associated with the procedure were explained to the patient. The risks include but are not limited to infection, bleeding, injury to nerves and vessels including major vessels like IVC and aorta, persistent paresthesia, persistent pain, dural tear, need for further procedures, adjacent segment degeneration, pseudoarthrosis, hardware failure, retrograde ejaculation, paralytic ileus, etc. Procedure: The patient was identified in the preoperative holding suite using Unique patient identifiers. Skin was marked, consent was reviewed, and all questions were answered. The patient was then brought back to the operative room. A surgical timeout was performed to make sure correct procedure was being done on the correct patient and all operative room staff were on the same page. General endotracheal anesthesia was then given to the patient. Diaz catheter was inserted. The patient was then carefully positioned in right lateral decubitus position with the left side up on a regular OR table. Axillary roll was placed and all bony prominences were well- padded. Hip positioners were placed in the posterior buttocks and anterior sternal area. The surgical area was prepped and draped in usual fashion. Preoperative antibiotic was injected IV as preoperative antibiotic. A final timeout was then again done just before starting the procedure. A 2 inch incision oblique was taken in the left lower quadrant of the abdomen 2 fingerbreadths away from the iliac crest and the lower ribs. Sharp dissection with Bovie was carried out up to the fascia covering the external oblique. The external oblique, internal oblique and transversus abdominis muscles were split along the muscle fibers and retroperitoneal space was entered. Sponge sticks were utilized to move the bowel and peritoneum rnu-vu-yks-way and psoas muscle was exposed staying within the retroperitoneal plane. Xeebelframe retractor system was positioned and the retractor blade was applied onto the psoas. The interval between psoas and midline structures was developed and appropriate retractors were placed. Once adequate interval was cleared, a disc space was identified and a marker x-ray was taken. This identified the L4-5 disc level. Annulotomy was done with a long handled knife. Pituitary was used to remove disc material. Curettes were used to prepare the endplates. Disc space spreaders were utilized to distract and increase the disc height. N (more content not included)... Normal [facility] Spine 1 View Any Levelon Spine 1 View Any Level [facility] Imaging Services [address] [place] [address] Spine 1 View Any Level MR#: [id number] Acct: [id number] Name: MADISYN BARKER Rep #: [id number] : 1955 F 68 From: Landy Nobles MD PCP: Dr. Álvaro Jackson DO Status: ADM IN Study: Spine 1 View Any Level Date of Exam: 08/20/24 Exam# [id number] Ordering Dr: Anabella Styles MD PROCEDURE: SPINE 1 VIEW ANY LEVEL REASON FOR EXAM: Fusion at L4-L5. TECHNIQUE: Intraoperative views of the lumbar spine were obtained. COMPARISON: None. FINDINGS: A total of 8 images were recorded. Total fluoroscopy time is 77 0.8 seconds. Dose is 34.96 mGy. The imaged show intraoperative localization. On the 1st image, the forceps point to the L4-L5 disc space. The final images show transpedicular screws at L4 and L5 with vertical interlocking rods, a additional screw in the lower aspect of the L4 region, and interbody graft at L4-L5. RAD/Spine 1 View Any Level IMPRESSION: INTRAOPERATIVE FILMS FOR LOCALIZATION. Reading Location: [id number] CC: Dr. Anabella Styles MD; Dr. Álvaro Jackson DO Alteration Inspector: Signed Normal [facility] Type AND Screen - PAT ONLYon 08-20-2024 Ab SCREEN GEL Negative Normal [facility] Comment on above: Order Comment: Reaso n for Laboratory Test [id number] FUSION Performed By: #### B TSPAT ####[facility] [address] [place], [place], [address] CNOVon 08-15-2024 CNOV Office Visit (SPMBHT) ---- MADISYN BARKER ([id number]) 1955 F Date Time Provider Department 08/15/24 8:40 AM SHARMILA FON[facility] During your visit today, we recorded the following information about you: Temperature Pulse Blood pressure 97.8 degrees 93/minute 144/78 Sharmila Fonseca MD 08/15/2024 9:46 AM Signed [facility] Low Back Pain - Chronic (> 12 weeks) Initial Exam SUBJECTIVE HISTORY OF PRESENT ILLNESS: Madisyn Barker is a 68 year old female with PMH of psoriatic arthritis, osteopenia, who presents with a chief complaint of low back pain radiating into bilateral buttock and posterior lower extremities. Worse with prolonged standing, and transitional movements. Had 3 injections at [facility]--2nd aborted because she could not tolerate, the other two did not provide sustained relief. Unclear what these were. Dr. [facility] [place]. Last injection was around May 2024 she thinks. No bowel or bladder issues, no saddle anesthesia, no weakness in BLE Prior Therapy: Mobic Naproxen Cymbalta Tylenol PT --has gone to 8 sessions at [facility] within the last 6 months with no relief of pain Litigation: No Workers' Compensation: No YELLOW AND BLUE FLAGS No-Neg Attitude; Back Pain is Disabling No-Avoiding Activity (for Fear of Pain) No-Depression or Anxiety Disorders No-Social Problems No-Substance Use Disorder No-Job Dissatisfaction No-Financial Disincentives Patient Entered Questionnaires 08/14/2024 Spine Questions Pain Location: Lower back Pain Duration: 6 months - 1 year Pain over last 6 months: Every day or nearly every day in the past 6 months Symptoms from neck/cervical spine: Yes Employment Status: Retired Involved in law suit/legal claim: No 08/14/2024 Spine Red Flags Any type of cancer: No Unexplained fever: No Bowel or bladder disfunction: No Unintentional weight loss: No Osteoporosis: No 08/14/2024 Neck Questionnaires Benzel Modified CARLI Score 15 (Mild Myelopathy Symptoms) PROMIS Score Percentiles 08/14/2024 Physical Health Physical Function Percentile 2 Sleep Percentile 38 Fatigue Percentile 18* Pain Interference Percentile 1 08/14/2024 PROMIS SOCIAL ROLE SCORE Social Role Satisfaction Percentile 1 11/27/2016 08/14/2024 PROMIS Global Health Scale Physical Health Percentile 4 4 Mental Health Percentile 26* 43 Patient-reported Percentiles provide an indication of how the patient's score ranks in relation to the general population. Higher percentile rankings indicate better function/quality of life. 50th percentile is the average of the general population and indicates half of respondents had a worse score. 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 Psoriatic arthritis Psoriasis Osteopenia Cervical Radiculopathy Menopausal Syndrome Counseling for Estrogen Replacement Therapy PAST MEDICAL HISTORY Diagnosis Date Endometriosis Former smoker Hand eczema Hand and foot eczema Irritable bowel syndrome Obesity, unspecified Osteopenia Psoriasis Psoriatic arthritis (HCC) Dr Smith Shortness of breath normal PFT 01/18/12 Vocal cord paralysis, unilateral partial abductor paralysis PAST SURGICAL HISTORY Procedure Laterality Date COLONOSCOPY FLX DX W/COLLJ SPEC WHEN PFRMD 04/14/08 repeat due 2017 COLONOSCOPY FLX DX W/COLLJ SPEC WHEN PFRMD 06/05/2018 Colonoscopy PAST SURGICAL HISTORY OF tubal sterilization PAST SURGICAL HISTORY OF 06/2000 echocardiogram VAGINAL HYSTERECTOMY UTERUS 250 GM/< 1990 ovaries intact, endometriosis Social History Tobacco Use Smoking status: Former Current packs/day: 0.00 Average packs/day: 0.5 packs/day for 15.0 years (7.5 ttl pk-yrs) Types: Cigarettes Start date: 03/03/1993 Quit date: 03/03/2008 Years since quittin.4 Smokeless tobacco: Never Vaping Use Vaping status: Never Used Substance Use Topics Alcohol use: Yes Alcohol/week: 1.0 standard drink of alcohol Types: 1 Glasses of Wine (5oz) per week Drug use: No FAMILY HISTORY Problem Relation Age of Onset Heart Mother valve disorder Diabetes Mother Stroke Mother Heart Father [place] Heart Brother Heart Brother Heart Sister pacemaker Diabetes Sister Heart Sister [place] Heart Brother ALLERGIES Allergen Reactions Anaprox [Naproxen S* Enbrel [Etanercept] Other: See Comments Joint swelling [place] [Other] Penicillins GI Upse (more content not included)... Normal [facility] Orthopedic Visit Reporton Orthopedic Visit Report [facility] [address] [place] [address] [place] [address] OFFICE VISIT Date of Service: 08/15/24 MR#: [id number] Acct: [id number] Name: MADISYN BARKER Rep #: [id number] : 1955 Provider: Dr. Anabella Styles MD Age/Sex: 68/F Location: [facility] Status: Signed Intake Vital Signs 04/03/24 08:31 Height 5 ft 5 in Intake Visit Reasons: LUMBAR SPINE Chief Complaint: Pre op Allergies cefdinir Allergy (Verified 08/15/24 13:49) Nausea Penicillins (PCN) Allergy (Verified 08/15/24 13:49) Other Medications ???Medication ???Instructions ???Recorded ???Confirmed ???Type leflunomide 20 mg tablet 20 mg PO DAILY PSORIATIC ARTHRITIS 06/24/22 08/15/24 History guselkumab 100 mg/mL subcutaneous 100 mg subcut Q8W PSORIATIC 12/2708/15/24 History syringe (Tremfya) ARTHRITIS phentermine 37.5 mg tablet 37.5 mg PO QAM WEIGHT LOSS 4 08/15/24 History spironolactone 50 mg tablet 50 mg PO QDAY WATER RETENTION 03/2508/15/24 History duloxetine 30 mg capsule,delayed 30 mg PO DAILY USES FOR BACK 07/0808/15/24 History release cholecalciferol (vitamin D3) 25 25 mcg PO QDAY 08/15/24 08/15/24 H istory mcg (1,000 unit) capsule Have you fallen in the past year?: No PFSH Medical History Wears glasses Alcohol use Psoriatic arthritis Gastric reflux Former smoker Arthritis Surgical History History of colonoscopy H/O: hysterectomy Social History Smoking Status: Former smoker alcohol intake: current what type of physical activity do you participate in: other details: golf HPI LUMBAR SPINE Details: This documentation accurately reflects the service provided and the decisions made by me, Dr. Anabella Styles MD 08/15/24 1347. Part of today???s visit was documented by Izabela Johnson RN, acting as scribe. MADISYN BARKER is a 68 year old F here today for preop appointment for scheduled 360 lumbar fusion L4-L5 on 08-20-2024. She states for the past 3-4 days her pain has gotten worse. She does have increased tightness in her legs as well. Her pain does seem to get better throughout the day. She does take Tylenol for the pain as well. 07/08/24: MADISYN BARKER is a 68 year old F here today for continued low back pain. She had seen Etelvina MOSELEY and was seeing pain management for injections but states that the injections are no longer helping. She states that her first injection helped her for 2 weeks then after that none of the injections helped after that. She has had a total of [address] Barksdale but he did put her on Cymbalta that she started on 07/03/24 for the pain which sometimes helps. Her last injection with Dr. Barksdale was on 06/04/24 and she had a Caudal MARCUS but this didn't help her. She would like to discuss surgery today and see id that is an option for her. 04/03/24: MADISYN BARKER is a 68 year old F here today for Lumbar pain. Patient states her back has bothered her for about 6-8 months but worse with in the last couple months. Patient denies any injury to her back. Patient pain in center of the lower back. Patient has pain that does go down her legs but mostly the left leg. This pain is located over her left anterior tibialis and at times to her calf. He has not had to use an ambulatory devices after the fall. Patient does have numbness and tingling that goes down her legs and mostly left. Patient just is currently doing PT tomorrow is her last session. Patient has never had injections in her back. Patient is taking Prednisone pain and Advil and Mobic. She has been taking 50mg prednisone cut into fourths so approximately 12.5mg, prescribed to her for the last 2 months. Says that she relies on this prednisone to help her pain to make it bearable for the day. Patient states ice and heat does help the back. Patient thinks heat works better. Ortho Exam General General: Yes no acute distress Neurologic: Yes alert and Yes oriented x3 Spine SPINE TESTING CERVICAL THORACIC LUMBAR Musculoskeletal Strength 0=absent - 5=normal Details: Neurological exam of the lower extremities shows 4 power with plantar flexion of the left foot and 5 power in all other muscles. Normal sensations across all dermatomes. No hyperreflexia. No midline or paraspinal tenderness. Romberg's negative. Passive straight leg raise negative. Coding Level of Care Code Off vis,est,level 4 Diagnoses Spinal stenosis of lumbar region with neurogenic claudication M48.062 Spondylolisthesis, lumbar region M43.16 Other secondary scoliosis, lumbar region M41.56 Scoliosis type: other secondary scoliosis Time Spent (min) 35 Assessment an (more content not included)... Normal [facility] Hepatitis A AB, Totalon HEPATITIS A,TOT Negative Normal Negative [facility] Comment on above: Result Comment: Comm ent: The HAV total antibody assay detects both IgG and IgM but does not differentiate between them. A negative result suggests susceptibility to infection. A positive result could be due to vaccination, previously resolved infection or active infection. Testing for HAV IgM should be performed if active HAV infection is suspected. [facility] offers profiles that will automatically reflex positive HAV total antibody results to IgM (e.g., panel #[id number] HAV Antibody w/ Rfx). Performed at: [address] [id number] Labor Specialist: Matheus Hamilton PhD, Phone: [phone] Performed By: #### L 3100.0300, L500.2500, L3890.6005, L3890.6200, M100.651, L100.0100, L3890.6300 ####[facility] [address] [place], [address] MR/ANEon 07-30-2024 MR/PAT.CELIA [facility] Medical Records Department [address] [place] [address] PAT - Anesthesia 07/30/24 0903 MR#: [id number] Acct: [id number] Name: MADISYN BARKER Rep #: [id number] : 1955 68 From: Woo Ko MD PCP: Dr. Álvaro Jackson, DO Status:PRE IN Y Race: C Location: [facility] Pre-Assessment Diagnosis/Proposed Procedure Planned Operative Procedure(s): 360 Lumbar Fusion L4-5 Anesthesia History Anesthesia History - web graphic designer: Anesthesia History - web graphic designer Hx Hospitalization No 07/28/24 14:33 Any Problems With Anesthesia No 07/28/24 14:33 Cholinesterase deficiency No 07/28/24 14:33 You/Your Family Experience No 07/28/24 14:33 fever (hyperthermia) with Relationship Recent Exposure to Contagious Disease Does patient have nerve No 07/28/24 14:33 stimulator Patient instructed to have device shut off --Does patient have Pacemaker or ICD? When Was Last Pacemaker Check QUESTION #4 FULL TEXT: You/Your Family Experience fever (hyperthermia) with Anesthesia Last Oral Intake Last Oral intake: Last Oral Intake NPO since Meds taken in AM with sips of water? Meds patient instructed to take am of surgery PONV PONV - web graphic designer: PONV - web graphic designer Female Yes 07/28/24 14:33 HX of Motion Sickness No 07/28/24 14:33 HX of N/V After Surgery No 07/28/24 14:33 Non-Smoker Yes 07/28/24 14:33 Duration of Surgery greater Yes 07/28/24 14:33 than 60 minutes Number of Risk Factors 3 07/28/24 14:33 PONV Score Moderate Risk 07/28/24 14:33 Height Weight Height Weight: Anesthesia: Height Weight Height 5 ft 5 in 04/03/24 08:31 Respiratory Assessment Respiratory Assessment - web graphic designer: Respiratory Tract Infection Hx - web graphic designer Hx Respiratory Tract Infection Yes: SAW PCP 07/28/24 07/28/24 14:33 STOP Sleep Apnea STOP Sleep Apnea - web graphic designer: STOP Sleep Apnea - web graphic designer Hx Hypertension No 07/28/24 14:33 Hx Sleep Apnea No 07/28/24 14:33 CPAP BIPAP Do you snore loudly (louder No 07/28/24 14:33 than talking or can be heard Do you often feel tired/ No 07/28/24 14:33 fatigued/ sleepy during daytime? Has anyone observed you stop No 07/28/24 14:33 breathing during sleep? STOP Results Negative 07/28/24 14:33 QUESTION #5 FULL TEXT : Do you snore loudly (louder than talking or can be heard through closed doors)? 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 Specify any problems Hx of Preganancy in last 3 No 07/28/24 14:33 Months Nurse Filling Out Transfusion DARIUSZ 07/28/24 14:33 Questions: Date: 07/28/24 07/28/24 14:33 Time: 14:36 07/28/24 14:33 Patient unable to answer at this time (ie. confused, unrespo /Reproduct ion History /Reproduct maida History - web graphic designer: /Reproduct maida Hx- web graphic designer Hx Now Gestational Age (in weeks): EDC: Hx Hx Para Hx Section SAB [facility] Medical History (Updated 07/28/24 @ 14:44 by Amirah Wells) Wears glasses Alcohol use Psoriatic arthritis Gastric reflux Former smoker Arthritis Home Medications ???Medication ???Instructions ???Recorded ???Last Taken ???Type leflunomide 20 mg tablet 20 mg PO DAILY PSORIATIC ARTHRITIS 06/24/22 Unknown History guselkumab 100 mg/mL subcutaneous 100 mg subcut Q8W PSORIATIC 12/27 Unknown History syringe (Tremfya) ARTHRITIS phentermine 37.5 mg tablet 37.5 mg PO QAM WEIGHT LOSS 4 Unknown History spironolactone 50 mg tablet 50 mg PO QDAY WATER RETENTION 03/25 Unknown History duloxetine 30 mg capsule,delayed 30 mg PO DAILY USES FOR BACK 07/08 Unknown History release calcium carbonate (Tums) 300 mg PO TID PRN dyspepsia Unknown History Allergy/AdvReac Type Severity Reaction Status Date / Time cefdinir Allergy Nausea Verified 07/28/24 10:54 Penicill (more content not included)... Normal [facility] MRSA/SAID NASAL SCREENon MRSA+SAID SCRN Reason for Exam: Surgery MRSA MRSA Negative S. AUREUS S. aureus Negative Normal [facility] Comment on above: Performed By: #### L 3100.0300, L500.2500, L3890.6005, L3890.6200, M100.651, L100.0100, L3890.6300 ####[facility] [address] [place], [address] 12 Lead EKGon 07-29-2024 12 Lead EKG [facility] Cardiovascular Services [address] [place] [address] 12 Lead EKG 07/29/24 1258 MR#: [id number] Acct: [id number] Name: MADISYN BARKER Rep #: [id number] : 1955 68 From: Jone Abarca MD Attending Dr: Dr. Anabella Styles MD Status: PRE IN Ordering Dr: Anabella Styles MD Date: 07/29/24 Location: [facility] Sex: F C Admitted: Test Reason : PRE OP Blood Pressure : */* mmHG Vent. Rate : 102 BPM Atrial Rate : 102 BPM P-R Int : 132 ms QRS Dur : 70 ms QT Int : 328 ms P-R-T Axes : 74 21 67 degrees QTcB Int : 427 ms Sinus tachycardia Low voltage QRS Borderline ECG Confirmed by RIMA BELL, JONE ([id number]), online content editor ELMA JOHNSON ([id number]) on 07/30/2024 7:39:21 AM Referred By: ANABELLA STYLES Confirmed By: JONE ABARCA MD 07/30/24 0739 Date Jone Abarca MD CC: Dr. Anabella Styles MD; Dr. Álvaro Jackson, DO Signed Normal [facility] Absolute lymphocyte countOrd ered By: Anabella Styles on 07-29-2024 Lymphocytes Auto (Unsp spec) [#/Vol] 1.72 10*3/uL 0.83-4.51 [facility] Absolute neutrophil countOrd ered By: Anabella Styles on 07-29-2024 Neutrophils (Bld) [#/Vol] 4.8 10*3/uL 2.0-7.7 [facility] Automated lymphocyte count a s percentage of total leukocytesOrdered By: Anabella Styles on 07-29-2024 Lymphocytes/100 WBC Auto (Unsp spec) 23.4 % 19-41 [facility] Basic Metabolic Profile (BMP )on 07-29-2024 BUN/CRE 13.7 RATIO Normal 10-20 [facility] Comment on above: Performed By: #### L 3100.0300, L500.2500, L3890.6005, L3890.6200, M100.651, L100.0100, L3890.6300 ####[facility] [address] [place], [address] CA,Total 9.5 mg/dL Normal 8.5-10.1 [facility] Comment on above: Performed By: #### L 3100.0300, L500.2500, L3890.6005, L3890.6200, M100.651, L100.0100, L3890.6300 ####[facility] [address] [place], [address] Chloride [Moles/Vol] 104 mmol/L Normal 98-107 [facility] Comment on above: Performed By: #### L 3100.0300, L500.2500, L3890.6005, L3890.6200, M100.651, L100.0100, L3890.6300 ####[facility] [address] [place], [place], [id number] CO2 [Moles/Vol] 25.0 mmol/L Normal 21.0-32.0 [facility] Comment on above: Performed By: #### L 3100.0300, L500.2500, L3890.6005, L3890.6200, M100.651, L100.0100, L3890.6300 ####[facility] [address] [place], [address] Creatinine [Mass/Vol] 0.88 mg/dL Normal 0.55-1.02 [facility] Comment on above: Result Comment: The validity of the calculated GFR GFRAA in patients over 70 years has not been determined. Clinical correlation is essential. Performed By: #### L 3100.0300, L500.2500, L3890.6005, L3890.6200, M100.651, L100.0100, L3890.6300 ####[facility] [address] [place], [place], [id number] EST GFR - AA 82 mL/min Normal >60 [facility] Comment on above: Result Comment: Afri can Yemeni GFR Calc Performed By: #### L 3100.0300, L500.2500, L3890.6005, L3890.6200, M100.651, L100.0100, L3890.6300 ####[facility] [address] [place], [address] GAP 7 Normal 5-15 [facility] Comment on above: Performed By: #### L 3100.0300, L500.2500, L3890.6005, L3890.6200, M100.651, L100.0100, L3890.6300 ####[facility] [address] [place], [address] GFR/1.73 sq M.predicted among non-blacks MDRD (S/P/Bld) [Vol rate/Area] 68 mL/min/{1.73_m2} Normal >60 [facility] Comment on above: Result Comment: Non- GFR Calc Performed By: #### L 3100.0300, L500.2500, L3890.6005, L3890.6200, M100.651, L100.0100, L3890.6300 ####[facility] [address] [place], [address] Glucose [Mass/Vol] 139 mg/dL High 74-106 [facility] Comment on above: Result Comment: Fast ing Glucose result greater than or equal to 126 mg/dL suggests DIABETES MELLITUS per A.D.A. criteria. Performed By: #### L 3100.0300, L500.2500, L3890.6005, L3890.6200, M100.651, L100.0100, L3890.6300 ####[facility] [address] [place], [address] Potassium [Moles/Vol] 3.9 mmol/L Normal 3.5-5.1 [facility] Comment on above: Performed By: #### L 3100.0300, L500.2500, L3890.6005, L3890.6200, M100.651, L100.0100, L3890.6300 ####[facility] [address] [place], [address] Sodium [Moles/Vol] 136 mmol/L Normal 136-145 [facility] Comment on above: Performed By: #### L 3100.0300, L500.2500, L3890.6005, L3890.6200, M100.651, L100.0100, L3890.6300 ####[facility] [address] [place], [address] Urea nitrogen [Mass/Vol] 12 mg/dL Normal 7-18 [facility] Comment on above: Performed By: #### L 3100.0300, L500.2500, L3890.6005, L3890.6200, M100.651, L100.0100, L3890.6300 ####[facility] [address] [place], [address] Basophil percentageOrdered B y: Anabella Styles on 07-29-2024 Basophils/100 WBC (Bld) 1.1 % High 0-1 [facility] CBC W/Diff, Automatedon Absolute Lymph 1.72 X10 3/uL Normal 0.83-4.51 [facility] Comment on above: Performed By: #### L 3100.0300, L500.2500, L3890.6005, L3890.6200, M100.651, L100.0100, L3890.6300 #### [facility] [address] [place], [address] Absolute Neut 4.8 X10 3/uL Normal 2.0-7.7 [facility] Comment on above: Performed By: #### L 3100.0300, L500.2500, L3890.6005, L3890.6200, M100.651, L100.0100, L3890.6300 #### [facility] [address] [place], [address] Basophils/100 WBC (Bld) 1.1 % High 0-1 [facility] Comment on above: Performed By: #### L 3100.0300, L500.2500, L3890.6005, L3890.6200, M100.651, L100.0100, L3890.6300 #### [facility] [address] [place], [address] Eosinophils/100 WBC (Bld) 3.1 % Normal 0-5 [facility] Comment on above: Performed By: #### L 3100.0300, L500.2500, L3890.6005, L3890.6200, M100.651, L100.0100, L3890.6300 #### [facility] [address] [place], [address] Erythrocyte distribution width (RBC) [Ratio] 13.9 % Normal 11.6-14.6 [facility] Comment on above: Performed By: #### L 3100.0300, L500.2500, L3890.6005, L3890.6200, M100.651, L100.0100, L3890.6300 #### [facility] [address] [place], [address] Hematocrit (Bld) [Volume fraction] 40.4 % Normal 37-47 [facility] Comment on above: Performed By: #### L 3100.0300, L500.2500, L3890.6005, L3890.6200, M100.651, L100.0100, L3890.6300 #### [facility] [address] [place], [address] Hemoglobin (Bld) [Mass/Vol] 13.6 g/dL Normal 12.0-15.0 [facility] Comment on above: Performed By: #### L 3100.0300, L500.2500, L3890.6005, L3890.6200, M100.651, L100.0100, L3890.6300 #### [facility] [address] [place], [address] IG% 0.500 Normal 0.0-0.9 [facility] Comment on above: Result Comment: IG% - Immature Granulocytes (promyelocytes, myelocytes and metamyelocytes) > 1% indicates that a LEFT SHIFT is Present. Performed By: #### L 3100.0300, L500.2500, L3890.6005, L3890.6200, M100.651, L100.0100, L3890.6300 #### [facility] [address] [place], [address] Lymphocytes/100 WBC (Bld) 23.4 % Normal 19-41 [facility] Comment on above: Performed By: #### L 3100.0300, L500.2500, L3890.6005, L3890.6200, M100.651, L100.0100, L3890.6300 #### [facility] [address] [place], [address] MCH (RBC) [Entitic mass] 31.9 pg Normal 27.0-32.0 [facility] Comment on above: Performed By: #### L 3100.0300, L500.2500, L3890.6005, L3890.6200, M100.651, L100.0100, L3890.6300 #### [facility] [address] [place], [address] MCHC (RBC) [Mass/Vol] 33.7 g/dL Normal 32-36 [facility] Comment on above: Performed By: #### L 3100.0300, L500.2500, L3890.6005, L3890.6200, M100.651, L100.0100, L3890.6300 #### [facility] [address] [place], [address] MCV (RBC) [Entitic vol] 94.8 fL Normal 81-99 [facility] Comment on above: Performed By: #### L 3100.0300, L500.2500, L3890.6005, L3890.6200, M100.651, L100.0100, L3890.6300 #### [facility] [address] [place], [address] Monocytes/100 WBC (Bld) 6.5 % Normal 0-10 [facility] Comment on above: Performed By: #### L 3100.0300, L500.2500, L3890.6005, L3890.6200, M100.651, L100.0100, L3890.6300 #### [facility] [address] [place], [address] Neutrophils/100 WBC (Bld) 65.4 % Normal 47-70 [facility] Comment on above: Performed By: #### L 3100.0300, L500.2500, L3890.6005, L3890.6200, M100.651, L100.0100, L3890.6300 #### [facility] [address] [place], [address] Nucleated RBC (Bld) [#/Vol] 0 10*3/uL Normal 0-5 [facility] Comment on above: Performed By: #### L 3100.0300, L500.2500, L3890.6005, L3890.6200, M100.651, L100.0100, L3890.6300 #### [facility] [address] [place], [address] Platelet mean volume (Bld) [Entitic vol] 10.3 fL Normal 6.2-12.0 [facility] Comment on above: Performed By: #### L 3100.0300, L500.2500, L3890.6005, L3890.6200, M100.651, L100.0100, L3890.6300 #### [facility] [address] [place], [address] Platelets (Bld) [#/Vol] 423 10*3/uL Normal 150-450 [facility] Comment on above: Performed By: #### L 3100.0300, L500.2500, L3890.6005, L3890.6200, M100.651, L100.0100, L3890.6300 #### [facility] [address] [place], [address] RBC (Bld) [#/Vol] 4.26 10*6/uL Normal 4.2-5.4 [facility] Comment on above: Performed By: #### L 3100.0300, L500.2500, L3890.6005, L3890.6200, M100.651, L100.0100, L3890.6300 #### [facility] [address] [place], [address] RDW SD 48.2 fl High 35.1-43.9 [facility] Comment on above: Performed By: #### L 3100.0300, L500.2500, L3890.6005, L3890.6200, M100.651, L100.0100, L3890.6300 #### [facility] [address] [place], [address] WBC (Bld) [#/Vol] 7.3 10*3/uL Normal 4.4-11.0 [facility] Comment on above: Performed By: #### L 3100.0300, L500.2500, L3890.6005, L3890.6200, M100.651, L100.0100, L3890.6300 #### [facility] [address] [place], [address] Chloride measurementOrdered By: Anabella Styles on 07-29-2024 Chloride [Moles/Vol] 104 mmol/L 98-107 [facility] Eosinophil percentageOrdered By: Anabella Styles on 07-29-2024 Eosinophils/100 WBC (Bld) 3.1 % 0-5 [facility] Estimated glomerular filtrat ion rate (GFR) AmericanOrdered By: Anabella Styles on 07-29-2024 Estimated GFR (MDRD) Amer 82 mL/min >60 [facility] Comment on above: GFR Calc HBV surface IgG Ql (S)Ordere d By: Anabella Styles on 07-29-2024 Hepatitis B Surface Antibody Reactive [facility] Comment on above: Non Reactive: Incons istent with immunity less than <10 mIU/mL Reactive: Consistent with immunity greater than or equal to 10 mIU/mL HIV - WCHon 07-29-2024 HIV Non-Reactive Normal Nonreactive [facility] Comment on above: Order Comment: Reaso n for Exam: PREOP Performed By: #### L 3100.0300, L500.2500, L3890.6005, L3890.6200, M100.651, L100.0100, L3890.6300 ####[facility] [address] [place], [address] HIV 1 and HIV-2 antibody ass ay with HIV-1 p24 antigen detectionOrdered By: Anabella Styles on 07-29-2024 HIV 1+2 Ab+HIV1 p24 Ag IA Ql Non-Reactive Nonreactive [facility] HIV 1+2 Ab+HIV1 p24 Ag IA Ql Ordered By: Anabella Styles on 07-29-2024 HIV (1&2) Antibody Non-Reactive Nonreactive [facility] Hepatitis A virus total anti body assayOrdered By: Anabella Styles on 07-29-2024 Hepatitis A Antibody Total Negative Negative [facility] Comment on above: Comment: The HAV tot al antibody assay detects both IgG andIgM but does not differentiate between them. A negativeresult suggests susceptibility to infection. A positiveresult could be due to vaccination, previously resolvedinfection or active infection. Testing for HAV IgM shouldbe performed if active HAV infection is suspected. [facility]corpoffers profiles that will automatically reflex positive HAVtotal antibody results to IgM (e.g., panel #[id number] HAVAntibody w/ Rfx).Performed at: [facility] [address] [id number] Director: Matheus Hamilton PhD, Phone: [phone] Hepatitis B Surface Antibody on 07-29-2024 HEP B Surf Ab Reactive Normal [facility] Comment on above: Order Comment: Reaso n for Exam: PREOP Result Comment: Non Reactive: Inconsistent with immunity less than <10 mIU/mL Reactive: Consistent with immunity greater than or equal to 10 mIU/mL Performed By: #### L 3100.0300, L500.2500, L3890.6005, L3890.6200, M100.651, L100.0100, L3890.6300 ####[facility] [address] [place], [address] Hepatitis C Antibodyon 07-29 Hepatitis C AB Non-Reactive Normal Nonreactive [facility] Comment on above: Order Comment: Reaso n for Exam: PREOP Result Comment: Non Reactive: < 0.8 Equivocal: >/= 0.8 to < 1.0 Reactive: >/= 1.0 The [facility] requires that a reactive/equivocal HCV antibody result be sent out for confirmation. HCV Quant by PCR testing. Performed By: #### L 3100.0300, L500.2500, L3890.6005, L3890.6200, M100.651, L100.0100, L3890.6300 ####[facility] [address] [place], [address] Hepatitis C virus antibody a ssayOrdered By: Anabella Styles on 07-29-2024 Hepatitis C Antibody Non-Reactive Nonreactive [facility] Comment on above: Non Reactive: < 0.8 Equivocal: >/= 0.8 to < 1.0 Reactive: >/= 1.0The CDC requires that a reactive/equivocal HCV antibody result be sent out for confirmation. HCV Quant by PCR testing. Immature granulocytes/100 WB C Auto (Bld)Ordered By: Anabella Styles on 07-29-2024 Immature granulocytes/100 WBC (Bld) 0.500 % 0.0-0.9 [facility] Comment on above: IG% - Immature Granu locytes (promyelocytes, myelocytes and metamyelocytes) > 1% indicates that a LEFT SHIFT is Present. Lymphocytes Auto (Unsp spec) [#/Vol]Ordered By: Anabella Styles on 07-29-2024 Lymphocytes (Bld) [#/Vol] 1.72 10*3/uL 0.83-4.5 1 [facility] Lymphocytes/100 WBC Auto (Un sp spec)Ordered By: Anabella Styles on 07-29-2024 Lymphocytes/100 WBC (Bld) 23.4 % 19-41 [facility] MRSA screenOrdered By: Imelda Styles on 07-29-2024 MRSA DNA ESTHER+probe Ql (Unsp spec) [facility] Nasal Screen MRSA/MSSA [facility] Magnesiumon 07-29-2024 Magnesium [Mass/Vol] 2.2 mg/dL Normal 1.6-2.6 [facility] Comment on above: Performed By: #### L 501.5200 #### [facility] [address] [place] [address], [phone] Magnesium measurementOrdered By: Woo Ko on 07-29-2024 Magnesium [Mass/Vol] 2.2 mg/dL 1.6-2.6 [facility] Monocyte percentageOrdered B y: Anabella Styles on 07-29-2024 Monocytes/100 WBC (Bld) 6.5 % 0-10 [facility] Neutrophil percentageOrdered By: Anabella Styles on 07-29-2024 Neutrophils/100 WBC (Bld) 65.4 % 47-70 [facility] Nucleated red blood cell per centageOrdered By: Anabella Styles on 07-29-2024 Nucleated RBC/100 WBC (Bld) [Ratio] 0 % 0-5 [facility] Serum hepatitis B virus surf morenita antibody IgG detectionOrdered By: Anabella Styles on 07-29-2024 HBV surface IgG Ql (S) Reactive [facility] Comment on above: Non Reactive: Incons istent with immunity less than <10 mIU/mL Reactive: Consistent with immunity greater than or equal to 10 mIU/mL Javad 07-18-2024 LEIF Telephone ([facility]) ---- BERNABEMADISYN Cannon ([id number]) 1955 F Date Time Provider Department 07/18/24 FONSECASHARMILA [facility] During your visit today, we recorded the following information about you: Vane Wayne OCCA 07/18/2024 11:51 AM Signed Patient records received via electronic fax. Uploaded to [employer] via [email or web address]. Please review in scanned documents tab of chart review. LEEANNE Avilez Media Information File Link Scan on 07/17/2024 11:48 AM by Provider, External, PA-C: [facility] MR Lumbar Report Bloom Information Document ID File Type Document Type Description [id number] Image External Document(s) [facility] MR Lumbar Report Import Information Attached At Date Time User Dept Patient Level 07/17/2024 11:48 AM ProviderRoxanne PAWinnieC Document Information [facility] Administration: External Document(s) [facility] MR Lumbar Report 07/17/2024 11:48 AM Attached To: Mrs. Mary Cannon [place] Source Information Provider, External PAWinnieC Document History Allergies As of Date: 07/18/2024 Noted Allergy Reaction ANAPROX (NAPROXEN SODIUM) 05/01/2006 ENBREL (ETANERCEPT) 05/16/2011 14 - Other: See Comments Comments: Joint swelling asia [Other] 05/01/2006 PENICILLINS 05/01/2006 8 - GI Upset Comments: has an intollerance RELAFEN (NABUMETONE) 05/01/2006 SULFA (SULFONAMIDE ANTIBIOTICS) 12/02/2015 8 - GI Upset VOLTAREN (DICLOFENAC SODIUM) 10/19/2016 16 - Unknown Date Reviewed: 12/04/2023 Reviewed by: Yana Erwin MA - Fully Assessed Prescriptions as of 07/18/2024 - meloxicam (MOBIC) 7.5 mg tablet Take 1 tablet by mouth once daily. - guselkumab (TREMFYA) 100 mg/mL syrg As directed - biotin 5,000 mcg ODT Take by mouth. - Cyanocobalamin (VITAMIN B-12) 2,500 mcg subl Dissolve under the tongue. - naproxen sodium (ALEVE) 220 mg tablet Take 440 mg by mouth twice daily with meals. - Cholecalciferol, Vitamin D3, 5,000 unit cap Take 1 capsule by mouth once daily. - leflunomide 20 mg tablet Take 20 mg by mouth once daily. Problem List As Of Date 07/18/2024 Noted Resolved Peripheral enthesopathies and allied syndromes *02/27/2007 Tobacco Use Disorder [F17.200] 06/19/2007 08/04/2009 Pyoderma, unspecified [L08.0] 06/29/2008 07/16/2015 XEROSIS///SEBACEOUS GLAND DIS NEC [L73.8] 06/29/2008 07/16/2015 Contact dermatitis and other eczema, due to uns*07/02/2008 07/16/2015 Unspecified pruritic disorder [L29.9] 07/02/2008 07/16/2015 Viral warts, unspecified [B07.9] 08/21/2008 07/16/2015 Generalized hyperhidrosis [R61] 11/09/2008 07/16/2015 Laryngeal spasm [J38.5] 11/09/2008 Nocturia [R35.1] 11/09/2008 07/16/2015 Insomnia, unspecified [G47.00] 11/09/2008 07/16/2015 Routine general medical examination at [facility]*12/14/2008 07/16/2015 Obesity, unspecified [E66.9] 12/14/2008 04/16/2017 Shortness of breath [R06.02] 12/14/2008 07/16/2015 Former smoker [Z87.891] 08/04/2009 10/29/2015 Depression [F32.A] 08/04/2009 08/16/2016 Melanocytic Nevus of Trunk: mid chest and mid b*02/11/2010 10/29/2015 Skin tags 02/11/2010 05/11/2010 Hand eczema [L30.9] 02/11/2010 07/16/2015 Solar Lentigines [L81.4] 02/11/2010 05/11/2010 Actinic Damage///Sun-Damage d Skin [L57.8] 02/11/2010 10/29/2015 Inflammatory polyarthropathy (HCC) [M06.4] 05/11/2010 07/16/2015 Psoriatic arthritis [L40.50] Psoriasis [L40.9] Osteopenia [M85.80] 05/16/2011 Benign essential hypertension [I10] 01/27/2015 04/16/2017 Cervical radiculopathy [M54.12] 11/27/2016 Menopausal syndrome [N95.1] 02/16/2020 Counseling for estrogen replacement therapy [Z7*11/05/2018 Encounter Status:Closed by VANE WAYNE on 07/18/24 Normal [facility] Orthopedic Visit Reporton Orthopedic Visit Report [facility] [address] [place] [address] [address] [place] [address] OFFICE VISIT Date of Service: 07/08/24 MR#: [id number] Acct: [id number] Name: MADISYN BARKER Rep #: [id number] : 1955 Provider: Dr. Anabella Styles MD Age/Sex: 68/F Location: [facility] [place] Status: Signed Intake Vital Signs 04/03/24 08:31 Height 5 ft 5 in Weight: 180 lb 2 oz BMI 29.9 Intake Visit Reasons: LUMBAR SPINE Allergies cefdinir Allergy (Verified 07/08/24 08:03) Nausea Penicillins (PCN) Allergy (Verified 07/08/24 08:03) Other Medications ???Medication ???Instructions ???Recorded ???Confirmed ???Type leflunomide 20 mg tablet 20 mg PO DAILY 06/24/22 07/08/24 History guselkumab 100 mg/mL subcutaneous 100 mg subcut Q8W 12/27/22 07/08/24 History syringe (Tremfya) phentermine 37.5 mg tablet 37.5 mg PO QAM 04/03/24 07/08/24 History spironolactone 50 mg tablet 50 mg PO QDAY 04/03/24 07/08/24 History duloxetine 30 mg capsule,delayed mg PO 07/08/24 07/08/24 History release Have you fallen in the past year?: No PFSH Medical History Arthritis Surgical History H/O: hysterectomy Social History Smoking Status: Never smoker alcohol intake: current what type of physical activity do you participate in: other details: golf HPI LUMBAR SPINE Details: This documentation accurately reflects the service provided and the decisions made by me, Dr. Anabella Styles MD 07/08/24 0758. Part of today???s visit was documented by Suly NUÑEZ, acting as scribe. MADISYN BARKER is a 68 year old F here today for continued low back pain. She had seen Etelvina MOSELEY and was seeing pain management for injections but states that the injections are no longer helping. She states that her first injection helped her for 2 weeks then after that none of the injections helped after that. She has had a total of [address] Barksdale but he did put her on Cymbalta that she started on 07/03/24 for the pain which sometimes helps. Her last injection with Dr. Barksdale was on 06/04/24 and she had a Caudal MARCUS but this didn't help her. She would like to discuss surgery today and see id that is an option for her. 04/03/24: MADISYN BARKER is a 68 year old F here today for Lumbar pain. Patient states her back has bothered her for about 6-8 months but worse with in the last couple months. Patient denies any injury to her back. Patient pain in center of the lower back. Patient has pain that does go down her legs but mostly the left leg. This pain is located over her left anterior tibialis and at times to her calf. He has not had to use an ambulatory devices after the fall. Patient does have numbness and tingling that goes down her legs and mostly left. Patient just is currently doing PT tomorrow is her last session. Patient has never had injections in her back. Patient is taking Prednisone pain and Advil and Mobic. She has been taking 50mg prednisone cut into fourths so approximately 12.5mg, prescribed to her for the last 2 months. Says that she relies on this prednisone to help her pain to make it bearable for the day. Patient states ice and heat does help the back. Patient thinks heat works better. Ortho Exam General General: Yes no acute distress Neurologic: Yes alert and Yes oriented x3 Spine SPINE TESTING CERVICAL THORACIC LUMBAR Musculoskeletal Strength 0=absent - 5=normal Details: Neurological exam of the lower extremities shows 4 power with plantar flexion of the left foot and 5 power in all other muscles. Normal sensations across all dermatomes. No hyperreflexia. No midline or paraspinal tenderness. Romberg's negative. Passive straight leg raise negative. Coding Level of Care Code Off vis,est,level 4 Diagnoses Spondylolisthesis, lumbar region M43.16 Other secondary scoliosis, lumbar region M41.56 Scoliosis type: other secondary scoliosis Spinal stenosis of lumbar region with neurogenic claudication M48.062 Time Spent (min) 35 Assessment and Plan Assessment and Plan (1) Spondylolisthesis, lumbar region: Status: Acute (2) Lumbar scoliosis: Status: Acute Qualifiers: Scoliosis type: other secondary scoliosis Qualified Code(s): M41.56 - Other secondary scoliosis, lumbar region (3) Spinal stenosis of lumbar region with neurogenic claudication: Status: Acute Plan Reviewed x-rays and MRI of the lumbar spine again today with the patient. These show L4-5 grade 1 spondylolisthesis along with lateral listhesis and degenerative lumbar scoliosis with concavity to the left. L4-5 shows severe central, bilateral lateral recess and left foraminal stenosis. L5-S1 shows right m (more content not included)... Normal [facility] Renal Profileon 04-08-2024 Albumin [Mass/Vol] 4.1 g/dL Normal 3.2-5.0 [facility] Comment on above: Performed By: #### L [id number] #### [facility] [address] [place], [address] BUN/CRE 24.0 RATIO High 04-13 [facility] Comment on above: Performed By: #### L [id number] #### [facility] [address] [place], [address] CA,Total 9.5 mg/dL Normal 8.5-10.1 [facility] Comment on above: Performed By: #### L [id number] #### [facility] [address] [place], [address] Chloride [Moles/Vol] 104 mmol/L Normal 98-107 [facility] Comment on above: Performed By: #### L [id number] #### [facility] [address] [place], [address] CO2 [Moles/Vol] 26.0 mmol/L Normal 21.0-32.0 [facility] Comment on above: Performed By: #### L [id number] #### [facility] [address] [place], [address] Creatinine [Mass/Vol] 0.96 mg/dL Normal 0.55-1.02 [facility] Comment on above: Result Comment: The validity of the calculated GFR GFRAA in patients over 70 years has not been determined. Clinical correlation is essential. Performed By: #### L [id number] #### [facility] [address] [place], [address] EST GFR - AA 75 mL/min Normal >60 [facility] Comment on above: Result Comment: Afri can Yemeni GFR Calc Performed By: #### L [id number] #### [facility] [address] [place], [address] GFR/1.73 sq M.predicted among non-blacks MDRD (S/P/Bld) [Vol rate/Area] 62 mL/min/{1.73_m2} Normal >60 [facility] Comment on above: Result Comment: Non- GFR Calc Performed By: #### L [id number] #### [facility] [address] [place], [address] Glucose [Mass/Vol] 165 mg/dL High 74-106 [facility] Comment on above: Result Comment: Fast ing Glucose result greater than or equal to 126 mg/dL suggests DIABETES MELLITUS per A.D.A. criteria. Performed By: #### L [id number] #### [facility] [address] [place], [address] Phosphate [Mass/Vol] 3.0 mg/dL Normal 2.5-4.9 [facility] Comment on above: Performed By: #### L [id number] #### [facility] [address] [place], [address] Potassium [Moles/Vol] 4.3 mmol/L Normal 3.5-5.1 [facility] Comment on above: Performed By: #### L [id number] #### [facility] [address] [place], [address] Sodium [Moles/Vol] 136 mmol/L Normal 136-145 [facility] Comment on above: Performed By: #### L [id number] #### [facility] [address] [place], [address] Urea nitrogen [Mass/Vol] 23 mg/dL High 7-18 [facility] Comment on above: Performed By: #### L [id number] #### [facility] [address] [place], [address] L/S Spine Min 4 Viewson 03-25 0-2023 L/S Spine Min 4 Views [facility] [address] [place] [address] L/S Spine Min 4 Views MR#: [id number] Acct: [id number] Name: MADISYN BARKER Rep #: [id number] : 1955 F 68 From: Joe Rivers MD PCP: Dr. Álvaro Jackson, DO Status: DEP AMB Study: L/S Spine Min 4 Views Date of Exam: 04/03/24 Exam# [id number] Ordering Dr: Etelvina Abraham -[id number] STUDY: X-RAY - LUMBAR SPINE REASON FOR EXAM: Female, 68 years old. low back pain -- please do upright AP, LAT, flex/ext TECHNIQUE: 4 view(s) of the lumbar spine were obtained. COMPARISON: None FINDINGS: Normal lumbar lordosis. There is moderate dextro scoliosis. There is grade 1 spondylolisthesis at L4-5 narrowing of the disc space and multilevel endplate spurring No evidence for acute fracture or subluxation. No lytic or sclerotic bony lesions. The soft tissue structures are unremarkable. RAD/L/S Spine Min 4 Views IMPRESSION: Scoliosis and degenerative change. No acute fracture or other significant bony pathology Electronically Signed: Joe Rivers MD at 20:31 EDT Reading Location ID and State: [address] [place] [address] Tel , Service support , CC: SABINO Sin; Dr. Álvaro Jackson DO Alteration Inspector: Signed Normal [facility] Orthopedic Visit Reporton Orthopedic Visit Report [facility] [address] [place] [address] OFFICE VISIT Date of Service: 04/03/24 MR#: [id number] Acct: [id number] Name: MADISYN BARKER Rep #: [id number] : 1955 Provider: SABINO Sin Age/Sex: 68/F Location: [facility] [place] Status: Signed Intake Vital Signs 12/27/22 13:02 03/24/24 08:51 04/03/24 08:31 Height 5 ft 5 in 5 ft 5 in 5 ft 5 in Weight: 180 lb 2 oz BMI 29.9 Intake Visit Reasons: LUMBAR SPINE Accompanied by: Is patient in pain?: Yes Pain scale (1-10): 7 Allergies cefdinir Allergy (Verified 04/03/24 08:33) Nausea Penicillins (PCN) Allergy (Verified 04/03/24 08:33) Other Medications ???Medication ???Instructions ???Recorded ???Confirmed ???Type leflunomide 20 mg tablet 20 mg PO DAILY 06/24/22 04/03/24 History meloxicam 7.5 mg tablet 7.5 mg PO BID PRN PRN Pain 06/24/22 04/03/24 History guselkumab 100 mg/mL subcutaneous 100 mg subcut Q8W 12/27/22 04/03/24 History syringe (Tremfya) phentermine 37.5 mg tablet 37.5 mg PO QAM 04/03/24 04/03/24 History prednisone 10 mg tablet 10 mg PO QDAY 04/03/24 04/03/24 History spironolactone 50 mg tablet 50 mg PO QDAY 04/03/24 04/03/24 History Have you fallen in the past year?: No PFSH Medical History Arthritis Surgical History H/O: hysterectomy Social History Smoking Status: Never smoker alcohol intake: current what type of physical activity do you participate in: other details: golf HPI LUMBAR SPINE Details: This documentation accurately reflects the service provided and the decisions made by me, SABINO Sin 04/03/24 0830. Part of today???s visit was documented by Swapna ARMENDARIZ , acting as scribe. MADISYN BARKER is a 68 year old F here today for Lumbar pain. Patient states her back has bothered her for about 6-8 months but worse with in the last couple months. Patient denies any injury to her back. Patient pain in center of the lower back. Patient has pain that does go down her legs but mostly the left leg. This pain is located over her left anterior tibialis and at times to her calf. He has not had to use an ambulatory devices after the fall. Patient does have numbness and tingling that goes down her legs and mostly left. Patient just is currently doing PT tomorrow is her last session. Patient has never had injections in her back. Patient is taking Prednisone pain and Advil and Mobic. She has been taking 50mg prednisone cut into fourths so approximately 12.5mg, prescribed to her for the last 2 months. Says that she relies on this prednisone to help her pain to make it bearable for the day. Patient states ice and heat does help the back. Patient thinks heat works better. Ortho Exam General General: Yes no acute distress Neurologic: Yes alert and Yes oriented x3 Spine SPINE TESTING CERVICAL THORACIC LUMBAR Musculoskeletal Strength 0=absent - 5=normal Details: Neurological exam of the lower extremities shows 4 power with plantar flexion of the left foot and 5 power in all other muscles. Normal sensations across all dermatomes. No hyperreflexia. No midline or paraspinal tenderness. Romberg's negative. Passive straight leg raise negative. Coding Level of Care Code Off vis,est,level 3 Diagnoses Spinal stenosis at L4-L5 level M48.061 Spondylosis of lumbar spine M47.816 Assessment and Plan Assessment and Plan (1) Spinal stenosis at L4-L5 level: Status: Acute (2) Spondylosis of lumbar spine: Status: Acute Orders: Orders L/S Spine Min 4 Views Today M54.50 - Low back pain, unspecified Referrals Pain Management M48.061 - Spinal stenosis, lumbar region without neurogenic claudication Plan Obtained and reviewed xrays today with the patient and reviewed prior MRI from 03/29/24. MRI shows severe spinal canal stenosis and severe left as well as moderate right neural foraminal narrowing. On the left, there is a medial internal facet synovial cyst which contributes to the degree of severe spinal canal stenosis. Patient denies any Xrays show a mild scoliosis, severe disc height loss at L4-L5, and a spondylolisthesis of L4 on L5 on extension views with vacuum phenomenon. Patient has already had physical therapy for this issue and feels that it has not benefitted her. Encouraged her to continue to do the home exercise program with stretching and exercises that they have given her. Discussed that her options at this point are to see pain management for spinal injections or surgery. She wishes to exhaust nonsurgical options with pain management before discussing surgery. Discussed the steroids that she has (more content not included)... Normal [facility] Spine Lumbar (Routine)on Spine Lumbar (Routine) [facility] Imaging Services [address] [place] [address] Spine Lumbar (Routine) MR#: [id number] Acct: [id number] Name: MADISYN BARKER Rep #: [id number] : 1955 F 68 From: Speedy vivar DO PCP: Dr. Álvaro Jackson DO Status: REG CLI Study: Spine Lumbar (Routine) Date of Exam: 03/29/24 Exam# [id number] Ordering Dr: Álvaro Jackson DO -[id number] EXAM: MR LUMBAR SPINE WITHOUT INTRAVENOUS CONTRAST CLINICAL INDICATION: BACK PAIN INTO LEGS BILATERALLY TECHNIQUE: Multiplanar and multisequence MR images of the lumbar spine without intravenous contrast. COMPARISON: No relevant prior studies available. FINDINGS: VERTEBRAE: Localization/counti ng sequence demonstrates degenerative changes in the cervical and thoracic spine with at least moderate spinal canal stenosis in the lower cervical region. Vertebral body heights are preserved. Normal alignment. No spondylolisthesis. There is preservation of the normal lumbar lordosis. SPINAL CORD: No significant abnormality. Normal position and signal intensity of the conus medullaris. SOFT TISSUES: No significant abnormality. DISCS/SPINAL CANAL/NEURAL FORAMINA: L1-L2: Disc bulge and mild bilateral facet arthrosis. Mild spinal canal stenosis. No significant neural foraminal narrowing and no disc herniation. L2-L3: Central disc herniation superimposed upon a disc bulge and moderate bilateral facet arthrosis. Mild spinal canal stenosis and mild right greater than left neural foraminal narrowing. No nerve root impingement. L3-L4: Severe bilateral facet arthrosis and disc bulge with superimposed left foraminal to extraforaminal disc herniation. Moderate spinal canal stenosis and moderate bilateral neural foraminal narrowing. Impingement of the left L4 nerve root. L4-L5: Disc height loss and disc desiccation. Disc bulge with superimposed left central to subarticular disc herniation and severe bilateral facet arthrosis with ligamentum flavum thickening. On the left, there is a medial internal facet synovial cyst which contributes to the degree of severe spinal canal stenosis. There is severe left and moderate right neural foraminal narrowing. There is effacement of CSF from the thecal sac with crowding of the intrathecal nerve roots an indeterminate degree of intrathecal nerve root impingement. There is impingement of the left L4 and bilateral L5 nerve roots. L5-S1: Moderate bilateral facet arthrosis and disc bulge. Mild left and moderate right neural foraminal narrowing. Mild spinal canal stenosis. No nerve root impingement. OTHER FINDINGS: Symmetric mild arthrosis of the bilateral SI joints. MRI/Spine Lumbar (Routine) IMPRESSION: 1. Multilevel degenerative changes in the lumbar spine, worse at L4-5 resulting in severe spinal canal stenosis and severe left as well as moderate right neural foraminal narrowing. Indeterminate degree of intrathecal nerve root impingement at this level. Otherwise, at this level, there is left L4 and bilateral L5 nerve root impingement. Recommend spine surgery consultation if not already performed. 2. Localization/counti ng sequence demonstrates degenerative changes in the cervical and thoracic spine with at least moderate spinal canal stenosis in the lower cervical region. Consider follow-up dedicated imaging of the cervical and thoracic spine as clinically indicated. Electronically Signed: Speedy Kay DO at 23:27 EDT , CC: Dr. Álvaro Jackson, Alteration Inspector: Signed Normal [facility] Renal Profileon 03-10-2024 Albumin [Mass/Vol] 3.7 g/dL Normal 3.2-5.0 [facility] Comment on above: Performed By: #### L [id number] ####[facility] [address] [place], [address] BUN/CRE 21.1 RATIO High 10-20 [facility] Comment on above: Performed By: #### L [id number] ####[facility] [address] [place], [address] CA,Total 9.1 mg/dL Normal 8.5-10.1 [facility] Comment on above: Performed By: #### L [id number] ####[facility] [address] [place], [address] Chloride [Moles/Vol] 104 mmol/L Normal 98-107 [facility] Comment on above: Performed By: #### L [id number] ####[facility] [address] [place], [address] CO2 [Moles/Vol] 26.0 mmol/L Normal 21.0-32.0 [facility] Comment on above: Performed By: #### L 500.3600 ####[facility] [address] [place], [address] Creatinine [Mass/Vol] 1.09 mg/dL High 0.55-1.02 [facility] Comment on above: Result Comment: The validity of the calculated GFR GFRAA in patients over 70 years has not been determined. Clinical correlation is essential. Performed By: #### L 500.3600 ####[facility] [address] [place], [address] EST GFR - AA 64 mL/min Normal >60 [facility] Comment on above: Result Comment: Afri can Yemeni GFR Calc Performed By: #### L [id number] ####[facility] [address] [place], [address] GFR/1.73 sq M.predicted among non-blacks MDRD (S/P/Bld) [Vol rate/Area] 53 mL/min/{1.73_m2} Low >60 [facility] Comment on above: Result Comment: Non- GFR Calc Performed By: #### L 500.3600 ####[facility] [address] [place], [address] Glucose [Mass/Vol] 103 mg/dL Normal 74-106 [facility] Comment on above: Result Comment: Fast ing Glucose result from 100 to 125 mg/dL suggests IMPAIRED HOMEOSTASIS per A.D.A. criteria. Performed By: #### L [id number] ####[facility] [address] [place], [address] Phosphate [Mass/Vol] 3.2 mg/dL Normal 2.5-4.9 [facility] Comment on above: Performed By: #### L 500.3600 ####[facility] [address] [place], [place], [address] Potassium [Moles/Vol] 4.4 mmol/L Normal 3.5-5.1 [facility] Comment on above: Performed By: #### L 500.3600 ####[facility] [address] [place], [address] Sodium [Moles/Vol] 137 mmol/L Normal 136-145 [facility] Comment on above: Performed By: #### L 500.3600 ####[facility] [address] [place], [place], [address] Urea nitrogen [Mass/Vol] 23 mg/dL High 7-18 [facility] Comment on above: Performed By: #### L [id number] ####[facility] [address] [place], [place], [address] CNOVon 12-04-2023 CNOV Office Visit (OBGYWM) ---- MADISYN BARKER ([id number]) 1955 F Date Time Provider Department 12/04/23 1:00 PM LA HARVEY OBGYWM During your visit today, we recorded the following information about you: La Harvey APRN.CNP 12/04/2023 2:02 PM Signed Rent And Housing Investigator offered: Patient declines. Hernandez is a 68 year old who presents for an annual gynecologic exam without complaints. Postmenopausal: hysterectomy HRT use: No. Last Pap: hysterectomy History of abnormal pap: No Last mammogram: 2018 normal Last mammogram 2023 pending done @ [facility] today History of abnormal mammogram: No Sexually active: Yes Pain with intercourse: No Postcoital bleeding: No OB History T2 L2 SAB2 IAB0 Ectopic0 Multiple0 Live Births0 Bias Binding Cutter History LMP: Hysterectomy Age at Menarche: Age at First : Age at Menopause: Bias Binding Cutter History Comments: Sexual Activity: Yes; Male; hysterectomy Contraception: Surgical PAST MEDICAL HISTORY Diagnosis Date Endometriosis Former smoker Hand eczema Hand and foot eczema Irritable bowel syndrome Obesity, unspecified Osteopenia Psoriasis Psoriatic arthritis (HCC) Dr Smith Shortness of breath normal PFT 01/18/12 Vocal cord paralysis, unilateral partial abductor paralysis PAST SURGICAL HISTORY Procedure Laterality Date COLONOSCOPY FLX DX W/COLLJ SPEC WHEN PFRMD 04/14/08 repeat due 2017 COLONOSCOPY FLX DX W/COLLJ SPEC WHEN PFRMD 06/05/2018 Colonoscopy PAST SURGICAL HISTORY OF tubal sterilization PAST SURGICAL HISTORY OF 06/2000 echocardiogram VAGINAL HYSTERECTOMY UTERUS 250 GM/< 1990 ovaries intact, endometriosis FAMILY HISTORY Problem Relation Age of Onset Heart Mother valve disorder Diabetes Mother Stroke Mother Heart Father [place] Heart Brother Heart Brother Heart Sister pacemaker Diabetes Sister Heart Sister [place] Heart Brother SOCIAL HISTORY Social History Tobacco Use Smoking status: Former Packs/day: 0.50 Years: 15.00 Additional pack years: 0.00 Total pack years: 7.50 Types: Cigarettes Quit date: 03/03/2008 Years since quittin.7 Smokeless tobacco: Never Vaping Use Vaping Use: Never used Substance Use Topics Alcohol use: Yes Alcohol/week: 1.0 standard drink of alcohol Types: 1 Glasses of Wine (5oz) per week Drug use: No REVIEW OF SYSTEMS Abdomen: No abdominal pain, nausea, vomiting, diarrhea, or constipation. No bloating, early satiety, indigestion, or increased flatulence. Bladder: No dysuria, gross hematuria, urinary frequency, urinary urgency, + rare incontinence Breast: No breast lumps, nipple d/c, overlying skin changes, redness or skin retraction Allergies and current medication updated:Yes EXAM: There were no vitals taken for this visit. GENERAL: pleasant, female in no apparent distress HEENT: Normocephalic, atraumatic, mucus membranes moist, and no lesions NECK: Supple, full range of motion, no adenopathy, and thyroid normal DERMATOLOGY: Normal, without lesions, non-icteric, and non-hirsute BREAST: soft, non-tender, symmetric, no dominant mass, normal nipple-areolar complex, no lymphadenopathy, and no nipple discharge CHEST: Normal inspiratory effort ABDOMEN: soft, non-tender, and no masses PELVIC: external genitalia normal, normal Bartholin's glands, urethra, Cecilia's glands, no vulvar lesions, physiologic discharge present, normal appearing perineal body and perianal region, cervix surgically absent BIMANUAL: no adnexal masses, non-tender, and uterus surgically absent RECTOVAGINAL: deferred. NEURO: alert and oriented x3,exam grossly non-focal EXTREMITIES: normal ASSESSMENT/PLAN: 1) Health maintenance: Pap/HPV screening no longer needed Mammogram up to date Nutrition, exercise and routine health maintenance exams reviewed. Calcium/Vitamin D supplementation information provided. Colon cancer screening: up to date with screening 2) Follow up one year or sooner as needed La Harvey APRN.VP PRODUCT Allergies As of Date: 12/04/2023 Noted Allergy Reaction ANAPROX (NAPROXEN SODIUM) 05/01/2006 ENBREL (ETANERCEPT) 05/16/2011 14 - Other: See Comments Comments: Joint swelling asia [Other] 05/01/2006 PENICILLINS 05/01/2006 8 - GI Upset Comments: has an intollerance RELAFEN (NABUMETONE) 05/01/2006 SULFA (SULFONAMIDE ANTIBIOTICS) 12/02/2015 8 - GI Upset VOLTAREN (DICLOFENAC SODIUM) 10/19/2016 16 - Unknown Date Reviewed: 12/04/2023 Reviewed by: Yana Erwin MA - Fully Assessed Reason for Visit: Yearly Exam [187] Primary Visit Diagnosis:Encounter for gynecological examination (general) (routine) without abnormal findings [Z01.419] Other Visit Diagnosis:Encounter for screening mammogram for breast cancer [Z12.31] Order(s):REMI SCREENING W JOELLE [[id number]] Order #: [id number] FUTURE Prescriptions as of 12/04/2023 - meloxic (more content not included)... Normal [facility] T-SPOT TBon 12-15-2022 NIL[NEG]CONTROL SPOT COUNT Passed Normal [facility] Comment on above: Performed By: #### T SPOT #### [facility] [address] [place] [id number] PANEL A SPOT COUNT 0 Normal [facility] Comment on above: Performed By: #### T SPOT #### [facility] [address] [place] [address] PANEL B SPOT COUNT 0 Normal [facility] Comment on above: Performed By: #### T SPOT #### [facility] [address] [place] [address] POS CONTROL SPOT COUNT Passed Normal [facility] Comment on above: Performed By: #### T SPOT #### [facility] [address] [place] [address] T-SPOT.TB INTERP Negative Normal Normal Valu e: Negative [facility] Comment on above: Result Comment: A ne gative test result does not exclude the possibility of exposure to or infection with Mycobacterium tuberculosis (M. tuberculosis). Patients with recent exposure to TB infected individuals exhibiting a negative T-SPOT.TB result should be considered for retesting within 6 weeks or if other relevant clinical symptoms indicate. Results from T-SPOT.TB testing must be used in conjunction with each individual's epidemiological history, current medical status, and results of other diagnostic evaluations. The T-SPOT.TB test is qualitative and results are reported as positive, borderline or negative, given that the test controls perform as expected. In line with the Centers for Disease Control and Prevention's 2010 recommendation to report quantitative measurements alongside the qualitative result, the laboratory provides spot counts for informational purposes only. The T-SPOT.TB test should not be interpreted as a quantitative test. Performed By: #### T SPOT #### [facility] [address] [place] [address] Laboratory - Chemistry and C hemistry - challengeOrdered By: Dr. Jackson on 12-12-2022 Free T4 [Mass/Vol] 0.88 ng/dL 0.76-1.46 [facility] No Panel InformationOrdered By: Dr. Jackson on 12-12-2022 Thyroid Stimulating Hormone (TSH) 3.32 uIU/mL 0.358-3.74 [facility] Serum or plasma progesterone measurement (mass/volume)on 06-09-2022 Progesterone [Mass/Vol] 0.33 ng/mL See Comment [facility] Work Phone: Comment on above: Progesterone Referen ce Table: UNITS Female: Follicular 0.15 - 1.40 ng/mL Luteal 3.34 - 25.56 ng/mL Mid-luteal 4.44 - 28.03 ng/mL Postmenopausal 0.0 - 0.73 ng/mL : 1st Trimester 11.22 - 90.00 ng/mL 2nd Trimester 25.55 - 89.40 ng/mL 3rd Trimester 48.40 -422.50 ng/mL Basophil percentageon 2021 Testosterone [Mass/Vol] 53.15 ng/dL [facility] Work Phone: Comment on above: CENTRAL 90% REFERENC E RANGES MALE AGE <50 197.44 - 669.58 ng/dL MALE AGE > or = 50 187.72 - 684.19 ng/dL FEMALE AGE <50 8.38 - 35.01 ng/dL FEMALE AGE > or = 50 <7.00 - 35.92 ng/dL Effective as of 01/18/21 No Panel Informationon 02-24 Dehydroepiandrosterone Sulfate 86.9 ug/dL 20.4-186.6 [facility] Work Phone: Comment on above: Performed at: [address] Director: Matheus Hamilton PhD, Phone: [phone] Serum or plasma estradiol (E 2) measurement (mass/volume)on 02-24-2022 E2 [Mass/Vol] 27.2 pg/mL [facility] Work Phone: Comment on above: NORMAL REFERENCE RAN GES FEMALE FOLLICULAR 21.4 - 164.8 pg/mL MID-CYCLE PEAK 49.9 - 367.2 pg/mL LUTEAL 40.2 - 259.0 pg/mL POST-MENOPAUSAL ON MHT <11.0 - 462.1 pg/mL NOT ON MHT <11.0 - 58.3 pg/mL MALE <11.0 - 52.5 pg/mL NOTE:[employer] HAS CONFIRMED THE DRUG FULVETRANT (FASLODEX) MAY CAUSE FALSELY ELEVATED ESTRADIOL RESULTS WHEN USING THIS TEST METHOD. IF PATIENT IS TAKING FULVESTRANT AN ALTERNATIVE METHOD SHOULD BE USED TO DETERMINE ESTRADIOL CONCENTRATION. Serum or plasma progesterone measurement (mass/volume)on 02-24-2022 Progesterone [Mass/Vol] 10.80 ng/mL See Comment [facility] Work Phone: Comment on above: Progesterone Referen ce Table: UNITS Female: Follicular 0.15 - 1.40 ng/mL Luteal 3.34 - 25.56 ng/mL Mid-luteal 4.44 - 28.03 ng/mL Postmenopausal 0.0 - 0.73 ng/mL : 1st Trimester 11.22 - 90.00 ng/mL 2nd Trimester 25.55 - 89.40 ng/mL 3rd Trimester 48.40 -422.50 ng/mL Absolute lymphocyte counton 07-20-2021 Lymphocytes Auto (Unsp spec) [#/Vol] 2.24 10*3/uL 0.83-4.51 [facility] Work Phone: Basophil percentageon 2021 Basophils/100 WBC (Bld) 1.2 % 0-1 [facility] Work Phone: Bilirubin [Mass/Vol] 0.40 mg/dL 0.20-1.00 [facility] Work Phone: Comment on above: For patients on eltr ombopag therapy, use of Dimension [place] TBIL is not recommended. Chloride [Moles/Vol] 105 mmol/L 98-107 [facility] Work Phone: Cholesterol [Mass/Vol] 160 mg/dL <200 [facility] Work Phone: Comment on above: <200 mg/dL Desirable 200-240 mg/dL Borderline >240 mg/dL High Risk Eosinophils/100 WBC (Bld) 6.4 % 0-5 [facility] Work Phone: Glucose [Mass/Vol] 115 mg/dL 74-106 [facility] Work Phone: Comment on above: Fasting Glucose resu lt from 100 to 125 mg/dL suggests IMPAIRED HOMEOSTASIS per A.D.A. criteria. Neutrophils (Bld) [#/Vol] 4.2 10*3/uL 2.0-7.7 [facility] Work Phone: Neutrophils/100 WBC (Bld) 54.4 % 47-70 [facility] Work Phone: Potassium [Moles/Vol] 4.3 mmol/L 3.5-5.1 [facility] Work Phone: [phone] Protein [Mass/Vol] 7.7 g/dL 6.4-8.2 [facility] Work Phone: Sodium [Moles/Vol] 137 mmol/L 136-145 [facility] Work Phone: Triglyceride [Mass/Vol] 90 mg/dL [facility] Work Phone: Comment on above: The drugs N-Acetylcy steine and Metamizole may falsely depress this assay.Serum Triglycerides Reference Interval Normal <150 mg/dL Borderline high 150 - 199 mg/dL High 200 - 499 mg/dL Very High > or = 500 mg/dL WBC (Bld) [#/Vol] 7.7 10*3/uL 4.4-11.0 [facility] Work Phone: Blood erythrocytes count (nu mber/volume)on 07-20-2021 RBC (Bld) [#/Vol] 4.77 10*6/uL 4.2-5.4 [facility] Work Phone: Blood hemoglobin measurement (mass/volume)on 07-20-2021 Hemoglobin (Bld) [Mass/Vol] 15.2 g/dL 12.0-15.0 [facility] Work Phone: Blood lymphocytes/100 leukoc yteson 07-20-2021 Lymphocytes/100 WBC (Bld) 29.2 % 19-41 [facility] Work Phone: Blood monocytes/100 leukocyt eson 07-20-2021 Monocytes/100 WBC (Bld) 8.1 % 0-10 [facility] Work Phone: Blood platelet mean volumeon 07-20-2021 Platelet mean volume (Bld) [Entitic vol] 11.3 fL 6.2-12.0 [facility] Work Phone: Determination of erythrocyte mean corpuscular volume (MCV)on 07-20-2021 MCV (RBC) [Entitic vol] 94.5 fL 81-99 [facility] Work Phone: Hematocrit Auto (Bld) [Volum e fraction]on 07-20-2021 Hematocrit (Bld) [Volume fraction] 45.1 % 37-47 [facility] Work Phone: Laboratory - Chemistry and C hemistry - challengeon 07-20-2021 ALP [Catalytic activity/Vol] 29 U/L 45-117 [facility] Work Phone: ALT [Catalytic activity/Vol] 31 U/L 13-56 [facility] Work Phone: CO2 [Moles/Vol] 25.0 mmol/L 21.0-32.0 [facility] Work Phone: Free T4 [Mass/Vol] 0.84 ng/dL 0.76-1.46 [facility] Work Phone: Globulin (S) [Mass/Vol] 3.7 g/dL 2.2-4.2 [facility] Work Phone: Urea nitrogen/Creatinine [Mass ratio] 19.0 mg/mg 10-20 [facility] Work Phone: Laboratory - Hematology and Cell countson 07-20-2021 Erythrocyte distribution width (RBC) [Entitic vol] 45.4 fL 35.1-43.9 [facility] Work Phone: Erythrocyte distribution width (RBC) [Ratio] 13.2 % 11.6-14.6 [facility] Work Phone: Immature granulocytes/100 WBC (Bld) 0.700 % 0.0-0.9 [facility] Work Phone: Comment on above: IG% - Immature Granu locytes (promyelocytes, myelocytes and metamyelocytes) > 1% indicates that a LEFT SHIFT is Present. MCH (RBC) [Entitic mass] 31.9 pg 27.0-32.0 [facility] Work Phone: Nucleated RBC/100 WBC (Bld) [Ratio] 0 % 0-5 [facility] Work Phone: MCHC Auto (RBC) [Mass/Vol]on 07-20-2021 MCHC (RBC) [Mass/Vol] 33.7 g/dL 32-36 [facility] Work Phone: No Panel Informationon 07-20 Estimated GFR (MDRD) Amer 81 mL/min >60 [facility] Work Phone: Comment on above: GFR Calc Estimated GFR (MDRD) Non-Af Amer 67 mL/min >60 [facility] Work Phone: Comment on above: Non- GFR Calc Thyroid Stimulating Hormone (TSH) 2.84 uIU/mL 0.358-3.74 [facility] Work Phone: Vitamin D 25-Hydroxy 70.2 ng/mL [facility] Work Phone: Comment on above: Vitamin D 25(OH) Sta tus Range Deficiency <20 ng/mL (50nmol/L) Insufficiency 20 - 30 ng/mL (50 - 75 nmol/L) Sufficiency 30 - 100 ng/mL (75 - 250 nmol/L) Toxicity >100 ng/mL (>250 nmol/L) Platelets bldon 07-20-2021 Platelets (Bld) [#/Vol] 334 10*3/uL 150-450 [facility] Work Phone: Serum or plasma albumin martin urement (mass/volume)on 07-20-2021 Albumin [Mass/Vol] 4.0 g/dL 3.2-5.0 [facility] Work Phone: Serum or plasma albumin/glob ulin mass ratioon 07-20-2021 Albumin/Globulin [Mass ratio] 1.1 {ratio} 0.9-2.4 [facility] Work Phone: Serum or plasma calcium martin urement (mass/volume)on 07-20-2021 Calcium [Mass/Vol] 9.1 mg/dL 8.5-10.1 [facility] Work Phone: Serum or plasma cholesterol in HDL measurement (mass/volume)on 07-20-2021 Cholesterol in HDL [Mass/Vol] 52 mg/dL [facility] Work Phone: Comment on above: The drugs N-Acetylcy steine and Metamizole may falsely depress this assay. Reference Range HDL <40 mg/dL Low HDL Cholesterol HDL >or= 60 mg/dL High HDL Cholesterol Serum or plasma cholesterol in VLDL measurement (mass/volume)on 07-20-2021 Cholesterol in VLDL [Mass/Vol] 18 mg/dL 5-40 [facility] Work Phone: Serum or plasma creatinine m easurement (mass/volume)on 07-20-2021 Creatinine [Mass/Vol] 0.90 mg/dL 0.55-1.02 [facility] Work Phone: Comment on above: The validity of the calculated GFR & GFRAA in patients over 70 years has not been determined. Clinical correlation is essential. Serum or plasma low density lipoprotein (LDL) cholesterol measurement (mass/volume)on 07-20-2021 Cholesterol in LDL [Mass/Vol] 90 mg/dL 0-130 [facility] Work Phone: Serum or plasma urea nitroge n measurement (mass/volume)on 07-20-2021 Urea nitrogen [Mass/Vol] 17 mg/dL 7-18 [facility] Work Phone: Thin prep Papanicolaou smear with manual screeningon 07-20-2021 Thin prep Papanicolaou smear with manual screening 16 U/L 15-37 [facility] Work Phone: Thin prep Papanicolaou smear with manual screening 7 5-15 [facility] Work Phone: Vital Signs Date Time Vital Sign Value Performing Clinician Facility 02-13-2025 09:20-0400 Body height 167.[address] Álvaro Jackson DO Work Phone: [facility] 02-13-2025 09:20-0400 Body mass index (BMI) [Ratio] 25.2 kg/m2 Dr. Álvaro Jackson DO Work Phone: [facility] 02-13-2025 09:20-0400 Body weight 70.[address] Álvaro Jackson DO Work Phone: [facility] 2024 10:01-0400 Body height 167.[address] Álvaro Jackson DO Work Phone: [facility] 2024 09:55-0400 Body mass index (BMI) [Ratio] 27.6 kg/m2 Dr. Álvaro Jackson DO Work Phone: [facility] 2024 09:55-0400 Body weight 77.[address] Álvaro Jackson DO Work Phone: [facility] 08-21-2024 13:45-0500 Body temperature 97.8 [degF] Dr. Álvaro Jackson DO Work Phone: [facility] 08-21-2024 13:45-0500 Diastolic blood pressure 90 mm[Hg] Dr. Álvaro Jackson DO Work Phone: [facility] 08-21-2024 13:45-0500 Heart rate 88 /min Dr. Álvaro Jackson DO Work Phone: [facility] 08-21-2024 13:45-0500 Respiratory rate 16 /min Dr. Álvaro Jackson DO Work Phone: [facility] 08-21-2024 13:45-0500 SaO2% (BldA) [Mass fraction] 100 % Dr. Álvaro Jackson DO Work Phone: [facility] 08-21-2024 13:45-0500 Systolic blood pressure 141 mm[Hg] Dr. Álvaro Jackson DO Work Phone: [facility] 08-20-2024 15:46-0500 Body mass index (BMI) [Ratio] 26.3 kg/m2 Dr. Álvaro Jackson DO Work Phone: [facility] 08-20-2024 15:46-0500 Body weight [address] Álvaro Jackson DO Work Phone: [facility] 08-20-2024 12:30-0500 Inhaled oxygen flow rate 4 L/min Dr. Álvaro Jackson DO Work Phone: [facility] 08-20-2024 11:30-0500 Inhaled oxygen concentration 4 % Dr. Álvaro Jackson DO Work Phone: [facility] 08-15-2024 08:25-0500 Body temperature 97.81 [degF] Sharmila Fonseca MD Work Phone: [facility] 08-15-2024 08:25-0500 Diastolic blood pressure 78 mm[Hg] Sharmila Fonseca MD Work Phone: [facility] 08-15-2024 08:25-0500 Heart rate 93 /min Sharmila Fonseca MD Work Phone: [facility] 08-15-2024 08:25-0500 Systolic blood pressure 144 mm[Hg] Sharmila Fonseca MD Work Phone: [facility] 06-24-2022 06:18-0500 Body height 165.1 cm [facility] Work Phone: 06-24-2022 06:18-0500 Body mass index (BMI) [Ratio] 29.9 kg/m2 [facility] Work Phone: 06-24-2022 06:18-0500 Body temperature 98.3 [degF] [facility] Work Phone: 06-24-2022 06:18-0500 Body weight 81.64 kg [facility] Work Phone: 06-24-2022 06:18-0500 Diastolic blood pressure 101 mm[Hg] [facility] Work Phone: 06-24-2022 06:18-0500 Heart rate 97 /min [facility] Work Phone: 06-24-2022 06:18-0500 Respiratory rate 18 /min [facility] Work Phone: 06-24-2022 06:18-0500 SaO2% (BldA) [Mass fraction] 94 % [facility] Work Phone: 06-24-2022 06:18-0500 Systolic blood pressure 148 mm[Hg] [facility] Work Phone: 09-29-2015 09:18-0400 Diastolic blood pressure 92 mm[Hg] [facility] 09-29-2015 09:18-0400 Systolic blood pressure 128 mm[Hg] [facility] 09-29-2015 08:18-0400 Diastolic blood pressure 92 mm[Hg] [facility] 09-29-2015 08:18-0400 Systolic blood pressure 128 mm[Hg] [facility] Encounters Encounter Date Encounter Type Care Provider Facility Start: 03-13-2025 ambulatory [facility] Facility: [facility] Start: 02-27-2025 End: 02-27-[address] Álvaro Jackson DO Work Phone: -Laboratory Start: 02-27-2025 End: 02-27-[address] Álvaro Jackson DO -Laboratory Work Phone: Start: 02-27-2025 End: 02-27-2025 ambulatory Álvaro Azalia Facility:[facility] Start: 02-13-2025 End: 02-13-[address] Jone Abarca MD -[facility] Start: 02-13-2025 End: 02-13-[address] Álvaro Jackson DO Work Phone: -[facility] Start: 12-09-2024 End: 12-09-2024 Office outpatient visit 15 minutes April Schmitt MD PhD Work Phone: [facility] Comment on above: Psoriasis Start: 12-09-2024 End: 12-09-2024 ambulatory APRIL Hernandez JENNIFER [facility] Start: 12-05-2024 End: 12-05-2024 ambulatory La Harvey APRN.VP PRODUCT Work Phone: OB/Gynecology Comment on above: [place] Start: 11-11-2024 End: 11-11-[address] Jone Abarca MD -[facility] Start: 11-11-2024 End: 11-11-[address] Álvaro Jackson DO Work Phone: [facility] Work Phone: Start: 09-30-2024 End: 09-30-[address] Anabella Styles MD -[facility] Work Phone: Start: 09-30-2024 End: 09-30-2024 ambulatory [facility] Facility:[facility] Start: 09-29-2024 End: 09-29-[address] Álvaro Jackson DO Work Phone: [facility] Work Phone: Start: 09-29-2024 End: 09-29-2024 Discharged Recurring Etelvina GALLO -Physical Therapy Work Phone: Start: 2024 End: 2024 Patient encounter procedure Etelvina GALLO -[facility] Work Phone: Start: 2024 End: 2024 ambulatory [facility] Facility:[facility] Start: 08-29-2024 Encounter for other preprocedural examination Anabella Styles [facility] Start: 08-21-2024 Non-patient / Non-visit Dr. Anabella conn MD -[facility] Start: 08-20-2024 Non-patient / Non-visit Dr. Dean rios DO -[facility] Work Phone: Start: 08-20-2024 ambulatory Garett Cheema Fac ility:[facility] Start: 08-20-2024 End: 08-21-2024 Evaluation and management of inpatient Dr. Anabella Styles MD -[facility] 3 Work Phone: Start: 08-20-2024 Non-patient / Non-visit Dr. Anabella conn MD -[facility] Start: 08-20-2024 ambulatory Dean Simons Facility:[facility] Start: 08-15-2024 End: 08-15-[address] Anabella Styles MD -[facility] Work Phone: Start: 08-15-2024 End: 08-15-2024 ambulatory [facility] Facility:[facility] Start: 08-15-2024 End: 08-15-2024 ambulatory SHARMILA FONSECA Facility:[facility] Start: 08-15-2024 End: 08-15-2024 Office outpatient new 45 minutes Sharmila Fonseca MD Work Phone: [facility] Comment on above: Spinal stenosis of l umbar region with neurogenic claudication (Primary Dx); Radiculopathy, lumbar region Start: 07-29-2024 End: 07-29-2024 ambulatory [facility] Facility:[facility] Start: 07-29-2024 End: 07-29-2024 Non-patient / Non-visit Dr. Jone Abarca MD -[facility] Work Phone: Start: 07-18-2024 End: 07-18-2024 Telephone encounter Sharmila Fonseca MD Work Phone: Spine Medicine [facility] Start: 07-08-2024 End: 07-08-[address] Anabella Styles MD -[facility] Work Phone: Start: 07-08-2024 End: 07-08-2024 ambulatory [facility] Facility:[facility] Start: 04-08-2024 End: 04-08-2024 ambulatory [facility] Facility:[facility] Start: 04-03-2024 End: 04-03-2024 ambulatory Álvaro ChaconAzalia Facility:[facility] Start: 04-02-2024 End: 04-02-2024 ambulatory [facility] Facility:[facility] Start: 03-29-2024 End: 03-29-2024 ambulatory [facility] Facility:[facility] Start: 03-10-2024 End: 03-10-2024 ambulatory MAYCO CASTILLO Facility:[facility] Start: 12-04-2023 End: 12-04-2023 ambulatory LA HARVEY Facility:[facility] Start: 12-04-2023 End: 12-04-2023 Patient encounter procedure La Harvey NASRIN.VP PRODUCT Work Phone: OB/Gynecology Comment on above: Encounter for gyneco logical examination (general) (routine) without abnormal findings (Primary Dx); Encounter for screening mammogram for breast cancer Start: 12-04-2023 End: 12-04-2023 Patient encounter status La Harvey AUTHORIZATION REPRESENTATIVE.VP PRODUCT Work Phone: [facility] Start: 11-28-2023 End: 11-28-2023 Office outpatient visit 15 minutes April Schmitt MD PhD Work Phone: [facility] Comment on above: Psoriasis (Primary D x); Long-term current use of immunomodulator Start: 12-13-2022 ambulatory Sana SCHMITT Faci lity:[id number] Start: 12-12-2022 End: 12-12-2022 ambulatory [facility] Work Phone: Start: 12-12-2022 End: 12-12-2022 Patient encounter procedure [facility]-Laboratory,F uture Start: 12-11-2022 End: 12-11-2022 ambulatory [facility] Work Phone: Start: 12-11-2022 End: 12-11-2022 Patient encounter procedure [facility]-MRI - [facility] Start: 06-24-2022 End: 06-24-2022 Emergency department patient visit [facility]-Emergency Department Start: 06-09-2022 End: 06-09-2022 ambulatory [facility] Work Phone: Start: 06-09-2022 End: 06-09-2022 Patient encounter procedure [facility]-Laboratory Start: 06-05-2022 End: 06-05-2022 Patient encounter procedure [facility]-Outpatient Breast Imaging Start: 02-24-2022 End: 02-24-2022 ambulatory [facility] Work Phone: Start: 02-24-2022 End: 02-24-2022 Patient encounter procedure [facility]-Laboratory Start: 01-04-[address] Álvaro Chaconutzman Facility:[id number] Start: 01-04-2022 Office outpatient vi sit 15 minutes April Schmitt Dept. of Dermatology Start: 07-20-2021 End: 07-20-2021 Patient encounter procedure [facility] Start: 03-29-2021 End: 03-29-2021 Office outpatient visit 15 minutes Sandra Alex Dept. of Dermatology Start: 04-29-2020 End: 04-30-2020 Office outpatient visit 15 minutes Sandra Alex Dept[facility] of Dermatology Start: 12-11-2018 End: 12-11-2018 Office outpatient visit 15 minutes Sandra Aelx Dept. of Dermatology Start: 12-05-2017 End: 12-05-2017 Office outpatient visit 15 minutes Sandra Alex Dept[facility] of D[facility]atology Start: 03-21-2017 End: 03-21-2017 Office outpatient visit 15 minutes Sandra Alex Dept[facility] of [facility]atology Start: 02-28-2017 End: 02-28-2017 Office outpatient visit 15 minutes Sandra Alex Dept[facility] of Dermatology Start: 08-29-2016 End: 08-30-2016 Office outpatient visit 15 minutes Sandra Alex Dept[facility] of D[facility]atology Start: 03-08-2016 End: 03-08-2016 Office outpatient visit 15 minutes Sandra Alex Dept[facility] of D[facility]atology Start: 09-29-2015 End: 09-29-2015 Office outpatient visit 15 minutes Sandra Alex [facility] of Dermatology Start: 05-04-2015 End: 05-05-2015 Office outpatient visit 15 minutes Sandra Alex [facility] of D[facility]atology Start: 05-04-2015 End: 05-05-2015 Office outpatient visit 25 minutes Sandra Alex Dept[facility] of D[facility]atology Start: 11-09-2014 End: 11-09-2014 Office outpatient visit 15 minutes Sandra Alex Dept[facility] of D[facility]atology Start: 07-12-2014 End: 07-13-2014 Office outpatient visit 15 minutes Sandra Alex Dept[facility] of D[facility]atology Start: 07-12-2014 End: 07-13-2014 Office outpatient visit 25 minutes Sandra Alex Dept[facility] of D[facility]atology Start: 05-10-2014 End: 05-11-2014 Office outpatient visit 25 minutes Sandra Alex Dept[facility] of Dermatology Start: 03-16-2014 End: 03-16-2014 Office outpatient visit 15 minutes Sandra Alex Dept[facility] of Dermatology Start: 03-16-2014 End: 03-16-2014 Office outpatient visit 25 minutes Sandra Alex Dept. of Dermatology Start: 12-14-2008 End: 07-16-2015 Patient encounter status [place] AUTHORIZATION REPRESENTATIVE.VP PRODUCT Work Phone: [facility] Procedures Date Procedure Procedure Detail Performing Clinician Start: 02-13-2025 X-ray of lumbosacral spine Dr. Álvaro Jackson DO Work Phone: Start: 11-11-2024 X-ray of lumbar spin e, two or three views Dr. Álvaro Jackson DO Work Phone: Start: 09-30-2024 X-ray of lumbar spin e, two or three views Dr. Álvaro Jackson DO Work Phone: Start: 2024 X-ray of lumbar spin e, two or three views Dr. Álvaro Jackson DO Work Phone: Start: 08-21-[address] Álvaro Jackson DO Work Phone: Start: 08-21-2024 X-ray of lumbar spin e, two or three views Dr. Álavro Jackson DO Work Phone: Start: 08-20-2024 Fluoroscopic guidance Bud Jackson DO Work Phone: Start: 08-20-2024 X-ray of spine, single view Dr. Álvaro Jackson DO Work Phone: Start: 08-20-[address] Martinez Jackson DO Work Phone: Start: 07-29-2024 Methicillin resistan t Staphylococcus aureus screening test Dr. Álvaro Jackson DO Work Phone: Start: 07-29-2024 Hepatitis A virus an tibody, total measurement Dr. Álvaro Jackson DO Work Phone: Comment on above: Comment: The HAV tot al antibody assay detects both IgG andIgM but does not differentiate between them. A negativeresult suggests susceptibility to infection. A positiveresult could be due to vaccination, previously resolvedinfection or active infection. Testing for HAV IgM shouldbe performed if active HAV infection is suspected. [facility]offers profiles that will automatically reflex positive HAVtotal antibody results to IgM (e.g., panel #[id number] HAVAntibody w/ Rfx).Performed at: [address] [id number] Director: Matheus Hamilton PhD, Phone: [phone] Start: 07-29-2024 Hepatitis C antibody measurement Dr. Álvaro Jackson DO Work Phone: Comment on above: Non Reactive: < 0.8 Equivocal: >/= 0.8 to < 1.0 Reactive: >/= 1.0The CDC requires that a reactive/equivocal HCV antibody result be sent out for confirmation. HCV Quant by PCR testing. Start: 07-29-2024 Measurement of renal function Dr. Álvaro Jackson DO Work Phone: Comment on above: GFR Calc Start: 12-11-2022 MRI of joint of lowe r extremity Start: 06-05-2022 Screening mammography Start: 01-04-2022 Established Office V isit Level 4 C Jim Bae Start: 05-09-2021 Mammography April allen MD PhD Work Phone: Start: 06-05-2018 Colonoscopy [facility] AUTHORIZATION REPRESENTATIVE.VP PRODUCT Work Phone: Start: 12-05-2017 End: 12-05-2017 Established Office Visit Level 3 C Esa Perry Start: 03-21-2017 End: 03-21-2017 Established Office Visit Level 3 Sandra Johnson Start: 03-21-2017 End: 03-21-2017 Therapeutic prophylactic/dx injection subq/im Sandra Johnson Start: 02-28-2017 End: 02-28-2017 Established Office Visit Level 4 C Suzan Castorena Start: 12-13-2016 Lipid 1996 panel - S boom or Plasma [place] AUTHORIZATION REPRESENTATIVE.VP PRODUCT Work Phone: Start: 08-29-2016 End: 08-30-2016 Established Office Visit Level 3 C Benedict Grande Start: 03-08-2016 End: 03-08-2016 Established Office Visit Level 4 C Yasmeen Herbert Start: 09-29-2015 End: 09-29-2015 Yasmeen Herbert Established Office Visit Level 4 C 25 minutes of time was spent with the patient today, the majority of which was spent in counseling and coordination of care. Sandra Johnson Plan of Treatment Date Care Activity Detail Author Start: 09-03-2031 RSV High Risk: (Elderly (60+) or Population) (1 - 1-dose 75+ series) RSV High Risk: (Elderly (60+) or Population) (1 - 1-dose 75+ series) [facility] Start: 06-05-2028 Screening for malignant neoplasm [facility] Start: 02-23-2025 Influenza vaccination Influenza Vaccine (Season Ended) [facility] Start: 02-13-2025 X-ray of lumbosacral spine L/S Spine Min 4 Views [facility] Start: 02-13-2025 XR Spine Lumbar and Sacrum GE 4 Views [facility] Start: 12-09-2024 End: 12-09-2025 Mycobacterium tuberculosis stimulated gamma interferon and spot count panel - Blood T-SPOT (Tb) Lab Routine Psoriasis Expected: 12/09/2024 (Approximate), Expires: 12/09/2025 [facility] Service Area Work Phone: Comment on above: Expected: 12/09/2024 (Approximate), Expi res: 12/09/2025 Start: 12-05-2024 End: 12-05-2024 Patient encounter procedure OB/Gynecolog y Comment on above: Annual Encounter for screen ing mammogram for breast cancer [Z12.31] Start: 12-02-2024 End: 12-02-2024 Telemedicine consultation with patient 12/02/2024 9:20 AM EDT Telemedicine [address] [address] April Schmitt MD PhD [id number] [address] Department of Dermatology [place], [place] [id number] [facility] Start: 11-11-2024 X-ray of lumbar spine, two or three views Lumbar Spine 2 or 3 Views [facility] Start: 11-11-2024 XR Lumbar spine 2 or 3 Views [facility] Start: 2024 Patient referral [facility] Work Phone: Start: 08-21-2024 Patient discharge [facility] Start: 08-21-2024 Catheterization of vein [facility] Start: 08-20-2024 Following clinical pathway protocol [facility] Start: 08-20-2024 Application of intermittent pneumatic compression device [facility] Start: 08-20-2024 Application of device [facility] Start: 08-20-2024 Consultation [facility] Start: 08-20-2024 Admission procedure [facility] Start: 08-20-2024 Provision of activity privileges [facility] Start: 08-20-2024 Referral to occupational therapist [facility] Start: 08-20-2024 Assessment of risk of venous thromboembolism [facility] Start: 08-20-2024 Following clinical pathway protocol [facility] Start: 08-20-2024 Incentive spirometry [facility] Start: 08-20-2024 Introduction of urinary catheter [facility] Start: 08-20-2024 Measuring intake and output [facility] Start: 08-20-2024 Neurovascular assessment [facility] Start: 08-20-2024 Oxygen therapy [facility] Start: 08-20-2024 Patient education [facility] Start: 08-20-2024 Referral to service [facility] Start: 08-20-2024 Taking patient vital signs [facility] Start: 08-20-2024 End: 08-20-2024 [facility] Start: 08-15-2024 End: 08-15-2024 Patient encounter procedure 08/15/2024 8:40 AM EST Office Visit Spine Medicine [facility] [address] [place], [place] [id number] Sharmila Fonseca MD [facility] [place] [address] lower back pain Spine Medicine [facility] Comment on above: lower back pain Start: 06-25-2024 Advance Directive Discussion Advance Directive Discussion [facility] Start: 02-24-2024 COVID-19 Vaccine ( season) COVID-19 Vaccine () [facility] Start: 02-24-2024 Influenza vaccination [facility] Start: 11-28-2023 End: 11-27-2024 Mycobacterium tuberculosis stimulated gamma interferon and spot count panel - Blood T-Spot TB Lab Routine Long-term current use of immunomodulator Expected: 11/28/2023 (Approximate), Expires: 11/27/2024 [facility] Service Area Work Phone: Comment on above: Expected: 11/28/2023 (Approximate), Expi res: 11/27/2024 Start: 06-25-2023 Advance Directive Discussion Advance Directive [facility] Start: 06-25-2023 Behavioral Health Screening Behavioral Health Screening [facility] Start: 02-23-2023 COVID-19 Vaccine () COVID-19 Vaccine () [facility] Start: 05-09-2022 Screening for malignant neoplasm of breast [facility] Start: 12-13-2021 Lipid panel Lipid Screening [facility] Start: 09-23-2021 Medicare Annual Wellness Visit Medicare Annual Wellness Visit [facility] Start: 2021 Screening for osteoporosis Bone Density Screening [facility] Start: 10-20-2020 Covid-19 Vaccine (3 - Moderna risk series) Covid-19 Vaccine (3 - Moderna risk series) [facility] Start: 06-30-2018 Diabetes Screening Diabetes Screening [facility] Start: 01-28-2018 DTaP/Tdap/Td Vaccines (2 - Td or Tdap) DTaP/Tdap/Td Vaccines (2 - Td or Tdap) [facility] Start: 01-28-2018 Urine microalbumin profile DTaP,Tdap,Td Vaccine (2 - Td or Tdap) [facility] Start: 2016 RSV patients and/or patients aged 60+ years (1 - 1-dose 60+ series) RSV patients and/or patients aged 60+ years (1 - 1-dose 60+ series) [facility] Start: 2016 RSV Vaccine (1 - 1-dose 60+ series) RSV Vaccine (1 - 1-dose 60+ series) [facility] Start: 2016 RSV Vaccine (1 - Risk 60-74 years 1-dose series) RSV Vaccine (1 - Risk 60-74 years 1-dose series) [facility] Start: 2001 Screening for malignant neoplasm of colon [facility] Start: 1974 Anxiety Screening Anxiety Screening [facility] Start: 1974 Depression Screening Depression Screening [facility] Start: 1974 Hepatitis C screening Hepatitis C Screening [facility] Start: 1956 Lipid panel Lipid Panel [facility] Start: 1955 Medicare Annual Wellness Visit Medicare Annual Wellness Visit (AWV) [facility] Start: 1956 Screening for malignant neoplasm of colon [facility] Start: 1956 Screening for osteoporosis Bone Density Scan [facility] Start: 1956 Yearly Adult Physical Yearly Adult Physical [facility] End: 01-02-2025 DBT Breast - bilateral screening REMI SCREENING [facility] Radiology Routine Encounter for screening mammogram for breast cancer 1 Occurrences starting 12/04/2023 until 01/02/2025 [facility] Work Phone: Comment on above: 1 Occurrences starting 12/04/2023 until 01/02/2025 Electrocardiographic procedure [facility] Patient Education [facility] Work Phone: Patient referral [facility] Work Phone: Immunizations Immunization Date Immunization Notes Care Provider Zaheer ramires 09-22-2020 COVID-19 original vaccine, full dose, monovalent (MODERNA) [place] AUTHORIZATION REPRESENTATIVE.VP PRODUCT Work Phone: [facility] 08-25-2020 COVID-19 original vaccine, full dose, monovalent (MODERNA) [place] AUTHORIZATION REPRESENTATIVE.VP PRODUCT Work Phone: [facility] 01-29-2008 tetanus toxoid, reduced diphtheria toxoid, and acellular pertussis vaccine, adsorbed [place] AUTHORIZATION REPRESENTATIVE.VP PRODUCT Work Phone: [facility] Work Phone: 1955 pneumococcal conjuga te vaccine, 7 valent Sandra Johnson Dept. of Dermatology Payers Date Payer Category Payer Medicare PLAN G 2024 Self-pay [id number] 2023 Unknown GENERIC COMMERCI AL GENERIC COMMERCIAL [id number] 2023-[facility] [phone] [place] [address] [id number] 2021 Private Health Insurance [id number] 2021 Unknown [id number] 2021 Medicare [id number]. [id number] 2021 Medicare [id number] 2010 Private Health Insurance [id number] 1955 Unknown [id number] 2.0.1.447383.3.579. 2.356 1956 Unknown [id number] 2.0.1.641214.3.579. 2.356 1956 Unknown [id number] 2.840.1.435472.3.579. 2.1244 Medicare [id number] Unknown [id number] 2.840.1.054244.3.579. 2.462 Unknown [id number] 2.840.1.458328.3.579. 2.462 Unknown [id number] 2.840.1.150740.3.579. 2.462 Unknown [id number] 2.16840.1.608587.3.579. 2.462 Unknown [id number] 2.16840.1.384050.3.579. 2.462 Unknown [id number] 2.16840.1.752970.3.579. 2.462 Unknown [id number] 2.16840.1.925304.3.579. 2.462 Unknown [id number] 2.16.840.1.033795.3.579. 2.462 Unknown [id number] 2.840.1.820406.3.579. 2.462 Unknown [id number] 2.16.840.1.721499.3.579. 2.462 Unknown [id number] 2.840.1.918348.3.579. 2.462 Unknown [id number] 2.840.1.055038.3.579. 2.462 Unknown [id number] 2.840.1.141886.3.579. 2.462 Unknown [id number] 2.840.1.164991.3.579. 2.462 Unknown [id number] 2.840.1.380224.3.579. 2.462 Unknown [id number] 2.840.1.205686.3.579. 2.462 Unknown [id number] 2.840.1.685589.3.579. 2.462 Unknown [id number] 2.840.1.286181.3.579. 2.462 Unknown [id number] 2.840.1.589800.3.579. 2.462 Unknown [id number] 2.840.1.566501.3.579. 2.462 Unknown [id number] 2.840.1.439428.3.579. 2.462 Unknown [id number] 2.840.1.937796.3.579. 2.462 Unknown [id number] 2.840.1.438108.3.579. 2.462 Unknown [id number] 2.840.1.487542.3.579. 2.462 Unknown [id number] 2.840.1.253234.3.579. 2.462 Unknown [id number] 2.840.1.455888.3.579. 2.462 Social History Date Type Detail Facility Start: 06-24-2022 End: 06-24-2022 [facility] Start: 1955 Sex Assigned At Female [facility] Start: 1955 Sex assigned at Not on file [facility] Work Phone: Start: 04-15-2020 End: 12-04-2023 Gender identity Not on file [facility] Start: 11-18-2023 End: 11-28-2023 Exposure to SARS-CoV-2 (event) Not sure [facility] Start: 06-22-2011 End: 2024 Tobacco smoking status DEIS Ex-smoker [facility] Work Phone: Start: 03-03-1993 End: 03-03-2008 History of tobacco use Current smoker [facility] Start: 03-03-1993 End: 03-03-2008 History of tobacco use Cigarette Smoker [facility] Start: 06-22-2011 End: 12-04-2023 Cigarettes smoked current (pack per day) - Reported 0.5 [facility] Start: 06-22-2011 Tobacco use and exposure Smoke less tobacco non-user [facility] Start: 12-04-2023 Alcohol intake Current drinke r of alcohol (finding) [facility] Do you belong to any clubs or organizations such as rastafari groups, unions, fraternal or athletic groups, or school groups? No [facility] Are you now , , , , never or living with a partner? [facility] How hard is it for y ou to pay for the very basics like food, housing, medical care, and heating Not hard at all [facility] Do you feel stress - tense, restless, nervous, or anxious, or unable to sleep at night because your mind is troubled all the time - these days [OSQ] Only a little [facility] (I/We) worried silke er (my/our) food would run out before (I/we) got money to buy more. Never true [facility] Start: 04-15-2020 Education 17 [facility] Start: 06-29-2008 Tobacco Comment trying to quit , states smokes approx 3.Quit February. [facility] Start: 09-29-2024 Sex Female (finding) [facility] Medical Equipment Procedure Code Equipment Code Equipment Origin al Text Equipment Identifier Dates Fusion, spine, lumbar, 360 degree, starting in supine position transitioning to prone [id number] COUGAR LS CAGE FDA Start: 08-20-2024 Fusion, spine, lumbar, 360 degree, starting in supine position transitioning to prone SET SCREWS FDA Start: 08-20-2024 Fusion, spine, lumbar, 360 degree, starting in supine position transitioning to prone SET SCREWS FDA Start: 08-20-2024 Fusion, spine, lumbar, 360 degree, starting in supine position transitioning to prone SET SCREWS FDA Start: 08-20-2024 Fusion, spine, lumbar, 360 degree, starting in supine position transitioning to prone SET SCREWS FDA Start: 08-20-2024 Fusion, spine, lumbar, 360 degree, starting in supine position transitioning to prone WASHER FDA Start: 08-20-2024 Fusion, spine, lumbar, 360 degree, starting in supine position transitioning to prone Gelatin haemostatic agent [id number] FDA Start: 08-20-2024 Fusion, spine, lumbar, 360 degree, starting in supine position transitioning to prone 45MM FRANCI FDA Start: 08-20-2024 Fusion, spine, lumbar, 360 degree, starting in supine position transitioning to prone 50 MM FRANCI FDA Start: 08-20-2024 Fusion, spine, lumbar, 360 degree, starting in supine position transitioning to prone 7X50 INSPECTOR AIDE SCREW FDA Start: 08-20-2024 Fusion, spine, lumbar, 360 degree, starting in supine position transitioning to prone 7X50 INSPECTOR AIDE SCREW FDA Start: 08-20-2024 Fusion, spine, lumbar, 360 degree, starting in supine position transitioning to prone 7X50 INSPECTOR AIDE SCREW FDA Start: 08-20-2024 Fusion, spine, lumbar, 360 degree, starting in supine position transitioning to prone 7X50 INSPECTOR AIDE SCREW FDA Start: 08-20-2024 Fusion, spine, lumbar, 360 degree, starting in supine position transitioning to prone BONE,30CC CRUSH CANC FDA Start: 08-20-2024 Fusion, spine, lumbar, 360 degree, starting in supine position transitioning to prone BOWTIE SCREW FDA Start: 08-20-2024 Fusion, spine, lumbar, 360 degree, starting in supine position transitioning to prone 12X50 COUGAR LS CAGE FDA Start: 08-20-2024 Fusion, spine, lumbar, 360 degree, starting in supine position transitioning to prone SET SCREWS FDA Start: 08-20-2024 Fusion, spine, lumbar, 360 degree, starting in supine position transitioning to prone SET SCREWS FDA Start: 08-20-2024 Fusion, spine, lumbar, 360 degree, starting in supine position transitioning to prone SET SCREWS FDA Start: 08-20-2024 Fusion, spine, lumbar, 360 degree, starting in supine position transitioning to prone SET SCREWS FDA Start: 08-20-2024 Fusion, spine, lumbar, 360 degree, starting in supine position transitioning to prone WASHER FDA Start: 08-20-2024 Fusion, spine, lumbar, 360 degree, starting in supine position transitioning to prone 45MM FRANCI FDA Start: 08-20-2024 Fusion, spine, lumbar, 360 degree, starting in supine position transitioning to prone 50 MM FRANCI FDA Start: 08-20-2024 Fusion, spine, lumbar, 360 degree, starting in supine position transitioning to prone 7X50 INSPECTOR AIDE SCREW FDA Start: 08-20-2024 Fusion, spine, lumbar, 360 degree, starting in supine position transitioning to prone 7X50 INSPECTOR AIDE SCREW FDA Start: 08-20-2024 Fusion, spine, lumbar, 360 degree, starting in supine position transitioning to prone 7X50 INSPECTOR AIDE SCREW FDA Start: 08-20-2024 Fusion, spine, lumbar, 360 degree, starting in supine position transitioning to prone 7X50 INSPECTOR AIDE SCREW FDA Start: 08-20-2024 Fusion, spine, lumbar, 360 degree, starting in supine position transitioning to prone BONE,30CC CRUSH CANC FDA Start: 08-20-2024 Fusion, spine, lumbar, 360 degree, starting in supine position transitioning to prone BOWTIE SCREW FDA Start: 08-20-2024 Fusion, spine, lumbar, 360 degree, starting in supine position transitioning to prone 12X50 COUGAR LS CAGE FDA Start: 08-20-2024 Fusion, spine, lumbar, 360 degree, starting in supine position transitioning to prone SET SCREWS FDA Start: 08-20-2024 Fusion, spine, lumbar, 360 degree, starting in supine position transitioning to prone SET SCREWS FDA Start: 08-20-2024 Fusion, spine, lumbar, 360 degree, starting in supine position transitioning to prone SET SCREWS FDA Start: 08-20-2024 Fusion, spine, lumbar, 360 degree, starting in supine position transitioning to prone SET SCREWS FDA Start: 08-20-2024 Fusion, spine, lumbar, 360 degree, starting in supine position transitioning to prone WASHER FDA Start: 08-20-2024 Fusion, spine, lumbar, 360 degree, starting in supine position transitioning to prone 45MM FRANCI FDA Start: 08-20-2024 Fusion, spine, lumbar, 360 degree, starting in supine position transitioning to prone 50 MM FRANCI FDA Start: 08-20-2024 Fusion, spine, lumbar, 360 degree, starting in supine position transitioning to prone 7X50 INSPECTOR AIDE SCREW FDA Start: 08-20-2024 Fusion, spine, lumbar, 360 degree, starting in supine position transitioning to prone 7X50 INSPECTOR AIDE SCREW FDA Start: 08-20-2024 Fusion, spine, lumbar, 360 degree, starting in supine position transitioning to prone 7X50 INSPECTOR AIDE SCREW FDA Start: 08-20-2024 Fusion, spine, lumbar, 360 degree, starting in supine position transitioning to prone 7X50 INSPECTOR AIDE SCREW FDA Start: 08-20-2024 Fusion, spine, lumbar, 360 degree, starting in supine position transitioning to prone BONE,30CC CRUSH CANC FDA Start: 08-20-2024 Fusion, spine, lumbar, 360 degree, starting in supine position transitioning to prone BOWTIE SCREW FDA Start: 08-20-2024 Fusion, spine, lumbar, 360 degree, starting in supine position transitioning to prone 12X50 COUGAR LS CAGE FDA Start: 08-20-2024 Fusion, spine, lumbar, 360 degree, starting in supine position transitioning to prone SET SCREWS FDA Start: 08-20-2024 Fusion, spine, lumbar, 360 degree, starting in supine position transitioning to prone SET SCREWS FDA Start: 08-20-2024 Fusion, spine, lumbar, 360 degree, starting in supine position transitioning to prone SET SCREWS FDA Start: 08-20-2024 Fusion, spine, lumbar, 360 degree, starting in supine position transitioning to prone SET SCREWS FDA Start: 08-20-2024 Fusion, spine, lumbar, 360 degree, starting in supine position transitioning to prone WASHER FDA Start: 08-20-2024 Fusion, spine, lumbar, 360 degree, starting in supine position transitioning to prone 45MM FRANCI FDA Start: 08-20-2024 Fusion, spine, lumbar, 360 degree, starting in supine position transitioning to prone 50 MM FRANCI FDA Start: 08-20-2024 Fusion, spine, lumbar, 360 degree, starting in supine position transitioning to prone 7X50 INSPECTOR AIDE SCREW FDA Start: 08-20-2024 Fusion, spine, lumbar, 360 degree, starting in supine position transitioning to prone 7X50 INSPECTOR AIDE SCREW FDA Start: 08-20-2024 Fusion, spine, lumbar, 360 degree, starting in supine position transitioning to prone 7X50 INSPECTOR AIDE SCREW FDA Start: 08-20-2024 Fusion, spine, lumbar, 360 degree, starting in supine position transitioning to prone 7X50 INSPECTOR AIDE SCREW FDA Start: 08-20-2024 Fusion, spine, lumbar, 360 degree, starting in supine position transitioning to prone BONE,30CC CRUSH CANC FDA Start: 08-20-2024 Fusion, spine, lumbar, 360 degree, starting in supine position transitioning to prone BOWTIE SCREW FDA Start: 08-20-2024 Fusion, spine, lumbar, 360 degree, starting in supine position transitioning to prone 12X50 COUGAR LS CAGE FDA Start: 08-20-2024 Fusion, spine, lumbar, 360 degree, starting in supine position transitioning to prone SET SCREWS FDA Start: 08-20-2024 Fusion, spine, lumbar, 360 degree, starting in supine position transitioning to prone SET SCREWS FDA Start: 08-20-2024 Fusion, spine, lumbar, 360 degree, starting in supine position transitioning to prone SET SCREWS FDA Start: 08-20-2024 Fusion, spine, lumbar, 360 degree, starting in supine position transitioning to prone SET SCREWS FDA Start: 08-20-2024 Fusion, spine, lumbar, 360 degree, starting in supine position transitioning to prone WASHER FDA Start: 08-20-2024 Fusion, spine, lumbar, 360 degree, starting in supine position transitioning to prone 45MM FRANCI FDA Start: 08-20-2024 Fusion, spine, lumbar, 360 degree, starting in supine position transitioning to prone 50 MM FRANCI FDA Start: 08-20-2024 Fusion, spine, lumbar, 360 degree, starting in supine position transitioning to prone 7X50 INSPECTOR AIDE SCREW FDA Start: 08-20-2024 Fusion, spine, lumbar, 360 degree, starting in supine position transitioning to prone 7X50 INSPECTOR AIDE SCREW FDA Start: 08-20-2024 Fusion, spine, lumbar, 360 degree, starting in supine position transitioning to prone 7X50 INSPECTOR AIDE SCREW FDA Start: 08-20-2024 Fusion, spine, lumbar, 360 degree, starting in supine position transitioning to prone 7X50 INSPECTOR AIDE SCREW FDA Start: 08-20-2024 Fusion, spine, lumbar, 360 degree, starting in supine position transitioning to prone BONE,30CC CRUSH CANC FDA Start: 08-20-2024 Fusion, spine, lumbar, 360 degree, starting in supine position transitioning to prone BOWTIE SCREW FDA Start: 08-20-2024 Fusion, spine, lumbar, 360 degree, starting in supine position transitioning to prone 12X50 COUGAR LS CAGE FDA Start: 08-20-2024 Fusion, spine, lumbar, 360 degree, starting in supine position transitioning to prone SET SCREWS FDA Start: 08-20-2024 Fusion, spine, lumbar, 360 degree, starting in supine position transitioning to prone SET SCREWS FDA Start: 08-20-2024 Fusion, spine, lumbar, 360 degree, starting in supine position transitioning to prone SET SCREWS FDA Start: 08-20-2024 Fusion, spine, lumbar, 360 degree, starting in supine position transitioning to prone SET SCREWS FDA Start: 08-20-2024 Fusion, spine, lumbar, 360 degree, starting in supine position transitioning to prone WASHER FDA Start: 08-20-2024 Fusion, spine, lumbar, 360 degree, starting in supine position transitioning to prone 45MM FRANCI FDA Start: 08-20-2024 Fusion, spine, lumbar, 360 degree, starting in supine position transitioning to prone 50 MM FRANCI FDA Start: 08-20-2024 Fusion, spine, lumbar, 360 degree, starting in supine position transitioning to prone 7X50 INSPECTOR AIDE SCREW FDA Start: 08-20-2024 Fusion, spine, lumbar, 360 degree, starting in supine position transitioning to prone 7X50 INSPECTOR AIDE SCREW FDA Start: 08-20-2024 Fusion, spine, lumbar, 360 degree, starting in supine position transitioning to prone 7X50 INSPECTOR AIDE SCREW FDA Start: 08-20-2024 Fusion, spine, lumbar, 360 degree, starting in supine position transitioning to prone 7X50 INSPECTOR AIDE SCREW FDA Start: 08-20-2024 Fusion, spine, lumbar, 360 degree, starting in supine position transitioning to prone BONE,30CC CRUSH CANC FDA Start: 08-20-2024 Fusion, spine, lumbar, 360 degree, starting in supine position transitioning to prone BOWTIE SCREW FDA Start: 08-20-2024 Goals Date Patient Goal Desired Activity /State Functional Status Date Assessment Result Facility 08-21-2024 Functional status Chair [facility] Work Phone: 11-29-2016 Are you deaf, or do you have serious difficulty hearing No 11/29/2016 4:41 PM EDT Keya Amin PA-C [facility] Work Phone: 11-29-2016 Are you blind, or do you have serious difficulty seeing, even when wearing glasses No 11/29/2016 4:41 PM EDT Keya Amin PA-C [facility] 11-29-2016 Do you have serious difficulty walking or climbing stairs No 11/29/2016 4:41 PM EDT Keya Amin PA-C [facility] 11-29-2016 Do you have difficul ty dressing or bathing No 11/29/2016 4:41 PM EDT Keya Amin PA-C [facility] 11-29-2016 Because of a physica l, mental, or emotional condition, do you have difficulty doing errands alone such as visiting a physician's office or shopping No 11/29/2016 4:41 PM EDT Keya Amin PA-C [facility] Mental Status Date Assessment Result Facility 08-21-2024 Cognitive function Level Of Cons ciousness Awake;Alert;Appropriate;Fol lows Commands [facility] Work Phone: 08-21-2024 Cognitive function Voice/Name [facility] Work Phone: 06-24-2022 Cognitive function Level Of Cons ciousness Awake;Alert;Appropriate;Fol lows Commands [facility] Work Phone: 11-29-2016 Because of a physica l, mental, or emotional condition, do you have serious difficulty concentrating, remembering, or making decisions No 11/29/2016 4:41 PM EDT Keya Amin PA-C [facility] Clinical Notes 11-28-2023 to 12-09-2024 April Schmitt MD PhD - 12/09/2024 9:20 AM EDT Note Date & Type Note Facility 12-09-2024 History of Present illness Narrative Subjective Madisyn Barker is a 69 y.o. female who presents for the following: Psoriasis. Patient last seen 11/28/23. Returns to clinic for follow up of psoriasis and psoriatic arthritis. Patient currently on Tremfya q8 weeks and Leflunomide (prescribed by rheumatology). Patient states she still experiences some intermittent soreness of her joints, but reports overall it is stable. She follows with rheumatology regularly. Review of Systems: No other skin or systemic complaints other than what is documented elsewhere in the note. The following portions of the chart were reviewed this encounter and updated as appropriate: Allergies Meds Problems Med Hx Surg Hx Fam Hx Skin Cancer History Biopsy Log Book No skin cancers from Specimen Tracking. Additional History Specialty Problems None Objective Well appearing patient in no apparent distress; mood and affect are within normal limits. A focused skin examination was performed. All findings within normal limits unless otherwise noted below. Assessment/Plan Skin Exam 1. PSORIASIS Generalized Skin is clear. Body surface area: 0% Joint abnormalities Not assessed, patient sees Rheum every 3 months for PsA Chronic plaque psoriasis with PsA - well controlled on Tremfya and Leflunomide - No active psoriasis today. - Continue Tremfya q2 months. Refills sent. - Pt notes PsA is stable. She continues to see Rheumatology. Continue Leflunomide per rheumatology for psoriatic arthritis - Last Tspot 11/2022 was negative. New order placed. - RTC in 1 year. Related Procedures Follow Up In Dermatology T-SPOT (Tb) Follow Up In Dermatology - Established Patient Related Medications guselkumab (Tremfya) 100 mg/mL injection Inject 1 mL (100 mg) under the skin every 8 (eight) weeks. RTC in 1 year for follow up of psoriasis. Gertrudis Masters DO I saw and evaluated the patient. I personally obtained the bloom and critical portions of the history and physical exam or was physically present for bloom and critical portions performed by the resident/fellow. I reviewed the resident/fellow's documentation and discussed the patient with the resident/fellow. I agree with the resident/fellow's medical decision making as documented in the note. April Schmitt MD PhD documented in this encounter [facility] Work Phone: 11-11-2024 Evaluation note Diagnosis Onset Date Resolution S/P lumbar fusion acute October 9:51am [facility] Work Phone: 1(380) 409-798705-20-2025 Evaluation note* Diagnosis Onset Date Resolution Status Admit Date S/P lumbar fusion acute October 9:51am Lumbar scoliosis acute January 242024 9:10am S/P lumbar fusion acute February 13, 2025 9:10am [facility] Work Phone: 1(490) 769-427405-20-2025 Evaluation note* Diagnosis Onset Date Resolution Status Admit Date S/P lumbar fusion acute October 9:51am Lumbar scoliosis acute January 242024 9:10am Other intervertebral disc degeneration, lumbar region with discogenic back acute February 13 9:10am S/P lumbar fusion acute February 13, 2025 9:10am Sacroiliitis acute February 13, 2025 9:10am [facility] Work Phone: 1(810) 345-582004-07-2025 Discharge summary [facility] Physical Therapy [place] [id number] [facility] [place] [address] / REHABILITATION SERVICES DISCHARGE SUMMARY MR#: [id number] Acct: [id number] Name: MADISYN BARKER Rep #: [id number] : 1955 69 From: Cert. ARABELLA PritchardT, OCS Referring Dr.: SABINO Sin Status: REG RCR Insurance: MEDICARE PART A B MEDICARE SUPPLEMENT PLAN Discharge Summary D/C summary: It has been my pleasure to treat MADISYN BARKER referred by SABINO Sin, with the diagnosis of S/P ARTHRODESIS for a total of 9 visit(s). Discharge Date: 09/29/24 Please see the following information for a summary of their discharge status. Subjective Subjective: Doing well RTD 09/30/24 Pain low back: Pain Intensity (Out of 10): 0 Overall Improvement % Improvement: 100 Objective Objective/Function: POSTURE:WFL GAIT: reciprocal pattern SKIN: well approximate NEURO: denies paresthesia/tingling ,reflexes intact reflexes L3-4,L4-5,L5-S1 2/3 FLEXABILITY: hamstrings WFL MMT: quads/hams/hip 4/5 ,ankle 5/5 LUMBAR ROM: flexionWFL ,extension mod loss ,side glidesMIN loss Goals Goal 1:: Patient to be I with HEP for back Goal Progress: Goal Met Goal 2:: Patient to improve lumbar ROM for function of recovery to put on shoes Goal Progress: Goal Met Goal 3:: Patient to improve back oswestry score by 5 points to improve QOL and function Goal Progress: Goal Met Goal 4:: Patient to demonstrate 80% improvement with improve function and return to all functional tasks. Goal Progress: Goal Met Plan Plan: D/C TO HEP D/C Information d/c sentence: If there are questions or concerns regarding this patient's physical therapy, please feel free to call me at [phone]. Thank you for the referral of thispatient. Sincerely, Micha Solomon, PT, Cert MDT, OCS Balance/Gait/Functional tests Balance/Special Test Scores Oswestry Low Back Score: 1 Improvement % Improvement: 100 09/29/24 1056 CC: SABINO Sin; Dr. Álvaro Jackson, DO ~ REFUGIO Signed [facility]04-07-2025 Discharge summary Author Micha Solomon [facility] Note Date/Time September 29, 2024 12:1 6pm [facility] Physical Therapy [facility] [address] [place] [address] [address] [place] [address] / REHABILITATION SERVICES DISCHARGE SUMMARY MR#: [id number] Acct: [id number] Name: MADISYN BARKER Rep #: [id number] : 1955 69 From: Cert. NATALIIA Pritchard, OCS Referring Dr.: SABINO Sin Status: REG RCR Insurance: MEDICARE PART A B MEDICARE SUPPLEMENT PLAN Discharge Summary D/C summary: It has been my pleasure to treat MADISYN BARKER referred by SABINO Sin, with the diagnosis of S/P ARTHRODESIS for a total of 9 visit(s). Discharge Date: 09/29/24 Please see the following information for a summary of their discharge status. Subjective Subjective: Doing well RTD 09/30/24 Pain low back: Pain Intensity (Out of 10): 0 Overall Improvement % Improvement: 100 Objective Objective/Function: POSTURE:WFL GAIT: reciprocal pattern SKIN: well approximate NEURO: denies paresthesia/tingling ,reflexes intact reflexes L3-4,L4-5,L5-S1 2/3 FLEXABILITY: hamstrings WFL MMT: quads/hams/hip 4/5 ,ankle 5/5 LUMBAR ROM: flexionWFL ,extension mod loss ,side glidesMIN loss Goals Goal 1:: Patient to be I with HEP for back Goal Progress: Goal Met Goal 2:: Patient to improve lumbar ROM for function of recovery to put on shoes Goal Progress: Goal Met Goal 3:: Patient to improve back oswestry score by 5 points to improve QOL and function Goal Progress: Goal Met Goal 4:: Patient to demonstrate 80% improvement with improve function and return to all functional tasks. Goal Progress: Goal Met Plan Plan: D/C TO HEP D/C Information d/c sentence: If there are questions or concerns regarding this patient's physical therapy, please feel free to call me at [phone]. Thank you for the referral of thispatient. Sincerely, Micha Solomon PT, Cert T, OCS Balance/Gait/Functional tests Balance/Special Test Scores Oswestry Low Back Score: 1 Improvement % Improvement: 100 <Electronically signed by Cert. ARABELLA Manuel PTT, OCS> 09/29/24 1056 CC: SABINO Sin; Dr. Álvaro Jackson, DO ~ JLAugust Signed [facility] Work Phone: 1(619) 727-239102-26-2025 [facility] Medical Records Department [address] [place] [address] History Physical Exam 08/20/24 0714 MR#: [id number] Acct: [id number] Name: MADISYN BARKER Rep #: [id number] : 1955 68 From: Anabella Styles MD PCP: Dr. Álvaro Jackson, DO Status:ADM IN Location: [place] [address] History and Physical Date of Admission: 08/20/24 MR#: [id number] Acct: [id number] Name: MADISYN BARKERN Rep #: [id number] : 1955 Provider: Dr. Anabella Styles MD Age/Sex: 68/F Location: [facility] [place] Status: Signed Intake Vital Signs 04/03/2408:31 Height 5 ft 5 in Intake Visit Reasons: LUMBAR SPINE Chief Complaint: Pre op Allergies cefdinir Allergy (Verified 08/15/24 13:49) NauseaPenicillins (PCN) Allergy (Verified 08/15/24 13:49) Other Medications ???Medication ???Instructions ???Recorded ???Confirmed ???Type leflunomide 20 mg tablet 20 mg PO DAILY PSORIATIC ARTHRITIS 06/24/22 History guselkumab 100 mg/mL subcutaneous 100 mg subcut Q8W PSORIATIC 12/27/22 08/15/24 Hist ory syringe (Tremfya) ARTHRITIS phentermine 37.5 mg tablet 37.5 mg PO QAM WEIGHT LOSS 04/03/24 08/15/24 Histo ry spironolactone 50 mg tablet 50 mg PO QDAY WATER RETENTION 04/03/24 08/15/24 Hi story duloxetine 30 mg capsule,delayed 30 mg PO DAILY USES FOR BACK 07/08/24 08/15/24 His tory release cholecalciferol (vitamin D3) 25 25 mcg PO QDAY 08/15/24 08/15/24 History mcg (1,000 unit) capsule Have you fallen in the past year?: No PFSH Medical History Wears glasses Alcohol use Psoriatic arthritis Gastric reflux Former smoker Arthritis Surgical History History of colonoscopy H/O: hysterectomy Social History Smoking Status: Former smoker alcohol intake: current what type of physical activity do you participate in: other details: golf HPI LUMBAR SPINE Details: This documentation accurately reflects the service provided and the decisions made by me, Dr. Anabella Styles MD 08/15/24 8646. Part of today???s visit was documented by Izabela Johnson RN, acting as scribe. MADISYN BARKER is a 68 year old F here today for preop appointment for scheduled 360 lumbar fusion L4-L5 on 08-20-2024. She states for the past 3-4 days her pain has gotten worse. She does have increased tightness in her legs as well. Her pain does seem to get better throughout the day. She does take Tylenol for the pain as well. 07/08/24: MADISYN BARKER is a 68 year old F here today for continued low back pain. She had seen Etelvina MOSELEY and was seeing pain management for injections but states that the injections are no longer helping. She states that her first injection helped her for 2 weeks then after that none of the injections helped after that. She has had a total of [address] Barksdale but he did put her on Cymbalta that she started on 07/03/24 for the pain which sometimes helps. Her last injection with Dr. Barksdale was on 06/04/24 and she had a Caudal MARCUS but this didn't help her. She would like to discuss surgery today and see id that is an option for her. 04/03/24: MADISYN BARKER is a 68 year old F here today for Lumbar pain. Patient states her back has bothered her for about 6-8 months but worse with in the last couple months. Patient denies any injury to her back. Patient pain in center of the lower back. Patient has pain that does go down her legs but mostly the left leg. This pain is located over her left anterior tibialis and at times to her calf. He has not had to use an ambulatory devices after the fall. Patient does have numbness and tingling that goes down her legs and mostly left. Patient just is currently doing PT tomorrow is her last session. Patient has never had injections in her back. Patient is taking Prednisone pain and Advil and Mobic. She has been taking 50mg prednisone cut into fourths so approximately 12.5mg, prescribed to her for the last 2 months. Says that she relies on this prednisone to help her pain to make it bearable for the day. Patient states ice and heat does help the back. Patient thinks heat works better. Ortho Exam General General: Yes no acute distress Neurologic: Yes alert and Yes oriented x3 Spine SPINE TESTING CERVICAL THORACIC LUMBAR Musculoskeletal Strength 0=absent - 5=normal Details: Neurological exam of the lower extremities shows 4 power with plantar flexion of the left foot and 5 power in all other muscles. Normal sensations across all dermatomes. No hyperreflexia. No midline or paraspinal tenderness. Romb (more content not included)...[facility]02-21-2025 Evaluation note* Diagnosis Onset Date Resolution Status Admit Date Lumbar scoliosis acute August 15, 2024 1:46pm Spondylolisthesis, lumbar region acute August 15 1:46pm Spinal stenosis of lumbar region with neurogenic claudication resolved August 15 1:46pm S/P lumbar fusion acute ua2024 10:59am Spinal stenosis of lumbar region with neurogenic claudication resolved August 20 10:59am S/P lumbar fusion acute August 232024 9:52am S/P lumbar fusion acute September 302024 9:47am [facility] Work Phone: 1(447) 996-965402-21-2025 NoteHNO ID: [id number] Author: SHARMILA FONSECA MD Service: ? Author Type: Physician Type: Progress Notes Filed: 08/15/2024 09:46 Note Text: Spine Care Path Low Back Pain - Chronic (> 12 weeks) Initial Exam SUBJECTIVE HISTORY OF PRESENT ILLNESS: Madisyn Barker is a 68 year old female with PMH of psoriatic arthritis, osteopenia, who presents with a chief complaint of low back pain radiating into bilateral buttock and posterior lower extremities. Worse with prolonged standing, and transitional movements. Had 3 injections at [facility]--2nd aborted because she could not tolerate, the other two did not provide sustained relief. Unclear what these were. Dr. [facility] [place]. Last injection was around May 2024 she thinks. No bowel or bladder issues, no saddle anesthesia, no weakness in BLE Prior Therapy: Mobic Naproxen Cymbalta Tylenol PT --has gone to 8 sessions at [facility] within the last 6 months with no relief of pain Litigation: No Workers' Compensation: No YELLOW AND BLUE FLAGS No-Neg Attitude; Back Pain is Disabling No-Avoiding Activity (for Fear of Pain) No-Depression or Anxiety Disorders No-Social Problems No-Substance Use Disorder No-Job Dissatisfaction No-Financial Disincentives Patient Entered Questionnaires 08/14/2024 Spine Questions Pain Location: Lower back Pain Duration: 6 months - 1 year Pain over last 6 months: Every day or nearly every day in the past 6 months Symptoms from neck/cervical spine: Yes Employment Status: Retired Involved in law suit/legal claim: No 08/14/2024 Spine Red Flags Any type of cancer: No Unexplained fever: No Bowel or bladder disfunction: No Unintentional weight loss: No Osteoporosis: No 08/14/2024 Neck Questionnaires Benzel Modified CARLI Score 15 (Mild Myelopathy Symptoms) PROMIS Score Percentiles 08/14/2024 Physical Health Physical Function Percentile 2 Sleep Percentile 38 Fatigue Percentile 18* Pain Interference Percentile 1 08/14/2024 PROMIS SOCIAL ROLE SCORE Social Role Satisfaction Percentile 1 11/27/2016 08/14/2024 PROMIS Global Health Scale Physical Health Percentile 4 4 Mental Health Percentile 26* 43 Patient-reported Percentiles provide an indication of how the patient's score ranks in relation to the general population. Higher percentile rankings indicate better function/quality of life. 50th percentile is the average of the general population and indicates half of respondents had a worse score. 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 Psoriatic arthritis Psoriasis Osteopenia Cervical Radiculopathy Menopausal Syndrome Counseling for Estrogen Replacement Therapy PAST MEDICAL HISTORY Diagnosis Date Endometriosis Former smoker Hand eczema Hand and foot eczema Irritable bowel syndrome Obesity, unspecified Osteopenia Psoriasis Psoriatic arthritis (HCC) Dr Smith Shortness of breath normal PFT 01/18/12 Vocal cord paralysis, unilateral partial abductor paralysis PAST SURGICAL HISTORY Procedure Laterality Date COLONOSCOPY FLX DX W/COLLJ SPEC WHEN PFRMD 04/14/08 repeat due 2017 COLONOSCOPY FLX DX W/COLLJ SPEC WHEN PFRMD 06/05/2018 Colonoscopy PAST SURGICAL HISTORY OF tubal sterilization PAST SURGICAL HISTORY OF 06/2000 echocardiogram VAGINAL HYSTERECTOMY UTERUS 250 GM/< 1990 ovaries intact, endometriosis Social History Tobacco Use Smoking status: Former Current packs/day: 0.00 Average packs/day: 0.5 packs/day for 15.0 years (7.5 ttl pk-yrs) Types: Cigarettes Start date: 03/03/1993 Quit date: 03/03/2008 Years since quittin.4 Smokeless tobacco: Never Vaping Use Vaping status: Never Used Substance Use Topics Alcohol use: Yes Alcohol/week: 1.0 standard drink of alcohol Types: 1 Glasses of Wine (5oz) per week Drug use: No FAMILY HISTORY Problem Relation Age of Onset Heart Mother valve disorder Diabetes Mother Stroke Mother Heart Father [place] Heart Brother Heart Brother Heart Sister pacemaker Diabetes Sister Heart Sister [place] Heart Brother ALLERGIES Allergen Reactions Anaprox [Naproxen S* Enbrel [Etanercept] Other: See Comments Joint swelling [place] [Other] Penicillins GI Upset has an intollerance Relafen [Nabumetone] Sulfa (Sulfonamide * GI Upset Voltaren [Diclofena* Unknown CURRENT MEDICATIONS: DULoxetine (CYMBALTA) 30 mg capsule Take 30 mg by mouth two times a day. guselkumab (TREMFYA) 100 mg/mL syrg As directed (more content not included)...[facility]02-21-2025 History of Present illness Narrative* Sharmila Fonseca MD - 08/15/2024 9:09 AM EST Images from the original note were not included. Spine Care Path Low Back Pain - Chronic (> 12 weeks) Initial Exam SUBJECTIVE HISTORY OF PRESENT ILLNESS: Madisyn Barker is a 68 year old female with PMH of psoriatic arthritis, osteopenia, who presentswith a chief complaint of low back pain radiating into bilateral buttock and posterior lower extremities. Worse with prolonged standing, and transitional movements. Had 3 injections at [facility]--2nd aborted because she could not tolerate, the other two did not provide sustained relief. Unclear what these were. Dr. [facility] [place]. Last injection was around May 2024 she thinks. No bowel or bladder issues, no saddle anesthesia, no weakness in BLE Prior Therapy: Mobic Naproxen Cymbalta Tylenol PT --has gone to 8 sessions at [facility] within the last 6 months with no relief of pain Litigation: No Workers' Compensation: No YELLOW & BLUE FLAGS No-Neg Attitude; Back Pain is Disabling No-Avoiding Activity (for Fear of Pain) No-Depression or Anxiety Disorders No-Social Problems No-Substance Use Disorder No-Job Dissatisfaction No-Financial Disincentives Patient Entered Questionnaires 08/14/2024 Spine Questions Pain Location: Lower back Pain Duration: 6 months - 1 year Pain over last 6 months: Every day or nearly every day in the past 6 months Symptoms from neck/cervical spine: Yes Employment Status: Retired Involved in law suit/legal claim: No 08/14/2024 Spine Red Flags Any type of cancer: No Unexplained fever: No Bowel or bladder disfunction: No Unintentional weight loss: No Osteoporosis: No 08/14/2024 Neck Questionnaires Benzel Modified CARLI Score 15 (Mild Myelopathy Symptoms) PROMIS Score Percentiles 08/14/2024 Physical Health Physical Function Percentile 2 Sleep Percentile 38 Fatigue Percentile 18* Pain Interference Percentile 1 08/14/2024 PROMIS SOCIAL ROLE SCORE Social Role Satisfaction Percentile 1 11/27/2016 08/14/2024 PROMIS Global Health Scale Physical Health Percentile 4 4 Mental Health Percentile 26* 43 Patient-reported Percentiles provide an indication of how the patient's score ranks in relation to the general population. Higher percentile rankings indicate better function/quality of life. 50th percentile is the average of the general population and indicates half of respondents had a worse score. 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 Psoriatic arthritis Psoriasis Osteopenia Cervical Radiculopathy Menopausal Syndrome Counseling for Estrogen Replacement Therapy PAST MEDICAL HISTORY Diagnosis Date Endometriosis Former smoker Hand eczema Hand and foot eczema Irritable bowel syndrome Obesity, unspecified Osteopenia Psoriasis Psoriatic arthritis (HCC) Dr Smith Shortness of breath normal PFT 01/18/12 Vocal cord paralysis, unilateral partial abductor paralysis PAST SURGICAL HISTORY Procedure Laterality Date COLONOSCOPY FLX DX W/COLLJ SPEC WHEN PFRMD 04/14/08 repeat due 2017 COLONOSCOPY FLX DX W/COLLJ SPEC WHEN PFRMD 06/05/2018 Colonoscopy PAST SURGICAL HISTORY OF tubal sterilization PAST SURGICAL HISTORY OF 06/2000 echocardiogram VAGINAL HYSTERECTOMY UTERUS 250 GM/< 1990 ovaries intact, endometriosis Social History Tobacco Use Smoking status: Former Current packs/day: 0.00 Average packs/day: 0.5 packs/day for 15.0 years (7.5 ttl pk-yrs) Types: Cigarettes Start date: 03/03/1993 Quit date: 03/03/2008 Years since quittin.4 Smokeless tobacco: Never Vaping Use Vaping status: Never Used Substance Use Topics Alcohol use: Yes Alcohol/week: 1.0 standard drink of alcohol Types: 1 Glasses of Wine (5oz) per week Drug use: No FAMILY HISTORY Problem Relation Age of Onset Heart Mother valve disorder Diabetes Mother Stroke Mother Heart Father [place] Heart Brother Heart Brother Heart Sister pacemaker Diabetes Sister Heart Sister [place] Heart Brother ALLERGIES Allergen Reactions Anaprox [Naproxen S* Enbrel [Etanercept] Other: See Comments Joint swelling [place] [Other] Penicillins GI Upset has an intollerance Relafen [Nabumetone] Sulfa (Sulfonamide * GI Upset Voltaren [Diclofena* Unknown CURRENT MEDICATIONS: DULoxetine (CYMBALTA) 30 mg capsule Take 30 mg by mouth two times a day. guselkumab (TREMFYA) 100 mg/mL syrg As directed Cholecalciferol, Vitamin D3, 5,000 unit cap Take 1 capsule by mouth once daily. leflunomide 20 mg tablet Take 20 mg by mouth once daily. meloxicam (MOBIC) 7.5 mg tablet Take 1 tablet by mouth once daily. biotin 5,000 mcg ODT Take by mouth. Cyanocobalamin (VITAMIN B-12) 2,500 mcg subl Dissolve under the tongue. naproxen sodium (ALEVE) 220 mg tablet Take 440 mg by mouth twice daily with meals. REVIEW OF SYSTEMS: As listed in HPI No unintentional weight loss OBJECTIVE: PHYSICAL EXAM BP 144/78 Pulse 93 Temp 36.6 C (97.8 F) General appearance: Patient is well appearing in no acute distress. Patient is well-hydrated, well nourished, and alert. Skin: Skin color, texture, and turgor are normal. Warm and dry to touch. No rashes or lesions. Head: Normocephalic and atraumatic. Neck/Back: AROM is within functional limits Lungs: Chest symmetric with normal A/P diameter. No chest deformities or chest wall tenderness noted. Normal respiratory rate and rhythm. Heart: Regular rate and rhythm. Abdomen: Soft, non-distended, and non-tender. Extremities: No deformities, edema Neuro/Musculoskeletal: Speech is clear and language is appropriate. Alert and oriented to time, person, and place. Normal muscle bulk and tone. Motor strength is 5/5 for the UL/LL. Light touch intact. SLR is negative. Patient is able to perform squat and walk heel to toe without difficulty. Gait pattern is normal. Data Review: MRI lumbar spine 03/29/24 reviewed with severe central stenosis at L4-L5 with synovial cyst in the left L4-L5 facet joint (report in Epic) ASSESSMENT/PLAN Spinal stenosis of lumbar region with neurogenic claudication (primary encounter diagnosis) Radiculopathy, lumbar region Patient presents today for evaluation of midline low back pain as well as bilateral buttock and posterior leg pain that has been present for at least a year. She has had multiple injections at [facility], although unclear what these are no sustained relief. She reports maybe 2 weeks of relief with a few of the injections. MRI lumbar spine reviewed with patient at length which reveals significant centralstenosis between L4-L5 as well as a left-sided synovial cyst in the L4-L5 facet joint. I would recommend she obtain records of the injections she had done at [facility] and have them sent to my office for review so I can determine if there may be another option for spine intervention that could be offered. She would also benefit from seeing spine surgery in the event that she is already exhausted any conservative intervention I would offer, thus consult placed. Once records sent from [facility] pain management, my office will touch base with patient. Sharmila Fonseca MD Spine Medicine Medical Decision Making: Problems: Moderate: 1+ chronic illnesses with change Data: Unique source(s) for external note(s) reviewed: 3+ Unique test result(s) reviewed: 2 Medical Decision Making Level: 4 - Moderate SIGNATURE: Sharmila Fonseca MD PATIENT NAME: Madisyn Barker DATE: August 15, 2024 TIME: 9:09 AM [facility] Telephone encounter Note * Telephone Encounter - Vane Wayne OCCA - 07/18/2024 11:50 AM EST Summary: [facility] Lumbar Image Report Images from the original note were not included. Patient records received via electronic fax. Uploaded to [employer] via [email or web address]. Please review in scanned documents tab of chart review. LEEANNE Avilez Media Information File Link Scan on 07/17/2024 11:48 AM by Provider External, PA-C: [facility] MR Lumbar Report Bloom Information Document ID File Type Document Type Description [id number] Image External Document(s) [facility] MR Lumbar Report Import Information Attached At Date Time User Dept Patient Level 07/17/2024 11:48 AM Provider External PA-C Document Information Mis Administration: External Document(s) [facility] MR Lumbar Report 07/17/2024 11:48 AM Attached To: Mrs. Mary Barker Source Information Provider, External, PA-C Document [facility] Miscellaneous Notes* Telephone Encounter - Vane Wayne OCCA - 07/18/2024 11:50 AM ESTSummary: [facility] Images from the original note were not included. Patient records received via electronic fax. Uploaded to [employer] via [email or web address]. Please review in scanned documents tab of chart review. LEEANNE Avilez Media Information File Link Scan on 07/17/2024 11:48 AM by Provider, External, PA-C: [facility] MR Lumbar Report Bloom Information Document ID File Type Document Type Description [id number] Image External Document(s) [facility] MR Lumbar Report Import Information Attached At Date Time User Dept Patient Level 07/17/2024 11:48 AM Provider, External PAWinnieC Document Information Misc Administration: External Document(s) [facility] MR Lumbar Report 07/17/2024 11:48 AM Attached To: Mrs. Mary Barker Source Information Provider, External, PA-C Document History documented in this encounterCity [facility]-14-[facility]25 Evaluation note* Diagnosis Onset Date Resolution Status Admit Date Lumbar scoliosis acute July 08, 2024 7:49am Spondylolisthesis, lumbar region acute July 08 7:49am Spinal stenosis of lumbar region with neurogenic claudication resolved July 08 7:49am Lumbar scoliosis acute August 15, 2024 1:46pm Spondylolisthesis, lumbar region acute August 15, 025 1:46pm Spinal stenosis of lumbar region with neurogenic claudication resolved August 15 025 1:46pm S/P lumbar fusion acute 2024 10:59am Spinal stenosis of lumbar region with neurogenic claudication resolved August 20, 025 10:59am S/P lumbar fusion acute August 232024 9:52am [facility] Work Phone: [phone]) 325-258506-11-2024 History of Present illness Narrative* La Harvey APRN.VP PRODUCT - 12/04/2023 1:06 PM EDT Rent And Housing Investigator offered: Patient declines. Hernandez is a 68 year old who presents for an annual gynecologic exam without complaints. Postmenopausal: hysterectomy HRT use: No. Last Pap: hysterectomy History of abnormal pap: No Last mammogram: 2018 normal Last mammogram 2023 pending done @ [facility] today History of abnormal mammogram: No Sexually active: Yes Pain with intercourse: No Postcoital bleeding: No OB History T2 L2 SAB2 IAB0 Ectopic0 Multiple0 Live Births0 Bias Binding Cutter History LMP: Hysterectomy Age at Menarche: Age at First : Age at Menopause: Bias Binding Cutter History Comments: Sexual Activity: Yes; Male; hysterectomy Contraception: Surgical PAST MEDICAL HISTORY Diagnosis Date Endometriosis Former smoker Hand eczema Hand and foot eczema Irritable bowel syndrome Obesity, unspecified Osteopenia Psoriasis Psoriatic arthritis (HCC) Dr Smith Shortness of breath normal PFT 01/18/12 Vocal cord paralysis, unilateral partial abductor paralysis PAST SURGICAL HISTORY Procedure Laterality Date COLONOSCOPY FLX DX W/COLLJ SPEC WHEN PFRMD 04/14/08 repeat due 2017 COLONOSCOPY FLX DX W/COLLJ SPEC WHEN PFRMD 06/05/2018 Colonoscopy PAST SURGICAL HISTORY OF tubal sterilization PAST SURGICAL HISTORY OF 06/2000 echocardiogram VAGINAL HYSTERECTOMY UTERUS 250 GM/< 1990 ovaries intact, endometriosis FAMILY HISTORY Problem Relation Age of Onset Heart Mother valve disorder Diabetes Mother Stroke Mother Heart Father [place] Heart Brother Heart Brother Heart Sister pacemaker Diabetes Sister Heart Sister [place] Heart Brother SOCIAL HISTORY Social History Tobacco Use Smoking status: Former Packs/day: 0.50 Years: 15.00 Additional pack years: 0.00 Total pack years: 7.50 Types: Cigarettes Quit date: 03/03/2008 Years since quittin.7 Smokeless tobacco: Never Vaping Use Vaping Use: Never used Substance Use Topics Alcohol use: Yes Alcohol/week: 1.0 standard drink of alcohol Types: 1 Glasses of Wine (5oz) per week Drug use: No REVIEW OF SYSTEMS Abdomen: No abdominal pain, nausea, vomiting, diarrhea, or constipation. No bloating, early satiety, indigestion, or increased flatulence. Bladder: No dysuria, gross hematuria, urinary frequency, urinary urgency, + rare incontinence Breast: No breast lumps, nipple d/c, overlying skin changes, redness or skin retraction Allergies and current medication updated:Yes EXAM: There were no vitals taken for this visit. GENERAL: pleasant, female in no apparent distress HEENT: Normocephalic, atraumatic, mucus membranes moist, and no lesions NECK: Supple, full range of motion, no adenopathy, and thyroid normal DERMATOLOGY: Normal, without lesions, non-icteric, and non-hirsute BREAST: soft, non-tender, symmetric, no dominant mass, normal nipple-areolar complex, no lymphadenopathy, and no nipple discharge CHEST: Normal inspiratory effort ABDOMEN: soft, non-tender, and no masses PELVIC: external genitalia normal, normal Bartholin's glands, urethra, Cecilia's glands, no vulvar lesions, physiologic discharge present, normal appearing perineal body and perianal region, cervix surgically absent BIMANUAL: no adnexal masses, non-tender, and uterus surgically absent RECTOVAGINAL: deferred. NEURO: alert and oriented x3,exam grossly non-focal EXTREMITIES: normal ASSESSMENT/PLAN: 1) Health maintenance: Pap/HPV screening no longer needed Mammogram up to date Nutrition, exercise and routine health maintenance exams reviewed. Calcium/Vitamin D supplementation information provided. Colon cancer screening: up to date with screening 2) Follow up one year or sooner as needed La Harvey APRN.CNP documented in this encounterCity Hospital06-11-2024 NoteHNO ID: [id number] Author: LA HARVEY APRN.CNP Service: ? Author Type: Nurse Practitioner Type: Progress Notes Filed: 12/04/2023 14:02 Note Text: Rent And Housing Investigator offered: Patient declinesMartinez Hernandez is a 68 year old who presents for an annual gynecologic exam without complaints. Postmenopausal: hysterectomy HRT use: No. Last Pap: hysterectomy History of abnormal pap: No Last mammogram: 2018 normal Last mammogram 2023 pending done @ [facility] today History of abnormal mammogram: No Sexually active: Yes Pain with intercourse: No Postcoital bleeding: No OB History T2 L2 SAB2 IAB0 Ectopic0 Multiple0 Live Births0 Bias Binding Cutter History LMP: Hysterectomy Age at Menarche: Age at First : Age at Menopause: Bias Binding Cutter History Comments: Sexual Activity: Yes; Male; hysterectomy Contraception: Surgical PAST MEDICAL HISTORY Diagnosis Date Endometriosis Former smoker Hand eczema Hand and foot eczema Irritable bowel syndrome Obesity, unspecified Osteopenia Psoriasis Psoriatic arthritis (HCC) Dr Smith Shortness of breath normal PFT 01/18/12 Vocal cord paralysis, unilateral partial abductor paralysis PAST SURGICAL HISTORY Procedure Laterality Date COLONOSCOPY FLX DX W/COLLJ SPEC WHEN PFRMD 04/14/08 repeat due 2017 COLONOSCOPY FLX DX W/COLLJ SPEC WHEN PFRMD 06/05/2018 Colonoscopy PAST SURGICAL HISTORY OF tubal sterilization PAST SURGICAL HISTORY OF 06/2000 echocardiogram VAGINAL HYSTERECTOMY UTERUS 250 GM/< 1990 ovaries intact, endometriosis FAMILY HISTORY Problem Relation Age of Onset Heart Mother valve disorder Diabetes Mother Stroke Mother Heart Father [place] Heart Brother Heart Brother Heart Sister pacemaker Diabetes Sister Heart Sister [place] Heart Brother SOCIAL HISTORY Social History Tobacco Use Smoking status: Former Packs/day: 0.50 Years: 15.00 Additional pack years: 0.00 Total pack years: 7.50 Types: Cigarettes Quit date: 03/03/2008 Years since quittin.7 Smokeless tobacco: Never Vaping Use Vaping Use: Never used Substance Use Topics Alcohol use: Yes Alcohol/week: 1.0 standard drink of alcohol Types: 1 Glasses of Wine (5oz) per week Drug use: No REVIEW OF SYSTEMS Abdomen: No abdominal pain, nausea, vomiting, diarrhea, or constipation. No bloating, early satiety, indigestion, or increased flatulence. Bladder: No dysuria, gross hematuria, urinary frequency, urinary urgency, + rare incontinence Breast: No breast lumps, nipple d/c, overlying skin changes, redness or skin retraction Allergies and current medication updated:Yes EXAM: There were no vitals taken for this visit. GENERAL: pleasant, female in no apparent distress HEENT: Normocephalic, atraumatic, mucus membranes moist, and no lesions NECK: Supple, full range of motion, no adenopathy, and thyroid normal DERMATOLOGY: Normal, without lesions, non-icteric, and non-hirsute BREAST: soft, non-tender, symmetric, no dominant mass, normal nipple-areolar complex, no lymphadenopathy, and no nipple discharge CHEST: Normal inspiratory effort ABDOMEN: soft, non-tender, and no masses PELVIC: external genitalia normal, normal Bartholin's glands, urethra, Cecilia's glands, no vulvar lesions, physiologic discharge present, normal appearing perineal body and perianal region, cervix surgically absent BIMANUAL: no adnexal masses, non-tender, and uterus surgically absent RECTOVAGINAL: deferred. NEURO: alert and oriented x3,exam grossly non-focal EXTREMITIES: normal ASSESSMENT/PLAN: 1) Health maintenance: Pap/HPV screening no longer needed Mammogram up to date Nutrition, exercise and routine health maintenance exams reviewed. Calcium/Vitamin D supplementation information provided. Colon cancer screening: up to date with screening 2) Follow up one year or sooner as needed La Harvey APRN.[facility]06-05-2024 History of Present illness Narrative* April Schmitt MD PhD - 11/28/2023 10:00 AM EDT Subjective Madisyn Barker is a 68 y.o. female who presents for the following: Psoriasis (Follow Up Psoriasis-Clear/Current Treatment: Tremfya). Review of Systems: No other skin or systemic complaints other than what is documented elsewhere in the note. The following portions of the chart were reviewed this encounter and updated as appropriate: Allergies Meds Problems Med Hx Surg Hx Skin Cancer History No skin cancer on file. Specialty Problems None Objective Well appearing patient in no apparent distress; mood and affect are within normal limits. A focused skin examination was performed. All findings within normal limits unless otherwise noted below. Assessment/Plan 1. Psoriasis Well-demarcated erythematous papules and plaques with overlying silvery scale. Body surface area: 0% Joint abnormalities Not assessed, patient sees Rheum every 3 months for PsA Chronic plaque psoriasis, skin disease well controlled on Tremfya. - Continue Tremfya (refills sent today) - patient also given Tremfya sample today - Pt notes PsA is worsening slightly. She continues to see Rheumatology every 3 months. Continue Leflunomide with rheumatology for Psoriatic arthritis - Last Tspot 11/2022 was negative - will resend lab for yearly TB spot - F/u in one year or sooner if needed, will plan for virtual Related Procedures Follow Up In Dermatology Related Medications guselkumab (Tremfya) 100 mg/mL injection Inject 1 mL (100 mg) under the skin every 8 (eight) weeks. 2. Long-term current use of immunomodulator Related Procedures T-Spot TB Aj Barboza DO, MPH PGY-4, Dept. of Dermatology I saw and evaluated the patient. I personally obtained the bloom and critical portions of the historyand physical exam or was physically present for bloom and critical portions performed by the resident/fellow. I reviewed the resident/fellow's documentation and discussed the patient with the resident/thong joseph. I agree with the resident/fellow's medical decision making as documented in the note. April Schmitt MD PhD [facility] Work Phone: Evaluation noteN/ADept. of Dermatology Evaluation noteNo assessment information available [facility] Work Phone: Evaluation note* Diagnosis Psoriasis- Primary Other psoriasis Long-term current use of immunomodulator documented in this encounter [facility] Work Phone: Evaluation note* Diagnosis Encounter for gynecological examination (general) (routine) without abnormal findings- Primary Encounter for screening mammogram for breast cancer [facility] Diagnosis Encounter to establish care- Primary Other reasons for seeking consultation Psoriatic arthritis Psoriatic arthropathy Obesity, unspecified Depression Depressive disorder, not elsewhere classified Benign essential hypertension Essential hypertension, benign Staph skin infection Unspecified local infection of skin and subcutaneous tissue Routine health maintenance Routine general medical examination at a health care facility Physical exam, annual- Primary Routine general medical examination at a health care facility Benign essential hypertension Essential hypertension, benign Psoriatic arthritis Psoriatic arthropathy Obesity, unspecified Depression Depressive disorder, not elsewhere classified Spinal stenosis of lumbar region with neurogenic claudication- Primary Spinal stenosis, lumbar region, with neurogenic claudication Radiculopathy, lumbar region Thoracic or lumbosacral neuritis or radiculitis, unspecified [facility] Diagnosis Psoriasis Other psoriasis documented in this encounter [facility] Work Phone: Hospital Discharge instructions Additional Instructions You may also use [id number] Afrin nasal spray by taking 2 sprays to each nostril once a day prior to bedtime for the next 6 nights to help with symptoms. Please follow-up with ENT to discuss further testing and treatment options because of your persistent symptoms and return to the ER should you have any further concernsWDay[facility] Work Phone: Reason for referral (narrative)* Name Reason for referral NA NA Dept. of Dermatology Rejlwu for referral (narrative)* Consultation (Routine) - Pending Review Specialty Diagnoses / Procedures Referred By Emeli t Referred To Contact Dermatology Diagnoses Psoriasis Procedures Follow Up In Dermatology April Schmitt [place] PhD [id number] [facility] Department [place] [address] April Schmitt [place] PhD [id number] [facility] Department [place] [address] Referral ID Status Reason Start Date Expiration Date V isits Requested Visits Authorized [id number] Pending Review 11/28/2023 11/27/2024 1 1 [facility] Work Phone: Reason for referral (narrative)* Diagnostic Procedure Only (Routine) - Authorized Specialty Diagnoses / Procedures Referred By Emeli andujar Referred To Contact [facility] Diagnoses Encounter for screening mammogram for breast cancer Procedures REMI SCREENING W JOELLE SCREENING DIGITAL BREAST TOMOSYNTHESIS BI SCREENING MAMMOGRAPHY BI 2-VIEW BREAST INC La Walker APRN.CNP [address] [place] [address] [facility] [address] [place] [address] Referral ID Status Reason Start Date Expiration Date Visits Requested Visits Authorized [id number] Authorized Auto-Generat ed Referral 12/04/2023 01/02/2025 1 1 [facility]arrative)No reason for referral information availableSaint [facility] Work Phone: Chief Complaint and Reason for Visit Chief Complaint SCREENING Chief Complaint SCREENING possible sinus infection Chief Complaint LT KNEE PAIN Chief Complaint Admit Date LUMBAR SPINE July 08, 2024 7 :49am PREOP July 29, 2024 1 2:58pm LUMBAR SPINE August 15, 2024 1:46pm Lumbar Fusion L4-5 August 20, 2024 7:14am Lumbar Fusion L4-5 August 20, 2024 10:59am Lumbar Fusion L4-5 August 20, 2024 1:09pm Lumbar Fusion L4-5 August 21, 2024 11:50am Lumbar Fusion L4-5 August 21, 2024 12:50pm lumbar spine 2024 9:5 2am Room 2 2024 10: 05am S/P LUMBAR FUSION. RX HERE September 29 10:30am Reason for Visit Admit Date Lumbar scoliosis July 08, 2024 7 :49am Spondylolisthesis, lumbar region July 08, 2024 7:49am Spinal stenosis of lumbar re gion with neurogenic claudication July 08, 2024 7:49am Lumbar scoliosis August 15, 2024 1:46pm Spondylolisthesis, lumbar region [id number] 1:46pm Spinal stenosis of lumbar re gion with neurogenic claudication August 15, 2024 1:46pm S/P lumbar fusion August 20, 2024 10:59am Spinal stenosis of lumbar re gion with neurogenic claudication August 20, 2024 10:59am S/P lumbar fusion 2024 9:5 2am Chief Complaint Admit Date PREOP July 29, 2024 1 2:58pm LUMBAR SPINE August 15, 2024 1:46pm Lumbar Fusion L4-5 August 20, 2024 7:14am Lumbar Fusion L4-5 August 20, 2024 10:59am Lumbar Fusion L4-5 August 20, 2024 1:09pm Lumbar Fusion L4-5 August 21, 2024 11:50am Lumbar Fusion L4-5 August 21, 2024 12:50pm lumbar spine 2024 9:5 2am Room 2 2024 10: 05am S/P LUMBAR FUSION. RX HERE September 29 10:30am lumbar spine September 30, 2024 9:47 am RM 8 September 30, 2024 9:58 am LUMBAR SPINE November 11, 2024 9:51a m RM 5 November 11, 2024 10:10 am Reason for Visit Admit Date Lumbar scoliosis August 15, 2024 1:46pm Spondylolisthesis, lumbar region Februar y 2024 1:46pm Spinal stenosis of lumbar re gion with neurogenic claudication August 15, 2024 1:46pm S/P lumbar fusion August 20, 2024 10:59am Spinal stenosis of lumbar re gion with neurogenic claudication August 20, 2024 10:59am S/P lumbar fusion 2024 9:5 2am S/P lumbar fusion September 30, 2024 9:47 am Chief Complaint Admit Date LUMBAR SPINE November 11, 2024 9:51a m RM 5 November 11, 2024 10:10 am LUMBAR SPINE February 13, 2025 9: 10am Room 3 February 13, 2025 9: 28am Reason for Visit Admit Date S/P lumbar fusion November 11, 2024 9:51a m Reason for Visit Admit Date S/P lumbar fusion November 11, 2024 9:51a m Lumbar scoliosis February 13, 2025 9: 10am S/P lumbar fusion February 13, 2025 9: 10am Reason for Visit Admit Date S/P lumbar fusion November 11, 2024 9:51a m Lumbar scoliosis February 13, 2025 9: 10am Other intervertebral disc de generation, lumbar region with discogenic back February 13, 2025 9:10am S/P lumbar fusion February 13, 2025 9: 10am Sacroiliitis February 13, 2025 9: 10am Advance Directives No Advanced Directives Records Found Advance Directive Response Recorded Date/ Time Name of Medical Power of Commercial Driver'S License Driver micha andrade June 24, 2022 6:21am Living Will Yes June 24 6:21am Power of Commercial Driver'S License Driver Yes June 24, 2022 6:21am Advance Directive Response Recorded Date/ Time Living Will Yes June 24 7:21am Power of Commercial Driver'S License Driver Yes June 24, 2022 7:21am Advance Directive Response Recorded Date/ Time Living Will No August 20 025 4:40pm Do you have a Healthcare Power of Commercial Driver'S License Driver? No August 20, 2024 4:40pm Summary Purpose Family History No Family History Records FoundNo Family History Records FoundNo Family History Records FoundNo Family History Records FoundNo Family History Records Found Additional Source Comments Goals (unrecognized section and content) Goals may be documented in a n alternate sectionGoals may be documented in an alternate sectionGoals may be documented in an alternate sectionGoals may be documented in an alternate sectionGoals may be documented in an alternate sectionGoals may be documented in an alternate sectionGoals may be documented in an alternate sectionGoals may be documented in an alternate sectionGoals may be documented in an alternate section Care Teams (unrecognized sec tion and content) Team Status: Active Member Role Status Dates Dr. Álvaro Jackson DO Primary Care Provider Active Team Status: Active Member Role Status Dates Dr. Álvaro Jackson DO Primary Care Provider Active Start: July 29, 2024 End: July 29, 2024 Dr. Jone Abarca MD Attending Provider Active S tart: July 29, 2024 End: July 29, 2024 Dr. Anabella Styles MD Referring Provider Active Start: July 29, 2024 End: July 29, 2024 Team Status: Inactive Member Role Status Dates Dr. Álvaro Jackson DO Primary Care Provider Active Start: August 15, 2024 End: August 15, 2024 Dr. Álvaro Jackson DO Referring Provider Active Start: August 15, 2024 End: August 15, 2024 Dr. Anabella Styles MD Attending Provider Active Start: August 15, 2024 End: August 15, 2024 Team Status: Active Member Role Status Dates Dr. Álvaro Jackson DO Primary Care Provider Active Start: August 20, 2024 Dr. Anabella Styles MD Admit Provider Active Star t: August 20, 2024 Dr. Anabella Styles MD Attending Provider Active Start: August 20, 2024 Dr. Anabella Styles MD Referring Provider Active Start: August 20, 2024 Dr. Anabella Styles MD Other Provider Active Star t: August 20, 2024 Team Status: Inactive Member Role Status Dates Dr. Álvaro Jcakson DO Primary Care Provider Active Start: August 20, 2024 End: August 21, 2024 Dr. Anabella Styles MD Admit Provider Active Star t: August 20, 2024 End: August 21, 2024 Dr. Anabella Styles MD Attending Provider Active Start: August 20, 2024 End: August 21, 2024 Dr. Anabella Styles MD Referring Provider Active Start: August 20, 2024 End: August 21, 2024 Dr. Joby Tierney , Other Provider Active Start: August 20, 2024 End: August 21, 2024 Dr. Avelina Oviedo MD Other Provider Active St art: August 20, 2024 End: August 21, 2024 Dr. Sandra Rousseau MD Other Provider Active St art: August 20, 2024 End: August 21, 2024 Dr. Terrell Carcamo DO Other Provider Active Start: August 20, 2024 End: August 21, 2024 Dr. Terrell Tinsley MD Other Provider Active Star t: August 20, 2024 End: August 21, 2024 Dr. Jem Wong MD Other Provider Active Sta rt: August 20, 2024 End: August 21, 2024 Dr. Moe Cook MD Other Provider Active S tart: August 20, 2024 End: August 21, 2024 Dr. Shabana Caro DO Other Provider Active Start : August 20, 2024 End: August 21, 2024 Dr. Álvaro Ramirez DO Other Provider Active S tart: August 20, 2024 End: August 21, 2024 Dr. Trena Viera MD Other Provider Active St art: August 20, 2024 End: August 21, 2024 Dr. Garett Cheema MD Other Provider Active Start: August 20, 2024 End: August 21, 2024 Dr. Musa De Santiago MD Other Provider Active Sta rt: August 20, 2024 End: August 21, 2024 Dr. Froy Short MD Other Provider Active Star t: August 20, 2024 End: August 21, 2024 Dr. Scarlet Rodarte MD Other Provider Active Star t: August 20, 2024 End: August 21, 2024 Dr. Adelso Taylor MD Other Provider Active S tart: August 20, 2024 End: August 21, 2024 Team Status: Active Member Role Status Dates Dr. Álvaro Jackson DO Primary Care Provider Active Start: August 20, 2024 Dr. Anabella Styles MD Admit Provider Active Star t: August 20, 2024 Dr. Anabella Styles MD Referring Provider Active Start: August 20, 2024 Dr. Anabella Styles MD Other Provider Active Star t: August 20, 2024 Dr. Joby Tierney , DO Other Provider Active Start: August 20, 2024 Dr. Avelina Oviedo MD Other Provider Active St art: August 20, 2024 Dr. Sandra Rousseau MD Other Provider Active St art: August 20, 2024 Dr. Terrell Carcamo , Other Provider Active Start: August 20, 2024 Dr. Terrell Tinsley MD Other Provider Active Star t: August 20, 2024 Dr. Dean Simons , Attending Provider Active Start: August 20, 2024 Dr. Dean Simons , Other Provider Active Star t: August 20, 2024 Dr. Jem Wong MD Other Provider Active Sta rt: August 20, 2024 Dr. Moe Cook MD Other Provider Active S tart: August 20, 2024 Dr. Shabana Caro DO Other Provider Active Start : August 20, 2024 Dr. Álvaro Ramirez , Other Provider Active S tart: August 20, 2024 Dr. Trena Viera MD Other Provider Active St art: August 20, 2024 Dr. Garett Cheema MD Other Provider Active Start: August 20, 2024 Dr. Musa De Santiago MD Other Provider Active Sta rt: August 20, 2024 Dr. Froy Short MD Other Provider Active Star t: August 20, 2024 Dr. Scarlet Rodarte MD Other Provider Active Star t: August 20, 2024 Dr. Adelso Taylor MD Other Provider Active S tart: August 20, 2024 Team Status: Active Member Role Status Dates Dr. Álvaro Jackson DO Primary Care Provider Active Start: August 21, 2024 Dr. Anabella Styles MD Admit Provider Active Star t: August 21, 2024 Dr. Anabella Styles MD Other Provider Active Star t: August 21, 2024 Dr. Joby Tierney , Other Provider Active Start: August 21, 2024 Dr. Avelina Oviedo MD Other Provider Active St art: August 21, 2024 Dr. Sandra Rousseau MD Other Provider Active St art: August 21, 2024 Dr. Terrell Carcamo , Other Provider Active Start: August 21, 2024 Dr. Terrell Tinsley MD Other Provider Active Star t: August 21, 2024 Dr. Jem Wong MD Other Provider Active Sta rt: August 21, 2024 Dr. Moe Cook MD Other Provider Active S tart: August 21, 2024 Dr. Shabana Caro DO Other Provider Active Start : August 21, 2024 Dr. Álvaro Ramirez , Other Provider Active S tart: August 21, 2024 Dr. Trena Viera MD Other Provider Active St art: August 21, 2024 Dr. Garett Cheema MD Attending Provider Active Start: August 21, 2024 Dr. Garett Cheema MD Other Provider Active Start: August 21, 2024 Dr. Musa De Santiago MD Other Provider Active Sta rt: August 21, 2024 Dr. Froy Short MD Other Provider Active Star t: August 21, 2024 Dr. Scarelt Rodarte MD Other Provider Active Star t: August 21, 2024 Dr. Adelso Taylor MD Other Provider Active S tart: August 21, 2024 Team Status: Active Member Role Status Dates Dr. Álvaro Jackson , Primary Care Provider Active Start: August 21, 2024 Dr. Anabella Styles MD Admit Provider Active Star t: August 21, 2024 Dr. Anabella Styles MD Attending Provider Active Start: August 21, 2024 Dr. Anabella Styles MD Referring Provider Active Start: August 21, 2024 Dr. Anabella Styles MD Other Provider Active Star t: August 21, 2024 Dr. Joby Tierney DO Other Provider Active Start: August 21, 2024 Dr. Avelina Oviedo MD Other Provider Active St art: August 21, 2024 Dr. Sandra Rousseau MD Other Provider Active St art: August 21, 2024 Dr. Terrell Carcamo , Other Provider Active Start: August 21, 2024 Dr. Terrell Tinsley MD Other Provider Active Star t: August 21, 2024 Dr. Jem Wong MD Other Provider Active Sta rt: August 21, 2024 Dr. Moe Cook MD Other Provider Active S tart: August 21, 2024 Dr. Shabana Caro DO Other Provider Active Start : August 21, 2024 Dr. Álvaro Ramirez DO Other Provider Active S tart: August 21, 2024 Dr. Trena Viera MD Other Provider Active St art: August 21, 2024 Dr. Garett Cheema MD Other Provider Active Start: August 21, 2024 Dr. Musa De Santiago MD Other Provider Active Sta rt: August 21, 2024 Dr. Froy Short MD Other Provider Active Star t: August 21, 2024 Dr. Scarlet Rodarte MD Other Provider Active Star t: August 21, 2024 Dr. Adelso Taylor MD Other Provider Active S tart: August 21, 2024 Team Status: Inactive Member Role Status Dates Dr. Álvaro Jackson DO Primary Care Provider Active Start: 2024 End: 2024 Dr. Álvaro Jackson DO Referring Provider Active Start: 2024 End: 2024 SABINO Sin Attending Provider Active Star t: 2024 End: 2024 Team Status: Inactive Member Role Status Dates Dr. Álvaro Jackson DO Primary Care Provider Active Start: 2024 End: 2024 Dr. Jone Abarca MD Attending Provider Active S tart: 2024 End: 2024 Team Status: Inactive Member Role Status Dates Dr. Álvaro Jackson DO Primary Care Provider Active Start: September 29, 2024 End: September 29, 2024 SABINO Sin Attending Provider Active Star t: September 29, 2024 End: September 29, 2024 SABINO Sin Referring Provider Active Star t: September 29, 2024 End: September 29, 2024 Team Status: Inactive Member Role Status Dates Dr. Álvaro Jackson DO Primary Care Provider Active Start: September 30, 2024 End: September 30, 2024 Dr. Álvaro Jackson DO Referring Provider Active Start: September 30, 2024 End: September 30, 2024 Dr. Anabella Styles MD Attending Provider Active Start: September 30, 2024 End: September 30, 2024 Team Status: Inactive Member Role Status Dates Dr. Álvaro Jackson DO Primary Care Provider Active Start: September 30, 2024 End: September 30, 2024 Dr. Jone Abarca MD Attending Provider Active S tart: September 30, 2024 End: September 30, 2024 Team Status: Active Member Role Status Dates Dr. Álvaro Jackson DO Primary Care Provider Active Start: November 11, 2024 Dr. Álvaro Jackson DO Referring Provider Active Start: November 11, 2024 Dr. Anabella Styles MD Attending Provider Active Start: November 11, 2024 Team Status: Inactive Member Role Status Dates Dr. Álvaro Jackson DO Primary Care Provider Active Start: November 11, 2024 End: November 11, 2024 Dr. Jone Abarca MD Attending Provider Active S tart: November 11, 2024 End: November 11, 2024 Team Status: Active Member Role Status Dates Dr. Álvaro Jackson DO Family Provider Active Dr. Álvaro Jackson DO Primary Care Provider Active Team Status: Active Member Role Status Dates Dr. Álvaro Jackson DO Primary Care Prov ider, Attending Provider, Referring Provider Active Team Status: Inactive Member Role Status Dates Dr. Álvaro Jackson DO Primary Care Prov ider, Attending Provider, Referring Provider Active Social Services Counselor Relationship Specialty Start Date End Date Álvaro Jackson DO PCP - General 06/25/17 Team Status: Inactive Member Role Status Dates Dr. Álvaro Jackson DO Primary Care Provider Active Start: July 08, 2024 End: July 08, 2024 Dr. Álvaro Jackson DO Referring Provider Active Start: July 08, 2024 End: July 08, 2024 Dr. Anabella Styles MD Attending Provider Active Start: July 08, 2024 End: July 08, 2024 Team Status: Inactive Member Role Status Dates Dr. Álvaro Jackson DO Primary Care Provider Active Start: November 11, 2024 End: November 11, 2024 Dr. Álvaro Jackson DO Referring Provider Active Start: November 11, 2024 End: November 11, 2024 Dr. Anabella Styles MD Attending Provider Active Start: November 11, 2024 End: November 11, 2024 Team Status: Active Member Role/Relationship Status Dates Dr. Álvaro Jackson DO Primary Care Provider Active Team Status: Inactive Member Role/Relationship Status Dates Dr. Álvaro Jackson DO Primary Care Provider Active Start: November 11, 2024 End: November 11, 2024 Dr. Álvaro Jackson DO Referring Provider Active Start: November 11, 2024 End: November 11, 2024 Dr. Anabella Styles MD Attending Provider Active Start: November 11, 2024 End: November 11, 2024 Team Status: Inactive Member Role/Relationship Status Dates Dr. Álvaro Jackson DO Primary Care Provider Active Start: November 11, 2024 End: November 11, 2024 Dr. Jone Abarca MD Attending Provider Active S tart: November 11, 2024 End: November 11, 2024 Team Status: Active Member Role/Relationship Status Dates Dr. Álvaro Jackson DO Primary Care Provider Active Start: February 13, 2025 Dr. Álvaro Jackson DO Referring Provider Active Start: February 13, 2025 Dr. Anabella Styles MD Attending Provider Active Start: February 13, 2025 Team Status: Inactive Member Role/Relationship Status Dates Dr. Álvaro Jackson DO Primary Care Provider Active Start: February 13, 2025 End: February 13, 2025 Dr. Jone Abarca MD Attending Provider Active S tart: February 13, 2025 End: February 13, 2025 Team Status: Inactive Member Role/Relationship Status Dates Dr. Álvaro Jackson DO Primary Care Provider Active Start: February 13, 2025 End: February 13, 2025 Dr. Álvaro Jackson DO Referring Provider Active Start: February 13, 2025 End: February 13, 2025 Dr. Anabella Styles MD Attending Provider Active Start: February 13, 2025 End: February 13, 2025 Team Status: Inactive Member Role/Relationship Status Dates Dr. Álvaro Jackson DO Primary Care Provider Active Start: February 27, 2025 End: February 27, 2025 Dr. Álvaro Jackson DO Attending Provider Active Start: February 27, 2025 End: February 27, 2025 Dr. Álvaro Jackson DO Referring Provider Active Start: February 27, 2025 End: February 27, 2025 INFORMATION SOURCE (unrecogn ized section and content) DATE CREATED AUTHOR 12/16/2022 [facility] DATE CREATED AUTHOR AUTHOR'S ORGANIZ ATION 08/17/2024 [facility] DATE CREATED AUTHOR AUTHOR'S ORGANIZ ATION 12/11/2024 [facility] DATE CREATED AUTHOR AUTHOR'S ORGANIZ ATION 12/15/2024 [facility] DATE CREATED AUTHOR AUTHOR'S ORGANIZ ATION 03/07/2025 [facility] Reason for Visit (unrecogniz ed section and content) Reason Comments Psoriasis Follow Up Psoriasis- ClearCurrent Treatment: Tremfya Reason Comments Yearly Exam Reason Comments Back Pain Lower back pain Reason Comments Psoriasis Specialty Diagnoses / Procedures Referred By Contanna t Referred To Contact Dermatology Diagnoses Psoriasis Procedures Follow Up In Dermatology April Schmitt MD PhD [id number] [place] [address] Phone: tel: fax: April Schmitt [place] PhD [id number] [place] [address] Phone: tel: fax: Referral ID Status Reason Start Date Expiration Date V isits Requested Visits Authorized [id number] Authorized 11/28/2023 11/27/2024 1 1 Source Comments (unrecognize d section and content) In the event this informatio n is protected by the Federal Confidentiality of Alcohol and Drug Abuse Patient Records regulations: The Federal rules restrict any use of the information to criminally investigate or prosecute any alcohol or drug abuse patient.[facility] the event this information is protected by the Federal Confidentiality of Alcohol and Drug Abuse Patient Records regulations: The Federal rules restrict any use of the information to criminally investigate or prosecute any alcohol or drug abuse patient.[facility] the event this information is protected by the Federal Confidentiality of Alcohol and Drug Abuse Patient Records regulations: The Federal rules restrict any use of the information to criminally investigate or prosecute any alcohol or drug abuse patient.[facility] the event this information is protected by the Federal Confidentiality of Alcohol and Drug Abuse Patient Records regulations: The Federal rules restrict any use of the information to criminally investigate or prosecute any alcohol or drug abuse patient.[facility] FOR RECORDS PERTAINING TO PATIENTS WHO ARE OR HAVE BEEN ENROLLED IN A CHEMICAL DEPENDENCY/SUBSTANCEABUSE PROGRAM, SOME INFORMATION MAY BE OMITTED. This clinical summary was aggregated from multiple sources. Caution should be exercised in using it in the provision of clinical care. This summary normalizes information from multiple sources, and as a consequence, information in this document may materially change the coding, format and clinical context of patient data. In addition, data may be omitted in some cases. CLINICAL DECISIONS SHOULD BE BASED ON THE PRIMARY CLINICAL RECORDS. [facility] [employer] [facility]. provides no warranty or guarantee of the accuracy or completeness of information in this document.
== END | disposition home or self-care (01) ==
LOC: OPBI 07:19
PROVIDERS: PCP Family Medicine; Referring Provider Family Medicine; Visit Provider Family Medicine
DX: Z12.31 Encounter for screening mammogram for malignant neoplasm of breast (principal)
CPT/HCPCS: 77063; 77067

== ENCOUNTER → 2025-03-23 | Outpatient (CLI) | payer MEDICARE, OTHER, SELFPAY ==
[2025-03-23 08:52] LABS: Cholesterol 205 mg/dL (<=200); Low Density Lipoprotein Calc. 115 mg/dL; Triglycerides 96 mg/dL; Very Low Density Lipoprotein 19 mg/dL (5-40); cholesterol:hdl ratio screen 2.88
== END | disposition home or self-care (01) ==
LOC: LAB 07:25
PROVIDERS: PCP Family Medicine; Referring Provider Family Medicine; Visit Provider Family Medicine
DX: I25.10 Atherosclerotic heart disease of native coronary artery without angina pectoris (principal)
CPT/HCPCS: 36415; 80061; 83695